=== PATIENT | male | born 1970 | race African-American/Black ===

== ENCOUNTER 2017-08-27 15:34 | Inpatient (IN) | payer OTHER ==
[2017-08-27 16:08] VITALS: BMI 29.8
--- NOTE | 2017-08-27 17:49 | HP ---
CIWA Score - CIWA Score Nausea/Vomitin Muscle Tremors: 3 Anxiety: 3 Agitation: 3 Paroxysmal Sweats: 2 Orientation: 0-Oriented Tacttile Disturbances: 2-Mild Itch/Numbness/Burn Auditory Disturbances: 2-Mild Harshness/Frighten Visual Disturbances: 1-Very Mild Sensitivity Headache: 2-Mild CIWA-Ar Total Score: 21 Admission ROS BHS - HPI Chief Complaint: I AM HERE FOR DETOX FROM ALCOHOL,COCAINE,XANAX,SEEKING DETOX,WITHDRAWAL SYMPTOM, LAST DETOX IVONE OMALLEYDEBBIE ,06/10 COMPLETED SYNCOPE NICOTINE DEPENDENCE ANXIETY,DEPRESSION,INSOMNIA LONGEST PERIOD OF SOBRIETY 7 YEARS Allergies/Adverse Reactions: Allergies Allergy/AdvReac Type Severity Reaction Status Date / Time No Known Allergies Allergy Verified 08/27/17 17:56 History of Present Illness: THIS 47 YEARS OLD MALE WITH ALCOHOL,,COCAINE,XANAX DEPENDENCE,SEEKING DETOX, MENTIONED Exam Limitations: No Limitations - Ebola screening Have you traveled outside of the country in the last 21 days: No (N) Have you had contact with anyone from an Ebola affected area: No Have you been sick,other than usual withdrawal symptoms: No Do you have a fever: No - Review of Systems Constitutional: Loss of Appetite, Malaise, Night Sweats, Changes in sleep, Weakness, Unintentional Wgt. Loss EENT: reports: Tearing, Nose Congestion Respiratory: reports: No Symptoms reported Cardiac: reports: No Symptoms Reported, Palpitations, Syncope GI: reports: Diarrhea, Nausea, Vomiting, Abdominal cramping : reports: No Symptoms Reported Musculoskeletal: reports: Back Pain, Muscle Pain Integumentary: reports: Dryness Neuro: reports: Headache, Tremors Endocrine: reports: No Symptoms Reported Hematology: reports: No Symptoms Reported Psychiatric: reports: Anxious, Depressed (INSOMNIA) Patient History - Patient Medical History Hx Anemia: No Hx Asthma: No Hx Chronic Obstructive Pulmonary Disease (COPD): No Hx Cancer: No Hx Cardiac Disorders: No Hx Congestive Heart Failure: No Hx Hypertension: No Hx Hypercholesterolemia: No Hx Pacemaker: No HX Cerebrovascular Accident: No Hx Seizures: No Hx Dementia: No Hx Diabetes: No Hx Gastrointestinal Disorders: No Hx Liver Disease: No Hx Genitourinary Disorders: No Hx Sexually Transmitted Disorders: No Hx Renal Disease (ESRD): No Hx Thyroid Disease: No Hx Human Immunodeficiency Virus (HIV): No (LAST 11/17 NEGATIVE) Hx Hepatitis C: No Hx Depression: Yes (ANXIETY,INSONIA) Hx Suicide Attempt: No Hx Bipolar Disorder: No Hx Schizophrenia: No Other Medical History: NO SUICIDAL,NO HOMICIDAL,LOW BACK PAIN - Patient Surgical History Past Surgical History: No - PPD History Previous Implant?: Yes Documented Results: Negative w/proof Implanted On Prior [facility] Admission?: No PPD to be Administered?: No - Smoking Cessation Smoking history: Current every day smoker Have you smoked in the past 12 months: Yes Aproximately how many cigarettes per day: 10 Cigars Per Day: 0 Hx Chewing Tobacco Use: No Initiated information on smoking cessation: Yes 'Breaking Loose' booklet given: 08/27/17 - Substance & Tx. History Hx Alcohol Use: Yes Hx Substance Use: Yes Substance Use Type: Alcohol, Cocaine Hx Substance Use Treatment: Yes (IVONE MCINTOSH 06/10) - Substances Abused Alcohol Route: Oral Frequency: Daily Amount used: 1/5TH OF VODKA/6 PACK OF 24 OZS OF BEER Age of first use: 19 Date of Last Use: 08/27/17 Cocaine Route: Smoking Frequency: 3-6 times per week Amount used: 50$ Age of first use: 19 Date of Last Use: 08/26/17 Alprazolam (Xanax) Route: Oral Frequency: Daily Amount used: 4 MGS Age of first use: 29 Date of Last Use: 08/26/17 Family Disease History - Family Disease History Family Disease History: Diabetes: Father (ALCOHOL,), Other: Father Admission Physical Exam S - Vital Signs Vital Signs: Vital Signs - 24 hr 08/27/17 16:06 Temperature 97.5 F L Pulse Rate 68 Respiratory 18 Rate Blood Pressure 139/86 - Physical General Appearance: Yes: Moderate Distress, Tremorous, Irritable, Sweating, Anxious HEENTM: Yes: Normal ENT Inspection, Normocephalic, EMMANUEL Respiratory: Yes: Lungs Clear, Normal Breath Sounds, No Respiratory Distress Neck: Yes: Within Normal Limits, Supple, Trachea in good position Breast: Yes: Within Normal Limits Cardiology: Yes: Within Normal Limits, Regular Rate, S1, S2, Murmur Abdominal: Yes: Within Normal Limits, Normal Bowel Sounds, Non Tender, Flat, Soft Genitourinary: Yes: Within Normal Limits Musculoskeletal: Yes: Back pain, Muscle Pain Extremities: Yes: Tremors Neurological: Yes: lighting specialist II-XII NML intact, Alert, Motor Strength 5/5 Integumentary: Yes: Dry Lymphatic: Yes: Within Normal Limits - Diagnostic (1) Alcohol dependence with uncomplicated withdrawal Current Visit: Yes Status: Acute (2) Cocaine dependence Current Visit: Yes Status: Acute (3) Cannabis dependence Current Visit: Yes Status: Acute (4) Low back pain Current Visit: Yes Status: Acute (5) Nicotine dependence Current Visit: Yes Status: Acute (6) Insomnia secondary to depression with anxiety Current Visit: Yes Status: Acute (7) Weight loss Current Visit: Yes Status: Acute Cleared for Admission [facility] - Detox or Rehab [facility] Level of Care: Medically Managed Detox Regimen/Protocol: Librium [facility] Breath Alcohol Content Breath Alcohol Content: 0.072 Urine Drug Screen - Results Drug Screen Negative: No Urine Drug Screen Results: ZOHRA-Cocaine, BZO-Benzodiazepines
[2017-08-27] MEDS ORDERED: MAGNESIUM CITRATE 300 ML BOTTLE PO PRN (18:13)
[2017-08-27] MEDS ORDERED: guaiFENesin/D-METHORPHAN HB 10 ML UNIT-DOSE CUPS PO PRN (18:13)
[2017-08-27] MEDS ORDERED: chlordiazePOXIDE HCL 25 MG CAPSULE PO ONE (18:13)
[2017-08-27] MEDS ORDERED: hydrOXYzine PAMOATE 50 MG CAPSULE (FP) PO PRN (18:13)
[2017-08-27] MEDS ORDERED: LOPERAMIDE HCL 2 MG CAPSULE PO PRN (18:13)
[2017-08-27] MEDS ORDERED: ACETAMINOPHEN 325 MG TABLET (FP) PO PRN (18:13)
[2017-08-27] MEDS ORDERED: IBUPROFEN 400 MG TABLET (FP) PO PRN (18:13)
[2017-08-27] MEDS ORDERED: MAGNESIUM HYDROX 2400MG/30ML ORAL SUSPENSION 30 ML CUP PO PRN (18:13)
[2017-08-27] MEDS ORDERED: NICOTINE POLACRILEX 2 MG GUM BC PRN (18:13)
[2017-08-27] MEDS ORDERED: MENTHOL/PHENOL 1 EACH UD MM PRN (18:13)
[2017-08-27] MEDS ORDERED: P-EPHED 60MG/TRIPROLIDI 2.5MG TABLET PO PRN (18:13)
[2017-08-27] MEDS ORDERED: MAG HYDROX/AL HYDROX/SIMETH 30 ML UNIT-DOSE CUP PO PRN (18:13)
[2017-08-27] MEDS ORDERED: chlordiazePOXIDE HCL 25 MG CAPSULE PO PRN (18:13)
[2017-08-27] MEDS: THIAMINE HCL 100 MG TABLET (FP) PO SCH (21:27)
[2017-08-27] MEDS: chlordiazePOXIDE HCL 25 MG CAPSULE PO SCH (22:57)
[2017-08-27 23:23] LABS: URINE APPEARANCE CLEAR; URINE BILIRUBIN NEGATIVE (NEGATIVE); URINE BLOOD NEGATIVE (NEGATIVE); URINE COLOR COLORLESS; URINE GLUCOSE (UA) NEGATIVE (NEGATIVE); URINE KETONE NEGATIVE (NEGATIVE); URINE LEUK ESTERASE NEGATIVE (NEGATIVE); URINE NITRITE NEGATIVE (NEGATIVE); URINE PROTEIN NEGATIVE (NEGATIVE); URINE UROBILINOGEN NEGATIVE mg/dL (0.2-1.0)
[2017-08-28] MEDS: chlordiazePOXIDE HCL 25 MG CAPSULE PO SCH ×4 (05:14→22:12)
--- NOTE | 2017-08-28 07:57 | CONSULT ---
[facility] Psychiatric Consult - Data Date of interview: 08/28/17 Admission source: [facility] Identifying data: Mr Paulino is a 47 years old Black male, father of 3 children, unemployed on food stamp, living in supported [facility] house seeking detox treatment for alcohol, cocaine and xanax Substance Abuse History: Reports history of alcohol, cocaine and xanax use. Refer to addiction conselor's note for further information Medical History: Unremarkable except LBP. Smokes 10 cigarettes daily Psychiatric History: Reports history of Bipolar/Schizophrenia with 3 previous psychiatric admissions all at [facility]. Reports that most recent one was 2 weeks ago and was discharged on Wellbutrin XL 150 mg po daily and Trazadone 50 mg po HS. Reports that he was receiving psychiatric outpatient services at a clinic located at [address] [place] [address] till 2 weeks ago when he was terminated. Denies history of suicidal atempt. At present, reports doing and sleeping well. Denies experiencing psychotic, manic or psychotic symptoms, S/H ideations. Patient is unwilling to be on psychotropic medication at this time Physical/Sexual Abuse/Trauma History: Denies history of emotional, physical or sexual abuse as well as DV relationship Additional Comment: Reports history of multiple arrests incluning one felony conviction. Reports beong on probation till 2019 Mental Status Exam - Mental Status Exam Alert and Oriented to: Time, Place, Person Cognitive Function: Fair Patient Appearance: Well Groomed Mood: Hopeful, Euthymic Patient Behavior: Cooperative Speech Pattern: Clear Voice Loudness: Moderately Soft/Quiet Thought Process: Intact, Goal Oriented Thought Disorder: Not Present Hallucinations: Denies Suicidal Ideation: Denies Homicidal Ideation: Denies Insight/Judgement: Poor Sleep: Fair Appetite: Good Muscle strength/Tone: Normal Gait/Station: Normal Psychiatric Findings - Problem List ([place] 1, 2,3) (1) Schizoaffective disorder Current Visit: Yes Status: Acute (2) Alcohol dependence with uncomplicated withdrawal Current Visit: Yes Status: Acute (3) Cocaine dependence Current Visit: Yes Status: Acute (4) Sedative hypnotic or anxiolytic dependence Current Visit: Yes Status: Acute (5) Nicotine dependence Current Visit: Yes Status: Chronic (6) Low back pain Current Visit: Yes Status: Chronic - Initial Treatment Plan Initial Treatment Plan: Monitor progress
[2017-08-28] MEDS: PRENATAL VITAMINS W/ FOLIC ACID TABLET (FP) PO SCH (10:11)
[2017-08-28 10:13] LABS: HEMATOCRIT 39.5 % (35.4-49); HEMOGLOBIN 12.7 GM/dL (11.7-16.9); MCH 31.4 pg (25.7-33.7); MCHC 32.2 g/dl (32.0-35.9); MEAN CELL VOLUME 97.3 fl (80-96); MEAN PLT VOLUME 8.3 fl (7.5-11.1); PLATELET COUNT 210 K/MM3 (134-434); RBC 4.06 M/mm3 (4.00-5.60); RDW 14.3 % (11.9-15.9); WHITE BLOOD COUNT 7.1 K/mm3 (4.0-10.0)
[2017-08-28 10:15] LABS: ALBUMIN 3.1 g/dl (3.4-5.0); ANION GAP 3 (8-16); BILIRUBIN,TOTAL 0.4 mg/dL (0.2-1.0); BLOOD UREA NITROGEN 17 mg/dL (7-18); CHLORIDE 111 mmol/L (98-107); CO2 29 mmol/L (21-32); CREATININE 1.1 mg/dL (0.7-1.3); GLUCOSE,RANDOM 92 mg/dL (74-106); POTASSIUM 3.9 mmol/L (3.5-5.1); SGOT/AST 18 U/L (15-37); SGPT/ALT 23 U/L (12-78); SODIUM 143 mmol/L (136-145); TOT PROT 5.6 g/dl (6.4-8.2)
[2017-08-28 10:16] LABS: ALK PHOS 84 U/L (45-117)
[2017-08-28 10:41] LABS: SICKLE CELL SCREEN NEGATIVE (NEGATIVE)
--- NOTE | 2017-08-28 13:13 | EKG ---
Test Reason : Blood Pressure : / mmHG Vent. Rate : 075 BPM Atrial Rate : 075 BPM P-R Int : 146 ms QRS Dur : 078 ms QT Int : 384 ms P-R-T Axes : 070 -20 049 degrees QTc Int : 428 ms NORMAL SINUS RHYTHM BIATRIAL ENLARGEMENT ABNORMAL ECG NO PREVIOUS ECGS AVAILABLE BASELINE ARTIFACT Confirmed by MAYI HANNAH, IGOR ([id number]) on 08/28/2017 1:12:47 PM Referred By: Jerald Bell Confirmed By:IGOR SEE MD
--- NOTE | 2017-08-28 13:51 | PN ---
[facility] CIWA - CIWA Score Nausea/Vomitin-No Nausea/No Vomiting Muscle Tremors: 3 Anxiety: 3 Agitation: 2 Paroxysmal Sweats: 3 Orientation: 0-Oriented Tacttile Disturbances: 3-Moderate Itch/Numb/Burn Auditory Disturbances: 0-None Visual Disturbances: 2-Mild Sensitivity Headache: 0-None Present CIWA-Ar Total Score: 16 BHS Progress Note (SOAP) Subjective: Sweating, Tremors, Interrupted Sleep, Anxious. Objective: PT A & O X 3, OBSERVED AMBULATING ON UNIT. NO ACUTE DISTRESS. 08/28/17 13:48 Vital Signs Temperature 96.2 F L 08/28/17 09:40 Pulse Rate 70 08/28/17 09:40 Respiratory Rate 20 08/28/17 09:40 Blood Pressure 129/86 08/28/17 09:40 O2 Sat by Pulse Oximetry (%) Laboratory Tests 08/27/17 08/28/17 08/28/17 23:10 07:40 07:40 WBC 7.1 RBC 4.06 Hgb 12.7 Hct 39.5 MCV 97.3 H MCH 31.4 MCHC 32.2 RDW 14.3 Plt Count 210 MPV 8.3 Sickle Cell Screen Negative Sodium 143 Potassium 3.9 Chloride 111 H Carbon Dioxide 29 Anion Gap 3 L BUN 17 Creatinine 1.1 Creat Clearance w eGFR > 60 Random Glucose 92 Calcium 8.0 L Total Bilirubin 0.4 AST 18 ALT 23 Alkaline Phosphatase 84 Total Protein 5.6 L Albumin 3.1 L Urine Color Colorless Urine Appearance Clear Urine pH 6.0 Ur Specific [place] 1.003 Urine Protein Negative Urine Glucose (UA) Negative Urine Ketones Negative Urine Blood Negative Urine Nitrite Negative Urine Bilirubin Negative Urine Urobilinogen Negative Ur Leukocyte Esterase Negative RPR Titer 08/28/17 07:40 WBC RBC Hgb Hct MCV MCH MCHC RDW Plt Count MPV Sickle Cell Screen Sodium Potassium Chloride Carbon Dioxide Anion Gap BUN Creatinine Creat Clearance w eGFR Random Glucose Calcium Total Bilirubin AST ALT Alkaline Phosphatase Total Protein Albumin Urine Color Urine Appearance Urine pH Ur Specific [place] Urine Protein Urine Glucose (UA) Urine Ketones Urine Blood Urine Nitrite Urine Bilirubin Urine Urobilinogen Ur Leukocyte Esterase RPR Titer Nonreactive LABS NOTED. Assessment: 08/28/17 13:49 WITHDRAWAL SYMPTOMS. Plan: CONTINUE DETOX.
[2017-08-28] MEDS: THIAMINE HCL 100 MG TABLET (FP) PO SCH (22:12)
[2017-08-28] MEDS ORDERED: diphenhydrAMINE HCL 25 MG CAPSULE (FP) PO ONE (23:30)
[2017-08-29] MEDS: chlordiazePOXIDE HCL 25 MG CAPSULE PO SCH ×2 (05:27→10:20)
[2017-08-29] MEDS: PRENATAL VITAMINS W/ FOLIC ACID TABLET (FP) PO SCH (10:20)
--- NOTE | 2017-08-29 11:06 | PN ---
S CIWA - CIWA Score Nausea/Vomitin Muscle Tremors: 2 Anxiety: 2 Agitation: 2 Paroxysmal Sweats: 1-Minimal Palms Moist Orientation: 0-Oriented Tacttile Disturbances: 0-None Auditory Disturbances: 0-None Visual Disturbances: 0-None Headache: 0-None Present CIWA-Ar Total Score: 9 S Progress Note (SOAP) Subjective: slight tremor some night sweats requesting d/c tomorrow to attend rehab @ [facility] because "they might have a bed for me" Objective: 08/29/17 11:04 Vital Signs Temperature 96.3 F L 08/29/17 06:53 Pulse Rate 82 08/29/17 09:11 Respiratory Rate 18 08/29/17 09:11 Blood Pressure 130/90 08/29/17 09:11 O2 Sat by Pulse Oximetry (%) Laboratory Last Values WBC 7.1 K/mm3 (4.0-10.0) 08/28/17 07:40 RBC 4.06 M/mm3 (4.00-5.60) 08/28/17 07:40 Hgb 12.7 GM/dL (11.7-16.9) 08/28/17 07:40 Hct 39.5 % (35.4-49) 08/28/17 07:40 MCV 97.3 fl (80-96) H 08/28/17 07:40 MCH 31.4 pg (25.7-33.7) 08/28/17 07:40 MCHC 32.2 g/dl (32.0-35.9) 08/28/17 07:40 RDW 14.3 % (11.9-15.9) 08/28/17 07:40 Plt Count 210 K/MM3 (134-434) 08/28/17 07:40 MPV 8.3 fl (7.5-11.1) 08/28/17 07:40 Sickle Cell Screen Negative (NEGATIVE) 08/28/17 07:40 Sodium 143 mmol/L (136-145) 08/28/17 07:40 Potassium 3.9 mmol/L (3.5-5.1) 08/28/17 07:40 Chloride 111 mmol/L (98-107) H 08/28/17 07:40 Carbon Dioxide 29 mmol/L (21-32) 08/28/17 07:40 Anion Gap 3 (8-16) L 08/28/17 07:40 BUN 17 mg/dL (7-18) 08/28/17 07:40 Creatinine 1.1 mg/dL (0.7-1.3) 08/28/17 07:40 Creat Clearance w eGFR > 60 (>60) 08/28/17 07:40 Random Glucose 92 mg/dL (74-106) 08/28/17 07:40 Calcium 8.0 mg/dL (8.5-10.1) L 08/28/17 07:40 Total Bilirubin 0.4 mg/dL (0.2-1.0) 08/28/17 07:40 AST 18 U/L (15-37) 08/28/17 07:40 ALT 23 U/L (12-78) 08/28/17 07:40 Alkaline Phosphatase 84 U/L (45-117) 08/28/17 07:40 Total Protein 5.6 g/dl (6.4-8.2) L 08/28/17 07:40 Albumin 3.1 g/dl (3.4-5.0) L 08/28/17 07:40 Urine Color Colorless 08/27/17 23:10 Urine Appearance Clear 08/27/17 23:10 Urine pH 6.0 (5.0-8.0) 08/27/17 23:10 Ur Specific [place] 1.003 (1.001-1.035) 08/27/17 23:10 Urine Protein Negative (NEGATIVE) 08/27/17 23:10 Urine Glucose (UA) Negative (NEGATIVE) 08/27/17 23:10 Urine Ketones Negative (NEGATIVE) 08/27/17 23:10 Urine Blood Negative (NEGATIVE) 08/27/17 23:10 Urine Nitrite Negative (NEGATIVE) 08/27/17 23:10 Urine Bilirubin Negative (NEGATIVE) 08/27/17 23:10 Urine Urobilinogen Negative mg/dL (0.2-1.0) 08/27/17 23:10 Ur Leukocyte Esterase Negative (NEGATIVE) 08/27/17 23:10 RPR Titer Nonreactive (NONREACTIVE) 08/28/17 07:40 labs noted Assessment: 08/29/17 11:04 withdrawal sx no acute distress Plan: continue detox For d/c tomorrow
[2017-08-29] MEDS ORDERED: chlordiazePOXIDE HCL 25 MG CAPSULE PO PRN (17:01)
[2017-08-29] MEDS: chlordiazePOXIDE 5 MG CAPSULE PO SCH ×3 (17:15→22:20)
[2017-08-29] MEDS: THIAMINE HCL 100 MG TABLET (FP) PO SCH (21:46)
[2017-08-29] MEDS ORDERED: chlordiazePOXIDE 5 MG CAPSULE PO SCH (23:00)
[2017-08-30] MEDS ORDERED: chlordiazePOXIDE HCL 10 MG CAPSULE PO SCH ×2 (05:00→23:00)
[2017-08-30 09:05] VITALS: BP 127/88; PULSE 85; TEMP 98.2
--- NOTE | 2017-08-30 13:33 | DS ---
[facility] Detox Discharge Summary Admission Date: 08/27/17 Discharge Date: 08/30/17 - History Present History: Alcohol Dependence, Cannabis Dependence, Cocaine Dependence Additional Comments: PATIENT GOING HOME AT THIS TIME, WILL APPLY FOR ADMISSION AT [facility] OR OTHER REHAB IN THE NEXT FEW DAYS. PATIENT WAS DISCHARGED FROM DETOX UNIT IN STABLE MEDICAL CONDITION. Pertinent Past History: Nicotine Dependence, Depression, Anxiety, Insomnia, Lower Back Pain, Schiozoaffective Disorder. - Physical Exam Results Vital Signs: Vital Signs Temperature 98.2 F 08/30/17 09:03 Pulse Rate 85 08/30/17 09:03 Respiratory Rate 18 08/30/17 09:03 Blood Pressure 127/88 08/30/17 09:03 O2 Sat by Pulse Oximetry (%) Pertinent Admission Physical Exam Findings: WITHDRAWAL SYMPTOMS. Laboratory Tests 08/27/17 08/28/17 08/28/17 23:10 07:40 07:40 WBC 7.1 RBC 4.06 Hgb 12.7 Hct 39.5 MCV 97.3 H MCH 31.4 MCHC 32.2 RDW 14.3 Plt Count 210 MPV 8.3 Sickle Cell Screen Negative Sodium 143 Potassium 3.9 Chloride 111 H Carbon Dioxide 29 Anion Gap 3 L BUN 17 Creatinine 1.1 Creat Clearance w eGFR > 60 Random Glucose 92 Calcium 8.0 L Total Bilirubin 0.4 AST 18 ALT 23 Alkaline Phosphatase 84 Total Protein 5.6 L Albumin 3.1 L Urine Color Colorless Urine Appearance Clear Urine pH 6.0 Ur Specific [place] 1.003 Urine Protein Negative Urine Glucose (UA) Negative Urine Ketones Negative Urine Blood Negative Urine Nitrite Negative Urine Bilirubin Negative Urine Urobilinogen Negative Ur Leukocyte Esterase Negative RPR Titer 08/28/17 07:40 WBC RBC Hgb Hct MCV MCH MCHC RDW Plt Count MPV Sickle Cell Screen Sodium Potassium Chloride Carbon Dioxide Anion Gap BUN Creatinine Creat Clearance w eGFR Random Glucose Calcium Total Bilirubin AST ALT Alkaline Phosphatase Total Protein Albumin Urine Color Urine Appearance Urine pH Ur Specific [place] Urine Protein Urine Glucose (UA) Urine Ketones Urine Blood Urine Nitrite Urine Bilirubin Urine Urobilinogen Ur Leukocyte Esterase RPR Titer Nonreactive LABS NOTED. - Treatment Hospital Course: Detox Protocol Followed, Detoxed Safely, Responded well, Discharged Condition Good, Rehab Referral Accepted Patient has Accepted a Rehab Referral to: [facility] ([place], [place] . - Medication Discharge Medications: Ambulatory Orders NK [No Known Home Medication] 08/27/17 - Diagnosis (1) Alcohol dependence with uncomplicated withdrawal Status: Acute (2) Cannabis dependence Status: Acute (3) Cocaine dependence Status: Acute Qualifiers: Substance use status: uncomplicated Qualified Code(s): F14.20 - Cocaine dependence, uncomplicated (4) Low back pain Status: Chronic Qualifiers: Chronicity: unspecified Back pain laterality: unspecified Sciatica presence: unspecified whether sciatica present Qualified Code(s): M54.5 - Low back pain (5) Nicotine dependence Status: Chronic Qualifiers: Nicotine product type: cigarettes Substance use status: uncomplicated Qualified Code(s): F17.210 - Nicotine dependence, cigarettes, uncomplicated (6) Insomnia secondary to depression with anxiety Status: Acute (7) Weight loss Status: Acute (8) Schizoaffective disorder Status: Acute Qualifiers: Schizoaffective disorder type: unspecified Qualified Code(s): F25.9 - Schizoaffective disorder, unspecified (9) Sedative hypnotic or anxiolytic dependence Status: Acute - AMA Did Patient Leave Against Medical Advice: No
== END 2017-08-30 09:11 | disposition home or self-care (01) | DRG 774 ==
LOC: YASAS 15:34 → Y3N 18:18
PROVIDERS: ADMIT Internal Medicine; ATTEND Internal Medicine
PROC: HZ2ZZZZ Detoxification Services for Substance Abuse Treatment (ICD-10-PCS; principal; 2017-08-27)
DX: F10.230 Alcohol dependence with withdrawal, uncomplicated (principal); F13.20 Sedative, hypnotic or anxiolytic dependence, uncomplicated; F14.20 Cocaine dependence, uncomplicated; F12.20 Cannabis dependence, uncomplicated; F17.210 Nicotine dependence, cigarettes, uncomplicated; F51.05 Insomnia due to other mental disorder; F25.9 Schizoaffective disorder, unspecified; M54.5 Low back pain; R01.1 Cardiac murmur, unspecified; Z87.898 Personal history of other specified conditions; Z59.0 Homelessness
CPT/HCPCS: 36415; 80053; 81003; 85027; 85660; 86593; 93005; 93010

== ENCOUNTER 2017-12-16 08:31 | Inpatient (IN) | payer OTHER ==
[2017-12-16 10:37] VITALS: BMI 26.8
[2017-12-16] MEDS ORDERED: MENTHOL/PHENOL 1 EACH UD MM PRN (14:44)
[2017-12-16] MEDS ORDERED: MAGNESIUM CITRATE 300 ML BOTTLE PO PRN (14:44)
[2017-12-16] MEDS ORDERED: P-EPHED 60MG/TRIPROLIDI 2.5MG TABLET PO PRN (14:44)
[2017-12-16] MEDS ORDERED: NICOTINE POLACRILEX 2 MG GUM BUC PRN (14:44)
[2017-12-16] MEDS ORDERED: chlordiazePOXIDE HCL 25 MG CAPSULE PO PRN ×2 (14:44→16:36)
[2017-12-16] MEDS ORDERED: MAG HYDROX/AL HYDROX/SIMETH 30 ML UNIT-DOSE CUP PO PRN (14:44)
[2017-12-16] MEDS ORDERED: ACETAMINOPHEN 325 MG TABLET (FP) PO PRN (14:44)
[2017-12-16] MEDS ORDERED: guaiFENesin/D-METHORPHAN HB 10 ML UNIT-DOSE CUPS PO PRN (14:44)
[2017-12-16] MEDS ORDERED: MAGNESIUM HYDROX 2400MG/30ML ORAL SUSPENSION 30 ML CUP PO PRN (14:44)
[2017-12-16] MEDS ORDERED: LOPERAMIDE HCL 2 MG CAPSULE PO PRN (14:44)
--- NOTE | 2017-12-16 14:44 | HP ---
CIWA Score - CIWA Score Nausea/Vomitin-Mild Nausea/No Vomiting Muscle Tremors: 4-Moderate,w/Arms Extend Anxiety: 4-Mod. Anxious/Guarded Agitation: 4-Moderately Restless Paroxysmal Sweats: 1-Minimal Palms Moist Orientation: 0-Oriented Tacttile Disturbances: 2-Mild Itch/Numbness/Burn Auditory Disturbances: 0-None Visual Disturbances: 0-None Headache: 0-None Present CIWA-Ar Total Score: 16 Admission ROS S - HPI Chief Complaint: alcohol withdrawal sx Allergies/Adverse Reactions: Allergies Allergy/AdvReac Type Severity Reaction Status Date / Time No Known Allergies Allergy Verified 08/27/17 17:56 History of Present Illness: 47 years old male with long history of alcohol nicotine dependence longest sobriety 7 years has weight loss and depression is admitted to detox Exam Limitations: No Limitations - Ebola screening Have you traveled outside of the country in the last 21 days: No (N) Have you had contact with anyone from an Ebola affected area: No Have you been sick,other than usual withdrawal symptoms: No Do you have a fever: No - Review of Systems Constitutional: Loss of Appetite, Changes in sleep, Unintentional Wgt. Loss, Unexplained wgt Loss EENT: reports: No Symptoms Reported Respiratory: reports: SOB with Exertion Cardiac: reports: No Symptoms Reported GI: reports: Nausea, Poor Appetite, Poor Fluid Intake, Vomiting, Abdominal cramping : reports: No Symptoms Reported Musculoskeletal: reports: No Symptoms Reported Integumentary: reports: No Symptoms Reported Neuro: reports: Tremors Endocrine: reports: No Symptoms Reported Hematology: reports: No Symptoms Reported Psychiatric: reports: Judgement Intact, Orientated x3, Anxious, Depressed Other Systems: Reviewed and Negative Patient History - Patient Medical History Hx Anemia: No Hx Asthma: No Hx Chronic Obstructive Pulmonary Disease (COPD): No Hx Cancer: No Hx Cardiac Disorders: No Hx Congestive Heart Failure: No Hx Hypertension: No Hx Hypercholesterolemia: No Hx Pacemaker: No HX Cerebrovascular Accident: No Hx Seizures: No Hx Dementia: No Hx Diabetes: No Hx Gastrointestinal Disorders: No Hx Liver Disease: No Hx Genitourinary Disorders: No Hx Sexually Transmitted Disorders: No Hx Renal Disease (ESRD): No Hx Thyroid Disease: No Hx Human Immunodeficiency Virus (HIV): No (LAST 06/10 NEGATIVE) Hx Hepatitis C: No Hx Depression: Yes Hx Suicide Attempt: No Hx Bipolar Disorder: No Hx Schizophrenia: No - Patient Surgical History Past Surgical History: No - PPD History Previous Implant?: Yes Documented Results: Negative w/proof Implanted On Prior R Admission?: Yes Date: 06/10/17 PPD to be Administered?: No - Smoking Cessation Smoking history: Current every day smoker Have you smoked in the past 12 months: Yes Aproximately how many cigarettes per day: 10 Cigars Per Day: 0 Hx Chewing Tobacco Use: No Initiated information on smoking cessation: Yes 'Breaking Loose' booklet given: 12/16/17 - Substance & Tx. History Hx Alcohol Use: Yes Hx Substance Use: Yes Substance Use Type: Alcohol, Cocaine Hx Substance Use Treatment: Yes (05/2017) - Substances Abused Alcohol Route: Oral Frequency: Daily Amount used: 1 PINT VODKA Age of first use: 17 Date of Last Use: 12/16/17 Cocaine Route: Smoking Frequency: Daily Amount used: $50 Age of first use: 20 Date of Last Use: 12/15/17 Alprazolam (Xanax) Route: Oral Frequency: 3-6 times per week Amount used: 1-2 PILLS Age of first use: 47 Date of Last Use: 12/14/17 Family Disease History - Family Disease History Family Disease History: Diabetes: Father (ALCOHOL,), Other: Father Admission Physical Exam S - Vital Signs Vital Signs: Vital Signs - 24 hr 12/16/17 10:35 Temperature 97.6 F Pulse Rate 71 Respiratory 20 Rate Blood Pressure 150/78 - Physical General Appearance: Yes: Appropriately Dressed, Mild Distress, Alcohol on Breath , Thin, Tremorous, Irritable, Sweating, Anxious HEENTM: Yes: Hearing grossly Normal, Normocephalic, Normal Voice Respiratory: Yes: Chest Non-Tender, Lungs Clear, Normal Breath Sounds, No Respiratory Distress, No Accessory Muscle Use Neck: Yes: Supple, Trachea in good position Breast: Yes: Breasts Symetrical, No Discharge Cardiology: Yes: Regular Rhythm, Regular Rate, S1, S2 Abdominal: Yes: Non Tender, Flat, Increased Bowel Sounds Genitourinary: Yes: Within Normal Limits Back: Yes: Normal Inspection Musculoskeletal: Yes: full range of Motion, Gait Steady Extremities: Yes: Normal Inspection, Normal Range of Motion, Non-Tender, Tremors Neurological: Yes: Fully Oriented, Alert, Motor Strength 5/5, Normal Response, Depressed Affect Integumentary: Yes: Warm Lymphatic: Yes: Within Normal Limits - Diagnostic (1) Alcohol dependence with uncomplicated withdrawal Current Visit: Yes Status: Acute (2) Schizoaffective disorder Current Visit: Yes Status: Suspected Qualifiers: Schizoaffective disorder type: unspecified Qualified Code(s): F25.9 - Schizoaffective disorder, unspecified (3) Weight loss Current Visit: Yes Status: Acute Cleared for Admission [facility] - Detox or Rehab [facility] Level of Care: Medically Managed Detox Regimen/Protocol: Librium [facility] Breath Alcohol Content Breath Alcohol Content: 0.012 Urine Drug Screen - Results Drug Screen Negative: No Urine Drug Screen Results: ZOHRA-Cocaine
[2017-12-16] MEDS ORDERED: NICOTINE 14 MG/24 HOURS TOPICAL PATCH TD PRN (15:15)
[2017-12-16] MEDS: chlordiazePOXIDE HCL 25 MG CAPSULE PO SCH ×2 (17:05→22:23)
[2017-12-16] MEDS: THIAMINE HCL 100 MG TABLET (FP) PO SCH (22:23)
[2017-12-16] MEDS: MELATONIN 5 MG TABLETS PO PRN (22:23)
[2017-12-16] MEDS ORDERED: chlordiazePOXIDE HCL 25 MG CAPSULE PO SCH (23:00)
[2017-12-16 23:23] LABS: URINE APPEARANCE TURBID; URINE BILIRUBIN NEGATIVE (<2.0 mg/dL); URINE COLOR YELLOW; URINE GLUCOSE (UA) NEGATIVE (NEGATIVE); URINE KETONE NEGATIVE (NEGATIVE); URINE LEUK ESTERASE NEGATIVE (NEGATIVE); URINE NITRITE NEGATIVE (NEGATIVE); URINE PROTEIN NEGATIVE (NEGATIVE)
[2017-12-16 23:32] LABS: URINE MUCUS FEW
[2017-12-17] MEDS: chlordiazePOXIDE HCL 25 MG CAPSULE PO SCH ×4 (06:37→22:08)
--- NOTE | 2017-12-17 08:49 | EKG ---
Test Reason : Blood Pressure : / mmHG Vent. Rate : 060 BPM Atrial Rate : 060 BPM P-R Int : 148 ms QRS Dur : 096 ms QT Int : 430 ms P-R-T Axes : 071 -44 044 degrees QTc Int : 430 ms NORMAL SINUS RHYTHM RIGHT ATRIAL ENLARGEMENT LEFT AXIS DEVIATION PULMONARY DISEASE PATTERN ABNORMAL ECG WHEN COMPARED WITH ECG OF 27-AUG-2017 21:16, NO SIGNIFICANT CHANGE WAS FOUND Confirmed by HARRIS HANNAH, MARLIN ([id number]) on 12/17/2017 8:48:40 AM Referred By: Confirmed By:MARLIN IGLESIAS MD
[2017-12-17] MEDS ORDERED: HYDROCORTISONE 2.5% TOPICAL CREAM 30 GM TUBE PR SCH (10:00)
[2017-12-17 10:13] LABS: HEMATOCRIT 41.2 % (35.4-49); HEMOGLOBIN 13.7 GM/dL (11.7-16.9); MCH 32.9 pg (25.7-33.7); MCHC 33.3 g/dl (32.0-35.9); MEAN CELL VOLUME 98.7 fl (80-96); MEAN PLT VOLUME 9.1 fl (7.5-11.1); PLATELET COUNT 217 K/MM3 (134-434); RBC 4.17 M/mm3 (4.00-5.60); RDW 14.4 % (11.9-15.9); WHITE BLOOD COUNT 5.9 K/mm3 (4.0-10.0)
[2017-12-17] MEDS: PRENATAL VITAMINS W/ FOLIC ACID TABLET (FP) PO SCH (10:28)
[2017-12-17 10:37] LABS: CHLORIDE 109 mmol/L (98-107); POTASSIUM 4.7 mmol/L (3.5-5.1); SODIUM 144 mmol/L (136-145)
[2017-12-17 11:01] LABS: ALBUMIN 3.5 g/dl (3.4-5.0); ALK PHOS 78 U/L (45-117); ANION GAP 7 (8-16); BILIRUBIN,TOTAL 1.1 mg/dL (0.2-1.0); BLOOD UREA NITROGEN 14 mg/dL (7-18); CALCIUM 9.1 mg/dL (8.5-10.1); CO2 28 mmol/L (21-32); CREATININE 1.4 mg/dL (0.7-1.3); GLUCOSE,RANDOM 69 mg/dL (74-106); SGOT/AST 26 U/L (15-37); SGPT/ALT 20 U/L (12-78); TOT PROT 6.5 g/dl (6.4-8.2)
[2017-12-17] MEDS ORDERED: BENZOCAINE 28 GM HEMORRHOIDAL OINTMENT PR ONE (11:45)
--- NOTE | 2017-12-17 12:23 | PN ---
[facility] CIWA - CIWA Score Nausea/Vomitin Muscle Tremors: 3 Anxiety: 3 Agitation: 3 Paroxysmal Sweats: 1-Minimal Palms Moist Orientation: 0-Oriented Tacttile Disturbances: 1-Very Mild Itch/Numbness Auditory Disturbances: 1-Very Mild Visual Disturbances: 1-Very Mild Sensitivity Headache: 2-Mild CIWA-Ar Total Score: 18 S Progress Note (SOAP) Subjective: ALERT,IRRITABLE,ANXIOUS,INTERRUPTED SLEEP,TREMOR,COMPLAINED OF HEMORRHOID Objective: 12/17/17 12:20 Vital Signs Temperature 97.5 F L 12/17/17 09:24 Pulse Rate 63 12/17/17 09:24 Respiratory Rate 20 12/17/17 09:24 Blood Pressure 112/63 12/17/17 09:24 O2 Sat by Pulse Oximetry (%) EKG NSR,QT 430/430 NO CHEST PAIN,NO SOB,NO DIZZINESS Laboratory Last Values WBC 5.9 K/mm3 (4.0-10.0) 12/17/17 05:30 RBC 4.17 M/mm3 (4.00-5.60) 12/17/17 05:30 Hgb 13.7 GM/dL (11.7-16.9) 12/17/17 05:30 Hct 41.2 % (35.4-49) 12/17/17 05:30 MCV 98.7 fl (80-96) H 12/17/17 05:30 MCH 32.9 pg (25.7-33.7) 12/17/17 05:30 MCHC 33.3 g/dl (32.0-35.9) 12/17/17 05:30 RDW 14.4 % (11.9-15.9) 12/17/17 05:30 Plt Count 217 K/MM3 (134-434) 12/17/17 05:30 MPV 9.1 fl (7.5-11.1) 12/17/17 05:30 Sodium 144 mmol/L (136-145) 12/17/17 05:30 Potassium 4.7 mmol/L (3.5-5.1) D 12/17/17 05:30 Chloride 109 mmol/L (98-107) H 12/17/17 05:30 Carbon Dioxide 28 mmol/L (21-32) 12/17/17 05:30 Anion Gap 7 (8-16) L 12/17/17 05:30 BUN 14 mg/dL (7-18) 12/17/17 05:30 Creatinine 1.4 mg/dL (0.7-1.3) H D 12/17/17 05:30 Creat Clearance w eGFR 54.09 (>60) 12/17/17 05:30 Random Glucose 69 mg/dL (74-106) L D 12/17/17 05:30 Calcium 9.1 mg/dL (8.5-10.1) 12/17/17 05:30 Total Bilirubin 1.1 mg/dL (0.2-1.0) H D 12/17/17 05:30 AST 26 U/L (15-37) D 12/17/17 05:30 ALT 20 U/L (12-78) 12/17/17 05:30 Alkaline Phosphatase 78 U/L (45-117) 12/17/17 05:30 Total Protein 6.5 g/dl (6.4-8.2) 12/17/17 05:30 Albumin 3.5 g/dl (3.4-5.0) 12/17/17 05:30 Urine Color Yellow 12/16/17 18:49 Urine Appearance Turbid 12/16/17 18:49 Urine pH 5.0 (5.0-8.0) 12/16/17 18:49 Ur Specific [place] 1.028 (1.001-1.035) 12/16/17 18:49 Urine Protein Negative (NEGATIVE) 12/16/17 18:49 Urine Glucose (UA) Negative (NEGATIVE) 12/16/17 18:49 Urine Ketones Negative (NEGATIVE) 12/16/17 18:49 Urine Blood 1+ (NEGATIVE) H 12/16/17 18:49 Urine Nitrite Negative (NEGATIVE) 12/16/17 18:49 Urine Bilirubin Negative (<2.0 mg/dL) 12/16/17 18:49 Urine Urobilinogen 2.0 mg/dL (0.2-1.0) 12/16/17 18:49 Ur Leukocyte Esterase Negative (NEGATIVE) 12/16/17 18:49 Urine WBC (Auto) None /hpf (3-5) 12/16/17 18:49 Urine RBC (Auto) 2 /hpf (0-3) 12/16/17 18:49 Urine Mucus Few 12/16/17 18:49 HIV 1&2 Antibody Screen Negative 12/16/17 12:00 HIV P24 Antigen Negative 12/16/17 12:00 12/17/17 12:23 LAB PENDING Assessment: 12/17/17 12:23 WITHDRAWAL SYMPTOM Plan: CONTINUE DETOX,HEMORRHOID OINTMENT
[2017-12-17] MEDS ORDERED: CLOTRIMAZOLE 1% CREAM 15 GM TUBE TP ONE (14:03)
--- NOTE | 2017-12-17 15:14 | CONSULT ---
[facility] Psychiatric Consult - Data Date of interview: 12/17/17 Admission source: [facility] Identifying data: Readmission to [facility] for this 47 y/o AA male seeking detox treatment on for alcohol,xanax and cocaine dependence.Patient is ,a father of three,domiciled,unemployed and supported on Public Assistance. Substance Abuse History: Discussed with patient.Mr Paulino confirmed chronic use of alcohol,cocaine and xanax.Smoking history: Current every day smoker. Have you smoked in the past 12 months: Yes. Aproximately how many cigarettes per day : 10. Cigars Per Day: 0. Hx Chewing Tobacco Use: No. Initiated information on smoking cessation: Yes. 'Breaking Loose' booklet given: 12/16/17. - Substance & Tx. History. Hx Alcohol Use: Yes. Hx Substance Use: Yes. Substance Use Type: Alcohol, Cocaine. Hx Substance Use Treatment: Yes (05/2017) . - Substances Abused. Alcohol. Route: Oral. Frequency: Daily. Amount used: 1 PINT VODKA. Age of first use: 17. Date of Last Use: 12/16/17. Cocaine. Route: Smoking. Frequency: Daily. Amount used: $50. Age of first use: 20. Date of Last Use: 12/15/17. Alprazolam (Xanax). Route: Oral. Frequency: 3-6 times per week. Amount used: 1-2 PILLS. Age of first use: 47. Date of Last Use: 12/14/17 Medical History: Patient endorses good general health. Psychiatric History: Patient admits to a history of multiple psychiatric hospitalizations (total of four / all at the same facility : [facility]).Diagnosed with " Bipolar Disorder and Schizophrenia ".Mr Paulino reports past exposure to trazodone,bupropion,clonazepam.NOT taken for months as per self-report.Totally lost to psychiatric OPD care.Patient denies history of suicide attempts. Physical/Sexual Abuse/Trauma History: Patient denies. Additional Comment: Urine Drug Screen Results: ZOHRA-Cocaine.Noted. Mental Status Exam - Mental Status Exam Alert and Oriented to: Time, Place, Person Cognitive Function: Good Patient Appearance: Well Groomed Mood: Hopeful, Euthymic Affect: Appropriate, Normal Range Patient Behavior: Appropriate, Cooperative Speech Pattern: Clear Voice Loudness: Normal Thought Process: Intact, Goal Oriented Thought Disorder: Not Present Hallucinations: Denies Suicidal Ideation: Denies Homicidal Ideation: Denies Insight/Judgement: Poor Sleep: Well Appetite: Good Muscle strength/Tone: Normal Gait/Station: Normal Psychiatric Findings - Problem List ([place] 1, 2,3) (1) Alcohol dependence with uncomplicated withdrawal Current Visit: Yes Status: Acute (2) Cocaine dependence Current Visit: Yes Status: Acute Qualifiers: Substance use status: uncomplicated Qualified Code(s): F14.20 - Cocaine dependence, uncomplicated (3) Nicotine dependence Current Visit: Yes Status: Chronic Qualifiers: Nicotine product type: cigarettes Substance use status: uncomplicated Qualified Code(s): F17.210 - Nicotine dependence, cigarettes, uncomplicated (4) Schizoaffective disorder Current Visit: Yes Status: Suspected Qualifiers: Schizoaffective disorder type: unspecified Qualified Code(s): F25.9 - Schizoaffective disorder, unspecified Comment: As per existing records and self-report.Chronic non-adherence to OPD care and mood stabilizers. (5) Non compliance w medication regimen Current Visit: Yes Status: Chronic - Initial Treatment Plan Initial Treatment Plan: Psychoeducation.Detoxification in progress.Observation.
[2017-12-17] MEDS: CLOTRIMAZOLE 1% CREAM 15 GM TUBE TP SCH (22:07)
[2017-12-17] MEDS: THIAMINE HCL 100 MG TABLET (FP) PO SCH (22:07)
[2017-12-17] MEDS ORDERED: chlordiazePOXIDE HCL 25 MG CAPSULE PO SCH (23:00)
[2017-12-18] MEDS: chlordiazePOXIDE HCL 25 MG CAPSULE PO SCH ×2 (05:38→10:04)
[2017-12-18] MEDS: IBUPROFEN 400 MG TABLET (FP) PO PRN (05:39)
[2017-12-18] MEDS: BENZOCAINE 28 GM HEMORRHOIDAL OINTMENT PR SCH (10:04)
[2017-12-18] MEDS: PRENATAL VITAMINS W/ FOLIC ACID TABLET (FP) PO SCH (10:04)
[2017-12-18] MEDS: CLOTRIMAZOLE 1% CREAM 15 GM TUBE TP SCH ×2 (10:04→22:07)
--- NOTE | 2017-12-18 15:08 | PN ---
S CIWA - CIWA Score Nausea/Vomitin Muscle Tremors: 3 Anxiety: 3 Agitation: 2 Paroxysmal Sweats: 1-Minimal Palms Moist Orientation: 0-Oriented Tacttile Disturbances: 1-Very Mild Itch/Numbness Auditory Disturbances: 1-Very Mild Visual Disturbances: 0-None Headache: 2-Mild CIWA-Ar Total Score: 16 BHS Progress Note (SOAP) Subjective: alert,irritable,anxious,interrupted sleep,tremor Objective: 12/18/17 15:07 Vital Signs Temperature 97.7 F 12/18/17 14:10 Pulse Rate 68 12/18/17 14:10 Respiratory Rate 16 12/18/17 14:10 Blood Pressure 126/84 12/18/17 14:10 O2 Sat by Pulse Oximetry (%) 12/18/17 15:07 Laboratory Last Values WBC 5.9 K/mm3 (4.0-10.0) 12/17/17 05:30 RBC 4.17 M/mm3 (4.00-5.60) 12/17/17 05:30 Hgb 13.7 GM/dL (11.7-16.9) 12/17/17 05:30 Hct 41.2 % (35.4-49) 12/17/17 05:30 MCV 98.7 fl (80-96) H 12/17/17 05:30 MCH 32.9 pg (25.7-33.7) 12/17/17 05:30 MCHC 33.3 g/dl (32.0-35.9) 12/17/17 05:30 RDW 14.4 % (11.9-15.9) 12/17/17 05:30 Plt Count 217 K/MM3 (134-434) 12/17/17 05:30 MPV 9.1 fl (7.5-11.1) 12/17/17 05:30 Sodium 144 mmol/L (136-145) 12/17/17 05:30 Potassium 4.7 mmol/L (3.5-5.1) D 12/17/17 05:30 Chloride 109 mmol/L (98-107) H 12/17/17 05:30 Carbon Dioxide 28 mmol/L (21-32) 12/17/17 05:30 Anion Gap 7 (8-16) L 12/17/17 05:30 BUN 14 mg/dL (7-18) 12/17/17 05:30 Creatinine 1.4 mg/dL (0.7-1.3) H D 12/17/17 05:30 Creat Clearance w eGFR 54.09 (>60) 12/17/17 05:30 Random Glucose 69 mg/dL (74-106) L D 12/17/17 05:30 Calcium 9.1 mg/dL (8.5-10.1) 12/17/17 05:30 Total Bilirubin 1.1 mg/dL (0.2-1.0) H D 12/17/17 05:30 AST 26 U/L (15-37) D 12/17/17 05:30 ALT 20 U/L (12-78) 12/17/17 05:30 Alkaline Phosphatase 78 U/L (45-117) 12/17/17 05:30 Total Protein 6.5 g/dl (6.4-8.2) 12/17/17 05:30 Albumin 3.5 g/dl (3.4-5.0) 12/17/17 05:30 Urine Color Yellow 12/16/17 18:49 Urine Appearance Turbid 12/16/17 18:49 Urine pH 5.0 (5.0-8.0) 12/16/17 18:49 Ur Specific [place] 1.028 (1.001-1.035) 12/16/17 18:49 Urine Protein Negative (NEGATIVE) 12/16/17 18:49 Urine Glucose (UA) Negative (NEGATIVE) 12/16/17 18:49 Urine Ketones Negative (NEGATIVE) 12/16/17 18:49 Urine Blood 1+ (NEGATIVE) H 12/16/17 18:49 Urine Nitrite Negative (NEGATIVE) 12/16/17 18:49 Urine Bilirubin Negative (<2.0 mg/dL) 12/16/17 18:49 Urine Urobilinogen 2.0 mg/dL (0.2-1.0) 12/16/17 18:49 Ur Leukocyte Esterase Negative (NEGATIVE) 12/16/17 18:49 Urine WBC (Auto) None /hpf (3-5) 12/16/17 18:49 Urine RBC (Auto) 2 /hpf (0-3) 12/16/17 18:49 Urine Mucus Few 12/16/17 18:49 RPR Titer Nonreactive (NONREACTIVE) 12/17/17 05:30 Hep C Ab Diagnostic 0.1 s/co ratio (0.0-0.9) 12/17/17 05:30 Liver Fibrosis Interp (.) 12/17/17 05:30 HIV 1&2 Antibody Screen Negative 12/16/17 12:00 HIV P24 Antigen Negative 12/16/17 12:00 Assessment: 12/18/17 15:08 withdrawal symptom Plan: continue detox
[2017-12-18] MEDS: chlordiazePOXIDE 5 MG CAPSULE PO SCH ×2 (17:28→22:07)
[2017-12-18] MEDS: THIAMINE HCL 100 MG TABLET (FP) PO SCH (22:07)
[2017-12-18] MEDS: MELATONIN 5 MG TABLETS PO PRN (22:07)
[2017-12-18] MEDS ORDERED: chlordiazePOXIDE 5 MG CAPSULE PO SCH (23:00)
[2017-12-19] MEDS: chlordiazePOXIDE 5 MG CAPSULE PO SCH ×2 (06:40→10:14)
[2017-12-19] MEDS: IBUPROFEN 400 MG TABLET (FP) PO PRN (09:29)
[2017-12-19] MEDS: PRENATAL VITAMINS W/ FOLIC ACID TABLET (FP) PO SCH (10:13)
[2017-12-19] MEDS: BENZOCAINE 28 GM HEMORRHOIDAL OINTMENT PR SCH (10:14)
[2017-12-19] MEDS: CLOTRIMAZOLE 1% CREAM 15 GM TUBE TP SCH ×2 (10:14→22:03)
--- NOTE | 2017-12-19 13:13 | PN ---
S Progress Note (SOAP) Subjective: ALERT,IRRITABLE,ANXIOUS,INTERRUPTED SLEEP Objective: 12/19/17 13:12 Vital Signs Temperature 96.6 F L 12/19/17 09:30 Pulse Rate 73 12/19/17 09:30 Respiratory Rate 20 12/19/17 09:30 Blood Pressure 131/96 12/19/17 09:30 O2 Sat by Pulse Oximetry (%) Assessment: 12/19/17 13:13 WITHDRAWAL SYMPTOM Plan: CONTINUE DETOX,DISCHARGE IN AM
[2017-12-19] MEDS: chlordiazePOXIDE HCL 10 MG CAPSULE PO SCH ×2 (17:38→22:01)
[2017-12-19] MEDS: THIAMINE HCL 100 MG TABLET (FP) PO SCH (22:01)
[2017-12-19] MEDS ORDERED: chlordiazePOXIDE HCL 10 MG CAPSULE PO SCH (23:00)
[2017-12-20] MEDS: chlordiazePOXIDE HCL 10 MG CAPSULE PO SCH (05:10)
[2017-12-20 06:04] VITALS: BP 107/73; PULSE 59; TEMP 97.2
--- NOTE | 2017-12-20 08:39 | DS ---
[facility] Detox Discharge Summary Admission Date: 12/16/17 Discharge Date: 12/20/17 - History Present History: Alcohol Dependence Additional Comments: 47 years old male admitted 12/16/17 for alcohol withdrawal sx completed alcohol detox regimen tolerated well denies alcohol withdrawal sx alert oriented x 3 no acute distress aftercare [facility] recovery - Physical Exam Results Vital Signs: Vital Signs Temperature 97.2 F L 12/20/17 06:00 Pulse Rate 59 L 12/20/17 06:00 Respiratory Rate 18 12/20/17 06:00 Blood Pressure 107/73 12/20/17 06:00 O2 Sat by Pulse Oximetry (%) Pertinent Admission Physical Exam Findings: withdrawal sx Vital Signs Temperature 97.2 F L 12/20/17 06:00 Pulse Rate 59 L 12/20/17 06:00 Respiratory Rate 18 12/20/17 06:00 Blood Pressure 107/73 12/20/17 06:00 O2 Sat by Pulse Oximetry (%) Laboratory Last Values WBC 5.9 K/mm3 (4.0-10.0) 12/17/17 05:30 RBC 4.17 M/mm3 (4.00-5.60) 12/17/17 05:30 Hgb 13.7 GM/dL (11.7-16.9) 12/17/17 05:30 Hct 41.2 % (35.4-49) 12/17/17 05:30 MCV 98.7 fl (80-96) H 12/17/17 05:30 MCH 32.9 pg (25.7-33.7) 12/17/17 05:30 MCHC 33.3 g/dl (32.0-35.9) 12/17/17 05:30 RDW 14.4 % (11.9-15.9) 12/17/17 05:30 Plt Count 217 K/MM3 (134-434) 12/17/17 05:30 MPV 9.1 fl (7.5-11.1) 12/17/17 05:30 Sodium 144 mmol/L (136-145) 12/17/17 05:30 Potassium 4.7 mmol/L (3.5-5.1) D 12/17/17 05:30 Chloride 109 mmol/L (98-107) H 12/17/17 05:30 Carbon Dioxide 28 mmol/L (21-32) 12/17/17 05:30 Anion Gap 7 (8-16) L 12/17/17 05:30 BUN 14 mg/dL (7-18) 12/17/17 05:30 Creatinine 1.4 mg/dL (0.7-1.3) H D 12/17/17 05:30 Creat Clearance w eGFR 54.09 (>60) 12/17/17 05:30 Random Glucose 69 mg/dL (74-106) L D 12/17/17 05:30 Calcium 9.1 mg/dL (8.5-10.1) 12/17/17 05:30 Total Bilirubin 1.1 mg/dL (0.2-1.0) H D 12/17/17 05:30 AST 26 U/L (15-37) D 12/17/17 05:30 ALT 20 U/L (12-78) 12/17/17 05:30 Alkaline Phosphatase 78 U/L (45-117) 12/17/17 05:30 Total Protein 6.5 g/dl (6.4-8.2) 12/17/17 05:30 Albumin 3.5 g/dl (3.4-5.0) 12/17/17 05:30 Urine Color Yellow 12/16/17 18:49 Urine Appearance Turbid 12/16/17 18:49 Urine pH 5.0 (5.0-8.0) 12/16/17 18:49 Ur Specific [place] 1.028 (1.001-1.035) 12/16/17 18:49 Urine Protein Negative (NEGATIVE) 12/16/17 18:49 Urine Glucose (UA) Negative (NEGATIVE) 12/16/17 18:49 Urine Ketones Negative (NEGATIVE) 12/16/17 18:49 Urine Blood 1+ (NEGATIVE) H 12/16/17 18:49 Urine Nitrite Negative (NEGATIVE) 12/16/17 18:49 Urine Bilirubin Negative (<2.0 mg/dL) 12/16/17 18:49 Urine Urobilinogen 2.0 mg/dL (0.2-1.0) 12/16/17 18:49 Ur Leukocyte Esterase Negative (NEGATIVE) 12/16/17 18:49 Urine WBC (Auto) None /hpf (3-5) 12/16/17 18:49 Urine RBC (Auto) 2 /hpf (0-3) 12/16/17 18:49 Urine Mucus Few 12/16/17 18:49 RPR Titer Nonreactive (NONREACTIVE) 12/17/17 05:30 Hep C Ab Diagnostic 0.1 s/co ratio (0.0-0.9) 12/17/17 05:30 Liver Fibrosis Interp (.) 12/17/17 05:30 HIV 1&2 Antibody Screen Negative 12/16/17 12:00 HIV P24 Antigen Negative 12/16/17 12:00 lab noted - Treatment Hospital Course: Detox Protocol Followed, Detoxed Safely, Responded well, Discharged Condition Good, Rehab Referral Accepted Patient has Accepted a Rehab Referral to: [facility] - Medication Discharge Medications: Ambulatory Orders NK [No Known Home Medication] 08/27/17 - Diagnosis (1) Alcohol dependence with uncomplicated withdrawal Status: Acute (2) Schizoaffective disorder Status: Suspected Qualifiers: Schizoaffective disorder type: unspecified Qualified Code(s): F25.9 - Schizoaffective disorder, unspecified (3) Weight loss Status: Acute - AMA Did Patient Leave Against Medical Advice: No
[2017-12-20] MEDS: CLOTRIMAZOLE 1% CREAM 15 GM TUBE TP SCH (09:47)
[2017-12-20] MEDS: BENZOCAINE 28 GM HEMORRHOIDAL OINTMENT PR SCH (09:47)
[2017-12-20] MEDS: PRENATAL VITAMINS W/ FOLIC ACID TABLET (FP) PO SCH (09:47)
== END 2017-12-20 09:50 | disposition home or self-care (01) | DRG 774 ==
LOC: YASAS 08:31 → Y6N 14:38
PROVIDERS: ADMIT Surgery; ATTEND Surgery
PROC: HZ2ZZZZ Detoxification Services for Substance Abuse Treatment (ICD-10-PCS; principal; 2017-12-16)
DX: F10.230 Alcohol dependence with withdrawal, uncomplicated (principal); F14.20 Cocaine dependence, uncomplicated; F17.210 Nicotine dependence, cigarettes, uncomplicated; F25.9 Schizoaffective disorder, unspecified; R63.4 Abnormal weight loss; Z68.26 Body mass index [BMI] 26.0-26.9, adult; K64.8 Other hemorrhoids; Z91.14 Patient's other noncompliance with medication regimen
CPT/HCPCS: 36415; 80053; 81003; 81015; 85027; 86593; 87389; 93005; 93010

== ENCOUNTER 2018-09-08 15:27 | Inpatient (IN) | payer OTHER ==
[2018-09-08 15:55] VITALS: BMI 27.6
--- NOTE | 2018-09-08 21:59 | HP ---
CIWA Score Nausea/Vomitin (x 2) Muscle Tremors: 3 Anxiety: 2 Agitation: 2 Paroxysmal Sweats: 2 Orientation: 2-Disoriented Date<2 days Tacttile Disturbances: 0-None Auditory Disturbances: 0-None Visual Disturbances: 0-None Headache: 3-Moderate CIWA-Ar Total Score: 17 - Admission Criteria [facility] Guidelines: Admission for Medically Managed Detox: Requires at least one of the followin. CIWA greater than 12 2. Seizures within the past 24 hours 3. Delirium tremens within the past 24 hours 4. Hallucinations within the past 24 hours 5. Acute intervention needed for co occurring medical disorder 6. Acute intervention needed for co occurring psychiatric disorder 7. Severe withdrawal that cannot be handled at a lower level of care (continued vomiting, continued diarrhea, abnormal vital signs) requiring intravenous medication and/or fluids 8. 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 Patient's drug screen was positive for only cocaine and he reports use of heroin about 2 days ago. He has been in previous detox, last in November 2017. He reports history of depression, low back pain and anxiety. He denies suicide attempt and suicidal ideation at this time. Exam Limitations: No Limitations - Ebola screening Have you traveled outside of the country in the last 21 days: No Have you had contact with anyone from an Ebola affected area: No Have you been sick,other than usual withdrawal symptoms: No Do you have a fever: No - Review of Systems Constitutional: Chills, Loss of Appetite, Night Sweats, Changes in sleep EENT: reports: Nose Congestion Respiratory: reports: No Symptoms reported Cardiac: reports: No Symptoms Reported GI: reports: Diarrhea (x 4), Nausea, Poor Appetite, Poor Fluid Intake, Abdominal cramping : reports: No Symptoms Reported Musculoskeletal: reports: Back Pain, Muscle Pain Integumentary: reports: Dryness, Flushing Neuro: reports: Tremors Endocrine: reports: No Symptoms Reported Hematology: reports: No Symptoms Reported Psychiatric: reports: Anxious, Depressed Other Systems: Reviewed and Negative Patient History - Patient Medical History Hx Anemia: No Hx Asthma: No Hx Chronic Obstructive Pulmonary Disease (COPD): No Hx Cancer: No Hx Cardiac Disorders: No Hx Congestive Heart Failure: No Hx Hypertension: No Hx Hypercholesterolemia: No Hx Pacemaker: No HX Cerebrovascular Accident: No Hx Seizures: No Hx Dementia: No Hx Diabetes: No Hx Gastrointestinal Disorders: No Hx Liver Disease: No Hx Genitourinary Disorders: No Hx Sexually Transmitted Disorders: No Hx Renal Disease (ESRD): No Hx Thyroid Disease: No Hx Human Immunodeficiency Virus (HIV): No (LAST 06/10 NEGATIVE) Hx Hepatitis C: No Hx Depression: Yes (Not on medication) Hx Suicide Attempt: No Hx Bipolar Disorder: No Hx Schizophrenia: No Other Medical History: Anxiety - Not on medication - Patient Surgical History Past Surgical History: No - PPD History Previous Implant?: Yes Documented Results: Negative w/proof Implanted On Prior [facility] Admission?: Yes Date: 06/10/17 PPD to be Administered?: Yes - Reproductive History Patient is a Female of Child Bearing Age (11 -55 yrs old): No (male) - Smoking Cessation Smoking history: Current every day smoker Have you smoked in the past 12 months: Yes Aproximately how many cigarettes per day: 10 Cigars Per Day: 0 Hx Chewing Tobacco Use: No Initiated information on smoking cessation: Yes 'Breaking Loose' booklet given: 09/08/18 - Substance & Tx. History Hx Alcohol Use: Yes Hx Substance Use: Yes Substance Use Type: Alcohol, Cocaine Hx Substance Use Treatment: Yes ([facility]) - Substances Abused Alcohol Route: Oral Frequency: Daily Amount used: VODKA - 5 PINTS Age of first use: 17 Date of Last Use: 09/08/18 Family Disease History - Family Disease History Family Disease History: Diabetes: Father (ALCOHOL,), Other: Father Admission Physical Exam S - Vital Signs Vital Signs: Vital Signs - 24 hr 09/08/18 15:53 Temperature 97.8 F Pulse Rate 75 Respiratory 20 Rate Blood Pressure 121/87 - Physical General Appearance: Yes: Moderate Distress, Tremorous, Irritable, Sweating, Anxious HEENTM: Yes: EOMI, Normal ENT Inspection, Normocephalic, Normal Voice, EMMANUEL Respiratory: Yes: Lungs Clear, Normal Breath Sounds Neck: Yes: Supple Breast: Yes: Breast Exam Deferred Cardiology: Yes: Regular Rhythm, Regular Rate Abdominal: Yes: Normal Bowel Sounds, Soft Genitourinary: Yes: Within Normal Limits Back: Yes: Normal Inspection Musculoskeletal: Yes: Back pain, Muscle Pain Extremities: Yes: Tremors Neurological: Yes: health care assistant II-XII NML intact, Alert, Normal Mood/Affect Integumentary: Yes: Warm Lymphatic: Yes: Within Normal Limits - Diagnostic (1) Anxiety Current Visit: Yes Status: Chronic (2) Depression Current Visit: Yes Status: Chronic Qualifiers: Depression Type: unspecified Qualified Code(s): F32.9 - Major depressive disorder, single episode, unspecified (3) Alcohol dependence with uncomplicated withdrawal Current Visit: Yes Status: Chronic (4) Cocaine dependence Current Visit: Yes Status: Chronic Qualifiers: Substance use status: uncomplicated Qualified Code(s): F14.20 - Cocaine dependence, uncomplicated (5) Low back pain Current Visit: Yes Status: Chronic Qualifiers: Chronicity: unspecified Back pain laterality: unspecified Sciatica presence: unspecified whether sciatica present Qualified Code(s): M54.5 - Low back pain (6) Nicotine dependence Current Visit: Yes Status: Chronic Qualifiers: Nicotine product type: cigarettes Substance use status: uncomplicated Qualified Code(s): F17.210 - Nicotine dependence, cigarettes, uncomplicated Cleared for Admission [facility] - Detox or Rehab [facility] Level of Care: Medically Managed Detox Regimen/Protocol: Librium [facility] Breath Alcohol Content Breath Alcohol Content: 0.020 Urine Drug Screen - Results Drug Screen Negative: No Urine Drug Screen Results: ZOHRA-Cocaine Inpatient Rehab Admission - Rehab Decision to Admit Inpatient rehab admission?: No
[2018-09-08] MEDS ORDERED: LOPERAMIDE HCL 2 MG CAPSULE PO PRN (22:10)
[2018-09-08] MEDS ORDERED: guaiFENesin/D-METHORPHAN HB 10 ML UNIT-DOSE CUPS PO PRN (22:10)
[2018-09-08] MEDS ORDERED: P-EPHED 60MG/TRIPROLIDI 2.5MG TABLET PO PRN (22:10)
[2018-09-08] MEDS ORDERED: IBUPROFEN 400 MG TABLET (FP) PO PRN (22:10)
[2018-09-08] MEDS ORDERED: ACETAMINOPHEN 325 MG TABLET (FP) PO PRN (22:10)
[2018-09-08] MEDS ORDERED: MENTHOL/PHENOL 1 EACH UD MM PRN (22:10)
[2018-09-08] MEDS ORDERED: MAG HYDROX/AL HYDROX/SIMETH 30 ML UNIT-DOSE CUP PO PRN (22:10)
[2018-09-08] MEDS ORDERED: chlordiazePOXIDE HCL 25 MG CAPSULE PO PRN (22:10)
[2018-09-08] MEDS ORDERED: MAGNESIUM HYDROX 2400MG/30ML ORAL SUSPENSION 30 ML CUP PO PRN (22:10)
[2018-09-08] MEDS ORDERED: MAGNESIUM CITRATE 300 ML BOTTLE PO PRN (22:10)
[2018-09-08] MEDS ORDERED: NICOTINE POLACRILEX 2 MG GUM BC PRN (22:10)
[2018-09-09] MEDS: chlordiazePOXIDE HCL 25 MG CAPSULE PO SCH ×5 (01:03→22:11)
[2018-09-09] MEDS: PRENATAL VITAMINS W/ FOLIC ACID TABLET (FP) PO SCH (10:36)
[2018-09-09] MEDS: NICOTINE 14 MG/24 HOURS TOPICAL PATCH TD SCH (10:36)
[2018-09-09 11:19] LABS: ALBUMIN 2.9 g/dl (3.4-5.0); ALK PHOS 111 U/L (45-117); ANION GAP 4 MMOL/L (8-16); BILIRUBIN,TOTAL 0.4 mg/dL (0.2-1); BLOOD UREA NITROGEN 14 mg/dL (7-18); CHLORIDE 111 mmol/L (98-107); CO2 30 mmol/L (21-32); CREATININE 1.4 mg/dL (0.55-1.3); GLUCOSE,RANDOM 98 mg/dL (74-106); POTASSIUM 3.7 mmol/L (3.5-5.1); SGOT/AST 26 U/L (15-37); SGPT/ALT 25 U/L (13-61); SODIUM 144 mmol/L (136-145); TOT PROT 5.5 g/dl (6.4-8.2)
[2018-09-09 11:34] LABS: HEMATOCRIT 38.8 % (35.4-49); HEMOGLOBIN 13.5 GM/dL (11.7-16.9); MCH 33.9 pg (25.7-33.7); MCHC 34.7 g/dl (32.0-35.9); MEAN CELL VOLUME 97.6 fl (80-96); MEAN PLT VOLUME 8.3 fl (7.5-11.1); PLATELET COUNT 197 K/MM3 (134-434); RBC 3.97 M/mm3 (4.00-5.60); RDW 13.9 % (11.9-15.9); WHITE BLOOD COUNT 5.1 K/mm3 (4.0-10.0)
--- NOTE | 2018-09-09 13:54 | PN ---
S CIWA - CIWA Score Nausea/Vomitin-Mild Nausea/No Vomiting Muscle Tremors: 2 Anxiety: 1-Mildly Anxious Agitation: 1-Slight > Activity Paroxysmal Sweats: 1-Minimal Palms Moist Orientation: 0-Oriented Tacttile Disturbances: 0-None Auditory Disturbances: 0-None Visual Disturbances: 0-None Headache: 1-Very Mild CIWA-Ar Total Score: 7 BHS Progress Note (SOAP) Subjective: pt admitted yesterday, says doing fine overall, here for alcohol detox, klonopin use O: Vital Signs - 24 hr 09/08/18 09/09/18 09/09/18 15:53 00:32 03:30 Temperature 97.8 F 98.8 F Pulse Rate 75 84 Respiratory 20 18 18 Rate Blood Pressure 121/87 120/58 L 09/09/18 09/09/18 09/09/18 08:49 09:48 13:47 Temperature 98.1 F 98 F 97.2 F L Pulse Rate 77 66 62 Respiratory 18 18 18 Rate Blood Pressure 130/94 142/75 125/80 Laboratory Tests 09/09/18 09/09/18 09/09/18 07:45 07:45 07:45 WBC 5.1 RBC 3.97 L Hgb 13.5 Hct 38.8 MCV 97.6 H MCH 33.9 H MCHC 34.7 RDW 13.9 Plt Count 197 MPV 8.3 Sodium 144 Potassium 3.7 Chloride 111 H Carbon Dioxide 30 Anion Gap 4 L BUN 14 Creatinine 1.4 H Creat Clearance w eGFR 53.86 Random Glucose 98 Calcium 8.0 L Total Bilirubin 0.4 AST 26 ALT 25 Alkaline Phosphatase 111 Total Protein 5.5 L Albumin 2.9 L RPR Titer Nonreactive a/p: continue detox protocol mild renal insufficiency f/u with [facility]
--- NOTE | 2018-09-09 15:46 | CONSULT ---
[facility] Psychiatric Consult - Data Date of interview: 09/09/18 Admission source: [facility] Identifying data: This is one of multiple admissions to [facility] for this 48 y/ o AA male self-referred for detoxification (alcohol, cocaine, benzodiazepine). Patient is , a father of three, undomiciled, unemployed and currently deprived of any source of income. Substance Abuse History: Confirmed by the patient in this interview. Details in current [facility] report : Smoking history: Current every day smoker. Have you smoked in the past 12 months: Yes. Aproximately how many cigarettes per day: 10. Cigars Per Day: 0. Hx Chewing Tobacco Use: No. Initiated information on smoking cessation: Yes. 'Breaking Loose' booklet given: 09/08/18. - Substance & Tx. History. Hx Alcohol Use: Yes. Hx Substance Use: Yes. Substance Use Type : Alcohol, Cocaine. Hx Substance Use Treatment: Yes ([facility]). - Substances Abused. Alcohol. Route: Oral. Frequency: Daily. Amount used: VODKA - 5 PINTS. Age of first use: 17. Date of Last Use: 09/08/18 Medical History: Chronic lumbar pain. Patient is, otherwise, claiming good general health. Psychiatric History: History of multiple psychiatric hospitalizations ([facility]). Patient is reportedly diagnosed with Schizophrenia. Mr Paulino states that he has stopped attending psychiatric OPD care for many months. Off medications. Patient denies history of suicide attempts. Physical/Sexual Abuse/Trauma History: Not discussed. Patient declines. Additional Comment: Urine Drug Screen Results: ZOHRA-Cocaine. Noted. Mental Status Exam - Mental Status Exam Alert and Oriented to: Time, Place, Person Cognitive Function: Grossly Intact Patient Appearance: Unkempt, Disheveled Mood: Nervous, Withdrawn, Irritable Affect: Mood Congruent, Constricted Patient Behavior: Fatigued, Cooperative (marginally cooperative) Speech Pattern: Clear Voice Loudness: Normal Thought Process: Goal Oriented Thought Disorder: Not Present Hallucinations: Denies Suicidal Ideation: Denies Homicidal Ideation: Denies Insight/Judgement: Poor Sleep: Well Appetite: Good Muscle strength/Tone: Normal Gait/Station: Normal (not observed. Supine for entire interview) Psychiatric Findings - Problem List ([place] 1, 2,3) (1) Alcohol dependence with uncomplicated withdrawal Current Visit: Yes Status: Acute (2) Cocaine dependence Current Visit: Yes Status: Chronic Qualifiers: Substance use status: uncomplicated Qualified Code(s): F14.20 - Cocaine dependence, uncomplicated (3) Nicotine dependence Current Visit: Yes Status: Chronic Qualifiers: Nicotine product type: cigarettes Substance use status: uncomplicated Qualified Code(s): F17.210 - Nicotine dependence, cigarettes, uncomplicated (4) Substance induced mood disorder Current Visit: Yes Status: Chronic - Initial Treatment Plan Initial Treatment Plan: Psychoeducation. Sleep hygiene. Detoxification. Observation.
[2018-09-09] MEDS: THIAMINE HCL 100 MG TABLET (FP) PO SCH (22:09)
[2018-09-10] MEDS: MELATONIN 5 MG TABLETS PO PRN (02:09)
[2018-09-10] MEDS: chlordiazePOXIDE HCL 25 MG CAPSULE PO SCH ×3 (05:45→17:40)
[2018-09-10] MEDS: PRENATAL VITAMINS W/ FOLIC ACID TABLET (FP) PO SCH (10:11)
[2018-09-10] MEDS: NICOTINE 14 MG/24 HOURS TOPICAL PATCH TD SCH (10:12)
--- NOTE | 2018-09-10 13:39 | PN ---
S CIWA - CIWA Score Nausea/Vomitin-No Nausea/No Vomiting Muscle Tremors: None Anxiety: 4-Mod. Anxious/Guarded Agitation: 4-Moderately Restless Paroxysmal Sweats: No Perspiration Orientation: 0-Oriented Tacttile Disturbances: 0-None Auditory Disturbances: 0-None Visual Disturbances: 0-None Headache: 0-None Present CIWA-Ar Total Score: 8 BHS Progress Note (SOAP) Subjective: PATIENT ANXIOUS AND RESTLESS, PACING ON UNIT HALLWAY. Objective: 09/10/18 13:37 Vital Signs Temperature 98.2 F 09/10/18 09:39 Pulse Rate 67 09/10/18 09:39 Respiratory Rate 18 09/10/18 09:39 Blood Pressure 128/93 09/10/18 09:39 O2 Sat by Pulse Oximetry (%) Vital Signs Temperature 98.2 F 09/10/18 09:39 Pulse Rate 67 09/10/18 09:39 Respiratory Rate 18 09/10/18 09:39 Blood Pressure 128/93 09/10/18 09:39 O2 Sat by Pulse Oximetry (%) Laboratory Tests 09/09/18 09/09/18 09/09/18 07:45 07:45 07:45 WBC 5.1 RBC 3.97 L Hgb 13.5 Hct 38.8 MCV 97.6 H MCH 33.9 H MCHC 34.7 RDW 13.9 Plt Count 197 MPV 8.3 Sodium 144 Potassium 3.7 Chloride 111 H Carbon Dioxide 30 Anion Gap 4 L BUN 14 Creatinine 1.4 H Creat Clearance w eGFR 53.86 Random Glucose 98 Calcium 8.0 L Total Bilirubin 0.4 AST 26 ALT 25 Alkaline Phosphatase 111 Total Protein 5.5 L Albumin 2.9 L RPR Titer Nonreactive PE: ALERT AND ORIENTED X 3 SKIN WARM AND DRY EXT FULL ROM, NO TREMORS AMB AD YOVANI ANXIOUS/PACING IN HALLWAY Assessment: 09/10/18 13:38 WITHDRAWAL SX Plan: CONTINUE DETOX ENCOURAGE FLUIDS CONTINUE TO MONITOR
[2018-09-10] MEDS: THIAMINE HCL 100 MG TABLET (FP) PO SCH (22:10)
[2018-09-10] MEDS: chlordiazePOXIDE 5 MG CAPSULE PO SCH (22:10)
[2018-09-11] MEDS: chlordiazePOXIDE 5 MG CAPSULE PO SCH ×3 (05:40→17:20)
[2018-09-11] MEDS: NICOTINE 14 MG/24 HOURS TOPICAL PATCH TD SCH (10:11)
[2018-09-11] MEDS: PRENATAL VITAMINS W/ FOLIC ACID TABLET (FP) PO SCH (10:11)
--- NOTE | 2018-09-11 10:44 | PN ---
BHS Progress Note (SOAP) Subjective: sweats mild shakes Objective: 09/11/18 10:42 Vital Signs Temperature 97.5 F L 09/11/18 09:56 Pulse Rate 70 09/11/18 09:56 Respiratory Rate 17 09/11/18 09:56 Blood Pressure 147/95 09/11/18 09:56 O2 Sat by Pulse Oximetry (%) Laboratory Tests 09/09/18 09/09/18 09/09/18 07:45 07:45 07:45 WBC 5.1 RBC 3.97 L Hgb 13.5 Hct 38.8 MCV 97.6 H MCH 33.9 H MCHC 34.7 RDW 13.9 Plt Count 197 MPV 8.3 Sodium 144 Potassium 3.7 Chloride 111 H Carbon Dioxide 30 Anion Gap 4 L BUN 14 Creatinine 1.4 H Creat Clearance w eGFR 53.86 Random Glucose 98 Calcium 8.0 L Total Bilirubin 0.4 AST 26 ALT 25 Alkaline Phosphatase 111 Total Protein 5.5 L Albumin 2.9 L RPR Titer Nonreactive aaox3 ambulating no acute distress Assessment: 09/11/18 10:43 mild withdrawal sx Plan: continue detox increase fluids d/c in am
[2018-09-11] MEDS: THIAMINE HCL 100 MG TABLET (FP) PO SCH (22:25)
[2018-09-11] MEDS: chlordiazePOXIDE HCL 10 MG CAPSULE PO SCH (22:25)
[2018-09-12] MEDS: chlordiazePOXIDE HCL 10 MG CAPSULE PO SCH ×3 (05:47→17:31)
--- NOTE | 2018-09-12 08:56 | DS ---
[facility] Detox Discharge Summary Admission Date: 09/08/18 Discharge Date: 09/12/18 - History Present History: Alcohol Dependence, Cannabis Dependence, Cocaine Dependence, Sedative Dependence - Physical Exam Results Vital Signs: Vital Signs Temperature 97.9 F 09/12/18 06:00 Pulse Rate 73 09/12/18 06:00 Respiratory Rate 18 09/12/18 06:00 Blood Pressure 132/83 09/12/18 06:00 O2 Sat by Pulse Oximetry (%) - Treatment Hospital Course: Detox Protocol Followed, Detoxed Safely, Responded well, Discharged Condition Good, Rehab Referral Accepted - Medication Discharge Medications: Ambulatory Orders NK [No Known Home Medication] 08/27/17 - Diagnosis (1) Alcohol dependence with uncomplicated withdrawal Current Visit: Yes Status: Chronic (2) Anxiety Current Visit: Yes Status: Chronic (3) Cocaine dependence Current Visit: Yes Status: Chronic Qualifiers: Substance use status: uncomplicated Qualified Code(s): F14.20 - Cocaine dependence, uncomplicated (4) Depression Current Visit: Yes Status: Chronic Qualifiers: Depression Type: unspecified Qualified Code(s): F32.9 - Major depressive disorder, single episode, unspecified (5) Low back pain Current Visit: Yes Status: Chronic Qualifiers: Chronicity: unspecified Back pain laterality: unspecified Sciatica presence: unspecified whether sciatica present Qualified Code(s): M54.5 - Low back pain (6) Nicotine dependence Current Visit: Yes Status: Chronic Qualifiers: Nicotine product type: cigarettes Substance use status: uncomplicated Qualified Code(s): F17.210 - Nicotine dependence, cigarettes, uncomplicated (7) Substance induced mood disorder Current Visit: Yes Status: Chronic (8) Cannabis dependence Current Visit: No Status: Acute (9) Hemorrhoid Current Visit: No Status: Acute (10) Insomnia secondary to depression with anxiety Current Visit: No Status: Acute (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
[2018-09-12] MEDS: NICOTINE 14 MG/24 HOURS TOPICAL PATCH TD SCH (11:20)
[2018-09-12] MEDS: PRENATAL VITAMINS W/ FOLIC ACID TABLET (FP) PO SCH (11:20)
[2018-09-12] MEDS: THIAMINE HCL 100 MG TABLET (FP) PO SCH (22:12)
--- NOTE | 2018-09-13 09:08 | DS ---
[facility] Detox Discharge Summary Admission Date: 09/08/18 Discharge Date: 09/13/18 - History Present History: Alcohol Dependence, Cannabis Dependence, Sedative Dependence - Physical Exam Results Vital Signs: Vital Signs Temperature 97.5 F L 09/13/18 06:29 Pulse Rate 76 09/13/18 06:29 Respiratory Rate 18 09/13/18 06:29 Blood Pressure 143/93 09/13/18 06:29 O2 Sat by Pulse Oximetry (%) - Treatment Hospital Course: Detox Protocol Followed, Detoxed Safely, Responded well, Discharged Condition Good, Rehab Referral Accepted - Medication Discharge Medications: Ambulatory Orders NK [No Known Home Medication] 08/27/17 - Diagnosis (1) Alcohol dependence with uncomplicated withdrawal Current Visit: Yes Status: Chronic (2) Anxiety Current Visit: Yes Status: Chronic (3) Cocaine dependence Current Visit: Yes Status: Chronic Qualifiers: Substance use status: uncomplicated Qualified Code(s): F14.20 - Cocaine dependence, uncomplicated (4) Depression Current Visit: Yes Status: Chronic Qualifiers: Depression Type: unspecified Qualified Code(s): F32.9 - Major depressive disorder, single episode, unspecified (5) Low back pain Current Visit: Yes Status: Chronic Qualifiers: Chronicity: unspecified Back pain laterality: unspecified Sciatica presence: unspecified whether sciatica present Qualified Code(s): M54.5 - Low back pain (6) Nicotine dependence Current Visit: Yes Status: Chronic Qualifiers: Nicotine product type: cigarettes Substance use status: uncomplicated Qualified Code(s): F17.210 - Nicotine dependence, cigarettes, uncomplicated (7) Substance induced mood disorder Current Visit: Yes Status: Chronic (8) Cannabis dependence Current Visit: Yes Status: Chronic (9) Hemorrhoid Current Visit: Yes Status: Chronic Qualifiers: Hemorrhoid type: unspecified Qualified Code(s): K64.9 - Unspecified hemorrhoids (10) Insomnia secondary to depression with anxiety Current Visit: No Status: Acute (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
[2018-09-13] MEDS: PRENATAL VITAMINS W/ FOLIC ACID TABLET (FP) PO SCH (10:29)
[2018-09-13] MEDS: NICOTINE 14 MG/24 HOURS TOPICAL PATCH TD SCH (10:30)
[2018-09-13] MEDS: THIAMINE HCL 100 MG TABLET (FP) PO SCH (22:18)
[2018-09-13] MEDS: MELATONIN 5 MG TABLETS PO PRN (22:18)
--- NOTE | 2018-09-14 08:53 | DS ---
[facility] Detox Discharge Summary Admission Date: 09/08/18 Discharge Date: 09/14/18 - History Present History: Alcohol Dependence, Cannabis Dependence, Cocaine Dependence, Sedative Dependence - Physical Exam Results Vital Signs: Vital Signs Temperature 98.4 F 09/14/18 06:09 Pulse Rate 76 09/14/18 06:09 Respiratory Rate 18 09/14/18 06:09 Blood Pressure 119/86 09/14/18 06:09 O2 Sat by Pulse Oximetry (%) - Treatment Hospital Course: Detox Protocol Followed, Detoxed Safely, Responded well, Discharged Condition Good, Rehab Referral Accepted - Medication Discharge Medications: Ambulatory Orders NK [No Known Home Medication] 08/27/17 - Diagnosis (1) Alcohol dependence with uncomplicated withdrawal Current Visit: Yes Status: Chronic (2) Anxiety Current Visit: Yes Status: Chronic (3) Cocaine dependence Current Visit: Yes Status: Chronic Qualifiers: Substance use status: uncomplicated Qualified Code(s): F14.20 - Cocaine dependence, uncomplicated (4) Depression Current Visit: Yes Status: Chronic Qualifiers: Depression Type: unspecified Qualified Code(s): F32.9 - Major depressive disorder, single episode, unspecified (5) Low back pain Current Visit: Yes Status: Chronic Qualifiers: Chronicity: unspecified Back pain laterality: unspecified Sciatica presence: unspecified whether sciatica present Qualified Code(s): M54.5 - Low back pain (6) Nicotine dependence Current Visit: Yes Status: Chronic Qualifiers: Nicotine product type: cigarettes Substance use status: uncomplicated Qualified Code(s): F17.210 - Nicotine dependence, cigarettes, uncomplicated (7) Substance induced mood disorder Current Visit: Yes Status: Chronic (8) Cannabis dependence Current Visit: Yes Status: Chronic (9) Hemorrhoid Current Visit: Yes Status: Chronic Qualifiers: Hemorrhoid type: unspecified Qualified Code(s): K64.9 - Unspecified hemorrhoids (10) Insomnia secondary to depression with anxiety Current Visit: No Status: Acute (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
[2018-09-14 09:30] VITALS: BP 136/89; PULSE 78; TEMP 98.2
[2018-09-14] MEDS: PRENATAL VITAMINS W/ FOLIC ACID TABLET (FP) PO SCH (10:05)
[2018-09-14] MEDS: NICOTINE 14 MG/24 HOURS TOPICAL PATCH TD SCH (10:05)
== END 2018-09-14 11:40 | disposition other institution (70) | DRG 774 ==
LOC: YASAS 15:27 → Y6N 23:00
PROVIDERS: ADMIT Surgery; ATTEND Surgery
PROC: HZ2ZZZZ Detoxification Services for Substance Abuse Treatment (ICD-10-PCS; principal; 2018-09-09)
DX: F10.230 Alcohol dependence with withdrawal, uncomplicated (principal); F14.20 Cocaine dependence, uncomplicated; F17.210 Nicotine dependence, cigarettes, uncomplicated; F51.05 Insomnia due to other mental disorder; F25.9 Schizoaffective disorder, unspecified; F41.9 Anxiety disorder, unspecified; F32.9 Major depressive disorder, single episode, unspecified; F19.24 Other psychoactive substance dependence with psychoactive substance-induced mood disorder; M54.5 Low back pain; K64.9 Unspecified hemorrhoids; N28.9 Disorder of kidney and ureter, unspecified
CPT/HCPCS: 36415; 80053; 85027; 86593; 87389

== ENCOUNTER 2018-09-14 12:00 | Inpatient (IN) | payer OTHER ==
--- NOTE | 2018-09-12 14:21 | HP ---
[facility] Rehab Assess/Revision - Admission History Admitted to Rehab from[facility] - Findings Detox History & Physical reviewed: Yes Concur with findings: Yes Inpatient Rehab Admission - Rehab Decision to Admit Inpatient rehab admission?: Yes - Initial Determination Are CD services needed?: Yes Free of communicable disease: Yes Not in need of hospitalization: Yes - Rehab Admission Criteria Previous failed treatment: Yes Poor recovery environment: Yes Comorbidities: Yes Lacks judgement: Yes Patient is meeting Inpatient Rehab admission criteria:: Yes
[~2018-09-14 12:00] MED LIST: ACETAMINOPHEN 325 MG TABLET (FP) PO PRN; IBUPROFEN 400 MG TABLET (FP) PO PRN; LOPERAMIDE HCL 2 MG CAPSULE PO PRN; MAG HYDROX/AL HYDROX/SIMETH 30 ML UNIT-DOSE CUP PO PRN; MAGNESIUM CITRATE 300 ML BOTTLE PO PRN; MAGNESIUM HYDROX 2400MG/30ML ORAL SUSPENSION 30 ML CUP PO PRN; MELATONIN 5 MG TABLETS PO PRN; MENTHOL/PHENOL 1 EACH UD MM PRN; NICOTINE 21 MG/24 HOURS TOPICAL PATCH TD SCH; NICOTINE POLACRILEX 4 MG GUM BUC PRN; P-EPHED 60MG/TRIPROLIDI 2.5MG TABLET PO PRN; PRENATAL VITAMINS W/ FOLIC ACID TABLET (FP) PO SCH; THIAMINE HCL 100 MG TABLET (FP) PO SCH; guaiFENesin/D-METHORPHAN HB 10 ML UNIT-DOSE CUPS PO PRN; hydrOXYzine PAMOATE 50 MG CAPSULE (FP) PO PRN
[2018-09-14] MEDS: PRENATAL VITAMINS W/ FOLIC ACID TABLET (FP) PO SCH (13:05)
[2018-09-14] MEDS: NICOTINE 21 MG/24 HOURS TOPICAL PATCH TD SCH (13:05)
[2018-09-14] MEDS: THIAMINE HCL 100 MG TABLET (FP) PO SCH ×2 (14:24→21:27)
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
[2018-09-15 07:02] VITALS: PULSE 65
[2018-09-15] MEDS: PRENATAL VITAMINS W/ FOLIC ACID TABLET (FP) PO SCH (09:57)
[2018-09-15] MEDS: NICOTINE 21 MG/24 HOURS TOPICAL PATCH TD SCH (09:57)
[2018-09-15] MEDS: THIAMINE HCL 100 MG TABLET (FP) PO SCH (21:24)
[2018-09-15] MEDS ORDERED: SUVOREXANT 10 MG TABLET PO PRN (22:00)
[2018-09-16 07:17] VITALS: BP 128/73; TEMP 97.7
[2018-09-16] MEDS: PRENATAL VITAMINS W/ FOLIC ACID TABLET (FP) PO SCH (10:30)
[2018-09-16] MEDS: NICOTINE 21 MG/24 HOURS TOPICAL PATCH TD SCH (10:30)
--- NOTE | 2018-09-16 11:48 | PN ---
[facility] Progress Note Note: Patient discharged AMA despite attempts to meet his needs. He reports he has an appointment with his pain doctor on Tuesday and also needs to spanish moss picker his oxycodone that is up for renewal
== END 2018-09-16 12:40 | disposition left against medical advice (07) | DRG 770 ==
LOC: YASAS 12:00 → Y5N 12:03
PROVIDERS: ADMIT Neuromusculoskeletal Medicine & OMM; ATTEND Neuromusculoskeletal Medicine & OMM
PROC: HZ42ZZZ Group Counseling for Substance Abuse Treatment, Cognitive-Behavioral (ICD-10-PCS; principal; 2018-09-14)
DX: F10.20 Alcohol dependence, uncomplicated (principal); F14.20 Cocaine dependence, uncomplicated; F17.210 Nicotine dependence, cigarettes, uncomplicated; F25.9 Schizoaffective disorder, unspecified; F19.24 Other psychoactive substance dependence with psychoactive substance-induced mood disorder; F19.282 Other psychoactive substance dependence with psychoactive substance-induced sleep disorder; M54.5 Low back pain; G89.29 Other chronic pain

== ENCOUNTER 2019-01-22 09:55 | Inpatient (IN) | payer OTHER ==
[2019-01-22 11:07] VITALS: BMI 30.1
--- NOTE | 2019-01-22 12:28 | HP ---
CIWA Score Nausea/Vomitin-Mild Nausea/No Vomiting Muscle Tremors: 2 Anxiety: 4-Mod. Anxious/Guarded Agitation: 2 Paroxysmal Sweats: 1-Minimal Palms Moist Orientation: 0-Oriented Tacttile Disturbances: 0-None Auditory Disturbances: 1-Very Mild Visual Disturbances: 0-None Headache: 2-Mild CIWA-Ar Total Score: 13 - Admission Criteria OASAS Guidelines: Admission for Medically Managed Detox: Requires at least one of the followin. CIWA greater than 12 2. Seizures within the past 24 hours 3. Delirium tremens within the past 24 hours 4. Hallucinations within the past 24 hours 5. Acute intervention needed for co occurring medical disorder 6. Acute intervention needed for co occurring psychiatric disorder 7. Severe withdrawal that cannot be handled at a lower level of care (continued vomiting, continued diarrhea, abnormal vital signs) requiring intravenous medication and/or fluids 8. Admission [facility] Chief Complaint: Seeking detox from alcohol, xanax, cocaine, heroin Allergies/Adverse Reactions: Allergies Allergy/AdvReac Type Severity Reaction Status Date / Time No Known Allergies Allergy Verified 01/22/19 10:48 History of Present Illness: 48 y/o/m here seeking detox from alcohol, xanax, cocaine, and heroin. He states he is drinking everyday. He drinks a fifth of vodka and a 6 pack of beer a day. He states he requires a drink the morning. He reports having tremors everyday. He last had a black around December last year but denies any seizures. He is taking Xanax that he is getting off the street. He is taking 10 mg BID. He uses cocaine every other day and he uses Heroin every other day. He stays at [facility]. He was sober from 1999 to 2006 and he relapsed after his father . He states he came in today because he is "tired" and would like to get off the drugs. He denies any legal issues currently. He smokes half a pack of cigarettes a day. He states he has been on a suboxone program for 3 years. He goes to [facility] where he gets the suboxone strips every month. He denies taking the suboxone when he is using heroin. He states he last used the suboxone a week ago. He last picked up his suboxne prescription on 01/09/19 and received a 28 day supply of 84 pills. He is currently unemployed. Exam Limitations: No Limitations - Ebola screening Have you traveled outside of the country in the last 21 days: No Have you had contact with anyone from an Ebola affected area: No Do you have a fever: No - Review of Systems Constitutional: Chills, Weakness EENT: reports: Blurred Vision, Nose Congestion Respiratory: denies: Cough, Shortness of Breath, Wheezing Cardiac: reports: No Symptoms Reported. denies: Chest Pain GI: reports: No Symptoms Reported. denies: Abdominal Distended, Nausea, Vomiting : reports: No Symptoms Reported Musculoskeletal: reports: No Symptoms Reported Integumentary: reports: No Symptoms Reported Neuro: reports: No Symptoms reported Endocrine: reports: Excessive Sweating (intermittent) Hematology: reports: No Symptoms Reported Psychiatric: reports: Anxious Patient History - Patient Medical History Hx Anemia: No Hx Asthma: No Hx Chronic Obstructive Pulmonary Disease (COPD): No Hx Cancer: No Hx Cardiac Disorders: No Hx Congestive Heart Failure: No Hx Hypertension: No Hx Hypercholesterolemia: No Hx Pacemaker: No HX Cerebrovascular Accident: No Hx Seizures: No Hx Dementia: No Hx Diabetes: No Hx Gastrointestinal Disorders: No Hx Liver Disease: No Hx Genitourinary Disorders: No Hx Sexually Transmitted Disorders: No Hx Renal Disease (ESRD): No Hx Thyroid Disease: No Hx Human Immunodeficiency Virus (HIV): No (LAST 06/10 NEGATIVE) Hx Hepatitis C: No Hx Depression: Yes Hx Suicide Attempt: No Hx Bipolar Disorder: No Hx Schizophrenia: Yes Other Medical History: no suicidal or homicidal ideations - Patient Surgical History Past Surgical History: No Hx Neurologic Surgery: No Hx Cataract Extraction: No Hx Cardiac Surgery: No Hx Lung Surgery: No Hx Breast Surgery: No Hx Breast Biopsy: No Hx Abdominal Surgery: No Hx Appendectomy: No Hx Cholecystectomy: No Hx Genitourinary Surgery: No Hx Section: No Hx Orthopedic Surgery: No Anesthesia Reaction: No - PPD History Previous Implant?: Yes Documented Results: Negative w/o proof Date: 06/10/17 Results: 0mm - Smoking Cessation Smoking history: Current every day smoker Have you smoked in the past 12 months: Yes Aproximately how many cigarettes per day: 10 Cigars Per Day: 0 Hx Chewing Tobacco Use: No Initiated information on smoking cessation: Yes 'Breaking Loose' booklet given: 01/22/19 - Substance & Tx. History Hx Alcohol Use: Yes Hx Substance Use: Yes Substance Use Type: Alcohol, Cocaine, Heroin Hx Substance Use Treatment: Yes - Substances abused Alcohol Substance route: Oral Frequency: Daily Amount used: a fifth a day and a 6 pack of beer Age of first use: 17 Date of last use: 01/22/19 Alprazolam (Xanax) Substance route: Oral Frequency: Daily Amount used: 10mg/day Age of first use: 34 Date of last use: 01/19/19 Cocaine Substance route: Inhalation Frequency: Daily Amount used: 8 ball Age of first use: 19 Date of last use: 01/21/19 Heroin Substance route: Inhalation Frequency: Daily Amount used: 50-100usd Age of first use: 19 Date of last use: 01/19/19 Family Disease History - Family Disease History Family Disease History: Diabetes: Father (ALCOHOL,), Other: Father Admission Physical Exam S - Vital Signs Vital Signs: Vital Signs - 24 hr 01/22/19 01/22/19 10:52 11:37 Temperature 97.7 F 97.7 F Pulse Rate 78 78 Respiratory 20 20 Rate Blood Pressure 146/68 146/68 - Physical General Appearance: Yes: Within Normal Limits HEENTM: Yes: EOMI, Hearing grossly Normal Respiratory: Yes: Within Normal Limits, Lungs Clear, Normal Breath Sounds Neck: Yes: Within Normal Limits Cardiology: Yes: Regular Rhythm, Regular Rate, S1, S2 Abdominal: Yes: Within Normal Limits, Normal Bowel Sounds, Non Tender, Soft Back: Yes: Within Normal Limits Musculoskeletal: Yes: Within Normal Limits Extremities: Yes: Within Normal Limits, Normal Capillary Refill Neurological: Yes: Within Normal Limits, trackman II-XII NML intact, Fully Oriented, Alert, Motor Strength 5/5, Normal Mood/Affect, Finger to Nose. No: Numbness Integumentary: Yes: Normal Color, Dry Lymphatic: Yes: Within Normal Limits - Diagnostic (1) Cocaine abuse Current Visit: Yes Status: Acute (2) Heroin abuse Current Visit: Yes Status: Acute (3) Alcohol dependence with uncomplicated withdrawal Current Visit: No Status: Chronic (4) Anxiety Current Visit: No Status: Chronic (5) Nicotine dependence Current Visit: No Status: Chronic Qualifiers: Nicotine product type: cigarettes Substance use status: uncomplicated Qualified Code(s): F17.210 - Nicotine dependence, cigarettes, uncomplicated (6) Depression Current Visit: No Status: Chronic Qualifiers: Depression Type: unspecified Qualified Code(s): F32.9 - Major depressive disorder, single episode, unspecified (7) Schizoaffective disorder Current Visit: No Status: Chronic Qualifiers: Schizoaffective disorder type: unspecified Qualified Code(s): F25.9 - Schizoaffective disorder, unspecified Comment: As per existing records and self-report.Chronic non-adherence to OPD care and mood stabilizers. (8) Dehydration Current Visit: Yes Status: Acute (9) Encounter for monitoring Suboxone maintenance therapy Current Visit: Yes Status: Acute Cleared for Admission S - Detox or Rehab S Level of Care: Medically Managed Detox Regimen/Protocol: Librium Breathalyzer - Breathalyzer Breathalyzer: 0.028 Urine Drug Screen - Test Device Lot number: [id number] Expiration date: 09/21/20 - Control Is test valid?: Yes - Results Drug screen NEGATIVE: No Urine drug screen results: ZOHRA-Cocaine, MET-Methamphetamine Inpatient Rehab Admission - Rehab Decision to Admit Inpatient rehab admission?: No
[2019-01-22] MEDS ORDERED: ACETAMINOPHEN 325 MG TABLET (FP) PO PRN ×2 (13:24)
[2019-01-22] MEDS ORDERED: MAGNESIUM CITRATE 300 ML BOTTLE PO PRN (13:24)
[2019-01-22] MEDS ORDERED: MELATONIN 5 MG TABLETS PO PRN (13:24)
[2019-01-22] MEDS ORDERED: BISMUTH SUBSALICYLATE 262 MG/15 ML BTL PO PRN (13:24)
[2019-01-22] MEDS ORDERED: METHOCARBAMOL 500 MG TABLET PO PRN (13:24)
[2019-01-22] MEDS ORDERED: MAGNESIUM HYDROX 2400MG/30ML ORAL SUSPENSION 30 ML CUP PO PRN (13:24)
[2019-01-22] MEDS ORDERED: MAG HYDROX/AL HYDROX/SIMETH 30 ML UNIT-DOSE CUP PO PRN (13:24)
[2019-01-22] MEDS ORDERED: MENTHOL/PHENOL 1 EACH UD MM PRN (13:24)
[2019-01-22] MEDS ORDERED: IBUPROFEN 400 MG TABLET (FP) PO PRN (13:24)
[2019-01-22] MEDS ORDERED: hydrOXYzine PAMOATE 25 MG CAPSULE (FP) PO PRN (13:24)
[2019-01-22] MEDS ORDERED: chlordiazePOXIDE HCL 25 MG CAPSULE PO PRN (13:24)
--- NOTE | 2019-01-22 14:05 | PN ---
[facility] Progress Note Note: this 48 years old male with alcohol,cocaine,xanax dependence with heroin abused, suboxone maintenance, seeking detox patient will need inpatient detox,medically manage,librium regimen i personally present and review the history,physical examination and plan of treatment with Dr Mk Ramos i agreed and concurred with his plan of treatment and findings
[2019-01-22] MEDS: chlordiazePOXIDE HCL 25 MG CAPSULE PO SCH ×2 (18:00→22:30)
[2019-01-22 18:12] LABS: HEMATOCRIT 43.6 % (35.4-49); HEMOGLOBIN 14.7 GM/dL (11.7-16.9); MCH 32.4 pg (25.7-33.7); MCHC 33.7 g/dl (32.0-35.9); MEAN CELL VOLUME 96.1 fl (80-96); MEAN PLT VOLUME 8.8 fl (7.5-11.1); PLATELET COUNT 220 K/MM3 (134-434); RBC 4.54 M/mm3 (4.00-5.60); RDW 14.8 % (11.9-15.9); WHITE BLOOD COUNT 5.8 K/mm3 (4.0-10.0)
[2019-01-22 18:18] LABS: URINE APPEARANCE CLEAR; URINE BILIRUBIN NEGATIVE (NEGATIVE); URINE COLOR YELLOW; URINE GLUCOSE (UA) NEGATIVE (NEGATIVE); URINE KETONE NEGATIVE (NEGATIVE); URINE LEUK ESTERASE NEGATIVE (NEGATIVE); URINE NITRITE NEGATIVE (NEGATIVE); URINE PROTEIN NEGATIVE (NEGATIVE); URINE UROBILINOGEN 0.2 mg/dL (0.2-1.0)
[2019-01-22 18:20] LABS: ALBUMIN 3.8 g/dl (3.4-5.0); BILIRUBIN,TOTAL 0.6 mg/dL (0.2-1); BLOOD UREA NITROGEN 27.5 mg/dL (7-18); CALCIUM 9.3 mg/dL (8.5-10.1); CREATININE 1.8 mg/dL (0.55-1.3); POTASSIUM 3.6 mmol/L (3.5-5.1); TOT PROT 7.1 g/dl (6.4-8.2)
[2019-01-22] MEDS: BUPRENORPHINE/NALOXONE 8 MG/2 MG FILM PACKET SL SCH (22:30)
[2019-01-22] MEDS: THIAMINE HCL 100 MG TABLET (FP) PO SCH (22:30)
[2019-01-23] MEDS: chlordiazePOXIDE HCL 25 MG CAPSULE PO SCH ×4 (06:27→22:08)
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
[2019-01-23] MEDS: PRENATAL VITAMINS W/ FOLIC ACID TABLET (FP) PO SCH (10:29)
[2019-01-23] MEDS: BUPRENORPHINE/NALOXONE 8 MG/2 MG FILM PACKET SL SCH ×2 (10:29→22:08)
--- NOTE | 2019-01-23 10:41 | PN ---
S CIWA - CIWA Score Nausea/Vomitin Muscle Tremors: 2 Anxiety: 2 Agitation: 2 Paroxysmal Sweats: 1-Minimal Palms Moist Orientation: 0-Oriented Tacttile Disturbances: 0-None Auditory Disturbances: 0-None Visual Disturbances: 0-None Headache: 2-Mild CIWA-Ar Total Score: 11 S Progress Note (SOAP) Subjective: alert,irritable,anxious,interrupted sleep,tremor,pain in the body Objective: 01/23/19 10:38 Vital Signs Temperature 97.0 F L 01/23/19 09:18 Pulse Rate 67 01/23/19 09:18 Respiratory Rate 17 01/23/19 09:18 Blood Pressure 105/62 01/23/19 09:18 O2 Sat by Pulse Oximetry (%) 01/23/19 10:38 Laboratory Last Values WBC 5.8 K/mm3 (4.0-10.0) 01/22/19 13:30 RBC 4.54 M/mm3 (4.00-5.60) 01/22/19 13:30 Hgb 14.7 GM/dL (11.7-16.9) 01/22/19 13:30 Hct 43.6 % (35.4-49) 01/22/19 13:30 MCV 96.1 fl (80-96) H 01/22/19 13:30 MCH 32.4 pg (25.7-33.7) 01/22/19 13:30 MCHC 33.7 g/dl (32.0-35.9) 01/22/19 13:30 RDW 14.8 % (11.9-15.9) 01/22/19 13:30 Plt Count 220 K/MM3 (134-434) 01/22/19 13:30 MPV 8.8 fl (7.5-11.1) 01/22/19 13:30 Sodium 145 mmol/L (136-145) 01/22/19 13:30 Potassium 3.6 mmol/L (3.5-5.1) 01/22/19 13:30 Chloride 106 mmol/L (98-107) 01/22/19 13:30 Carbon Dioxide 30 mmol/L (21-32) 01/22/19 13:30 Anion Gap 9 MMOL/L (8-16) 01/22/19 13:30 BUN 27.5 mg/dL (7-18) H 01/22/19 13:30 Creatinine 1.8 mg/dL (0.55-1.3) H 01/22/19 13:30 Est GFR (CKD-EPI)AfAm 50.10 01/22/19 13:30 Est GFR (CKD-EPI)NonAf 43.23 01/22/19 13:30 Random Glucose 78 mg/dL (74-106) 01/22/19 13:30 Calcium 9.3 mg/dL (8.5-10.1) 01/22/19 13:30 Total Bilirubin 0.6 mg/dL (0.2-1) 01/22/19 13:30 AST 34 U/L (15-37) 01/22/19 13:30 ALT 29 U/L (13-61) 01/22/19 13:30 Alkaline Phosphatase 113 U/L (45-117) 01/22/19 13:30 Total Protein 7.1 g/dl (6.4-8.2) 01/22/19 13:30 Albumin 3.8 g/dl (3.4-5.0) 01/22/19 13:30 Urine Color Yellow 01/22/19 14:30 Urine Appearance Clear 01/22/19 14:30 Urine pH 5.0 (5.0-8.0) 01/22/19 14:30 Ur Specific [place] 1.019 (1.010-1.035) 01/22/19 14:30 Urine Protein Negative (NEGATIVE) 01/22/19 14:30 Urine Glucose (UA) Negative (NEGATIVE) 01/22/19 14:30 Urine Ketones Negative (NEGATIVE) 01/22/19 14:30 Urine Blood Negative (NEGATIVE) 01/22/19 14:30 Urine Nitrite Negative (NEGATIVE) 01/22/19 14:30 Urine Bilirubin Negative (NEGATIVE) 01/22/19 14:30 Urine Urobilinogen 0.2 mg/dL (0.2-1.0) 01/22/19 14:30 Ur Leukocyte Esterase Negative (NEGATIVE) 01/22/19 14:30 Assessment: 01/23/19 10:39 withdrawal symptom Plan: continue detox,hydration,bun 27,creatinine is 1.8,will repeat cmp in am
[2019-01-23] MEDS: buPROPion HCL 100 MG TABLET PO SCH (13:16)
[2019-01-23] MEDS: ARIPiprazole 5 MG TABLET (FP) PO SCH (13:16)
[2019-01-23] MEDS: THIAMINE HCL 100 MG TABLET (FP) PO SCH (22:08)
[2019-01-24] MEDS: chlordiazePOXIDE HCL 25 MG CAPSULE PO SCH ×4 (06:35→22:26)
[2019-01-24] MEDS: buPROPion HCL 100 MG TABLET PO SCH (09:56)
[2019-01-24] MEDS: PRENATAL VITAMINS W/ FOLIC ACID TABLET (FP) PO SCH (09:56)
[2019-01-24] MEDS: ARIPiprazole 5 MG TABLET (FP) PO SCH (09:56)
[2019-01-24] MEDS: BUPRENORPHINE/NALOXONE 8 MG/2 MG FILM PACKET SL SCH ×2 (09:57→22:25)
--- NOTE | 2019-01-24 10:03 | PN ---
S CIWA - CIWA Score Nausea/Vomitin-No Nausea/No Vomiting Muscle Tremors: 4-Moderate,w/Arms Extend Anxiety: 4-Mod. Anxious/Guarded Agitation: 3 Paroxysmal Sweats: 1-Minimal Palms Moist Orientation: 0-Oriented Tacttile Disturbances: 0-None Auditory Disturbances: 0-None Visual Disturbances: 0-None Headache: 0-None Present CIWA-Ar Total Score: 12 BHS Progress Note (SOAP) Subjective: ANXIETY,TREMORS IRRITABILITY. Objective: 01/24/19 10:03 Vital Signs - 24 hr 01/23/19 01/23/19 01/23/19 12:54 17:00 22:02 Temperature 97.3 F L 97.7 F 97.9 F Pulse Rate 65 75 73 Respiratory 18 18 18 Rate Blood Pressure 115/76 108/69 100/69 01/24/19 01/24/19 01/24/19 00:30 07:38 09:22 Temperature 97.7 F 98.4 F Pulse Rate 68 75 Respiratory 18 18 18 Rate Blood Pressure 100/60 116/66 Laboratory Tests 01/22/19 01/22/19 01/22/19 13:30 13:30 13:30 WBC 5.8 RBC 4.54 Hgb 14.7 Hct 43.6 MCV 96.1 H MCH 32.4 MCHC 33.7 RDW 14.8 Plt Count 220 MPV 8.8 Sodium 145 Potassium 3.6 Chloride 106 Carbon Dioxide 30 Anion Gap 9 BUN 27.5 H Creatinine 1.8 H Est GFR (CKD-EPI)AfAm 50.10 Est GFR (CKD-EPI)NonAf 43.23 Random Glucose 78 Calcium 9.3 Total Bilirubin 0.6 AST 34 ALT 29 Alkaline Phosphatase 113 Total Protein 7.1 Albumin 3.8 Urine Color Urine Appearance Urine pH Ur Specific [place] Urine Protein Urine Glucose (UA) Urine Ketones Urine Blood Urine Nitrite Urine Bilirubin Urine Urobilinogen Ur Leukocyte Esterase RPR Titer Nonreactive HIV 1&2 Antibody Screen HIV P24 Antigen 01/22/19 01/22/19 13:30 14:30 WBC RBC Hgb Hct MCV MCH MCHC RDW Plt Count MPV Sodium Potassium Chloride Carbon Dioxide Anion Gap BUN Creatinine Est GFR (CKD-EPI)AfAm Est GFR (CKD-EPI)NonAf Random Glucose Calcium Total Bilirubin AST ALT Alkaline Phosphatase Total Protein Albumin Urine Color Yellow Urine Appearance Clear Urine pH 5.0 Ur Specific [place] 1.019 Urine Protein Negative Urine Glucose (UA) Negative Urine Ketones Negative Urine Blood Negative Urine Nitrite Negative Urine Bilirubin Negative Urine Urobilinogen 0.2 Ur Leukocyte Esterase Negative RPR Titer HIV 1&2 Antibody Screen Negative HIV P24 Antigen Negative Assessment: 01/24/19 10:03 WITHDRAWAL SX Plan: CONTINUE DETOX
[2019-01-24 10:19] LABS: ALBUMIN 3.3 g/dl (3.4-5.0); BILIRUBIN,TOTAL 0.7 mg/dL (0.2-1); CREATININE 1.2 mg/dL (0.55-1.3); POTASSIUM 4.2 mmol/L (3.5-5.1); TOT PROT 6.1 g/dl (6.4-8.2)
[2019-01-24] MEDS: THIAMINE HCL 100 MG TABLET (FP) PO SCH (22:25)
[2019-01-25] MEDS ORDERED: chlordiazePOXIDE HCL 10 MG CAPSULE PO PRN
[2019-01-25] MEDS: chlordiazePOXIDE HCL 10 MG CAPSULE PO SCH ×4 (06:05→23:12)
--- NOTE | 2019-01-25 08:33 | PN ---
S CIWA - CIWA Score Nausea/Vomitin-Mild Nausea/No Vomiting Muscle Tremors: 1-None Visible, but [place] Anxiety: 1-Mildly Anxious Agitation: 1-Slight > Activity Paroxysmal Sweats: No Perspiration Orientation: 0-Oriented Tacttile Disturbances: 0-None Auditory Disturbances: 0-None Visual Disturbances: 0-None Headache: 2-Mild CIWA-Ar Total Score: 6 BHS Progress Note (SOAP) Subjective: alert,irritable,anxious,interrupted sleep Objective: 01/25/19 08:31 Vital Signs Temperature 97.9 F 01/25/19 06:00 Pulse Rate 65 01/25/19 06:00 Respiratory Rate 18 01/25/19 06:00 Blood Pressure 110/74 01/25/19 06:00 O2 Sat by Pulse Oximetry (%) Assessment: 01/25/19 08:31 Laboratory Last Values WBC 5.8 K/mm3 (4.0-10.0) 01/22/19 13:30 RBC 4.54 M/mm3 (4.00-5.60) 01/22/19 13:30 Hgb 14.7 GM/dL (11.7-16.9) 01/22/19 13:30 Hct 43.6 % (35.4-49) 01/22/19 13:30 MCV 96.1 fl (80-96) H 01/22/19 13:30 MCH 32.4 pg (25.7-33.7) 01/22/19 13:30 MCHC 33.7 g/dl (32.0-35.9) 01/22/19 13:30 RDW 14.8 % (11.9-15.9) 01/22/19 13:30 Plt Count 220 K/MM3 (134-434) 01/22/19 13:30 MPV 8.8 fl (7.5-11.1) 01/22/19 13:30 Sodium 144 mmol/L (136-145) 01/24/19 07:50 Potassium 4.2 mmol/L (3.5-5.1) 01/24/19 07:50 Chloride 110 mmol/L (98-107) H 01/24/19 07:50 Carbon Dioxide 28 mmol/L (21-32) 01/24/19 07:50 Anion Gap 5 MMOL/L (8-16) L 01/24/19 07:50 BUN 21.0 mg/dL (7-18) H 01/24/19 07:50 Creatinine 1.2 mg/dL (0.55-1.3) 01/24/19 07:50 Est GFR (CKD-EPI)AfAm 81.80 01/24/19 07:50 Est GFR (CKD-EPI)NonAf 70.58 01/24/19 07:50 Random Glucose 76 mg/dL (74-106) 01/24/19 07:50 Calcium 9.0 mg/dL (8.5-10.1) 01/24/19 07:50 Total Bilirubin 0.7 mg/dL (0.2-1) 01/24/19 07:50 AST 28 U/L (15-37) 01/24/19 07:50 ALT 31 U/L (13-61) 01/24/19 07:50 Alkaline Phosphatase 117 U/L (45-117) 01/24/19 07:50 Total Protein 6.1 g/dl (6.4-8.2) L 01/24/19 07:50 Albumin 3.3 g/dl (3.4-5.0) L 01/24/19 07:50 Urine Color Yellow 01/22/19 14:30 Urine Appearance Clear 01/22/19 14:30 Urine pH 5.0 (5.0-8.0) 01/22/19 14:30 Ur Specific [place] 1.019 (1.010-1.035) 01/22/19 14:30 Urine Protein Negative (NEGATIVE) 01/22/19 14:30 Urine Glucose (UA) Negative (NEGATIVE) 01/22/19 14:30 Urine Ketones Negative (NEGATIVE) 01/22/19 14:30 Urine Blood Negative (NEGATIVE) 01/22/19 14:30 Urine Nitrite Negative (NEGATIVE) 01/22/19 14:30 Urine Bilirubin Negative (NEGATIVE) 01/22/19 14:30 Urine Urobilinogen 0.2 mg/dL (0.2-1.0) 01/22/19 14:30 Ur Leukocyte Esterase Negative (NEGATIVE) 01/22/19 14:30 RPR Titer Nonreactive (NONREACTIVE) 01/22/19 13:30 HIV 1&2 Antibody Screen Negative 01/22/19 13:30 HIV P24 Antigen Negative 01/22/19 13:30 01/25/19 08:32 withdrawal symptom Plan: continue detox,discharge in am
[2019-01-25] MEDS: buPROPion HCL 100 MG TABLET PO SCH (10:03)
[2019-01-25] MEDS: ARIPiprazole 5 MG TABLET (FP) PO SCH (10:03)
[2019-01-25] MEDS: PRENATAL VITAMINS W/ FOLIC ACID TABLET (FP) PO SCH (10:03)
[2019-01-25] MEDS: BUPRENORPHINE/NALOXONE 8 MG/2 MG FILM PACKET SL SCH ×2 (10:04→22:37)
[2019-01-25] MEDS: THIAMINE HCL 100 MG TABLET (FP) PO SCH (22:37)
[2019-01-26] MEDS ORDERED: chlordiazePOXIDE HCL 10 MG CAPSULE PO SCH (05:00)
--- NOTE | 2019-01-26 09:16 | PN ---
S CIWA - CIWA Score Nausea/Vomitin-No Nausea/No Vomiting Muscle Tremors: 1-None Visible, but [place] Anxiety: 1-Mildly Anxious Agitation: 1-Slight > Activity Paroxysmal Sweats: No Perspiration Orientation: 0-Oriented Tacttile Disturbances: 0-None Auditory Disturbances: 0-None Visual Disturbances: 0-None Headache: 1-Very Mild CIWA-Ar Total Score: 4 BHS Progress Note (SOAP) Subjective: alert,no complaint Objective: 01/26/19 09:15 Vital Signs Temperature 96.3 F L 01/26/19 06:19 Pulse Rate 69 01/26/19 06:19 Respiratory Rate 16 01/26/19 06:19 Blood Pressure 122/80 01/26/19 06:19 O2 Sat by Pulse Oximetry (%) Assessment: 01/26/19 09:15 detox completed,no withdrawal symptom Plan: discharge today,follow up with after care program as arrangement,[facility]
--- NOTE | 2019-01-26 09:21 | DS ---
[facility] Detox Discharge Summary Admission Date: 01/22/19 Discharge Date: 01/26/19 - History Present History: Alcohol Dependence, Cannabis Dependence, Opioid Dependence Additional Comments: follow up with rehab [facility] as arrangement Pertinent Past History: nicotine dependence schizoaffective disorder encounter suboxone maintenance - Physical Exam Results Vital Signs: Vital Signs Temperature 96.3 F L 01/26/19 06:19 Pulse Rate 69 01/26/19 06:19 Respiratory Rate 16 01/26/19 06:19 Blood Pressure 122/80 01/26/19 06:19 O2 Sat by Pulse Oximetry (%) Pertinent Admission Physical Exam Findings: withdrawal signs and symptom Vital Signs Temperature 96.3 F L 01/26/19 06:19 Pulse Rate 69 01/26/19 06:19 Respiratory Rate 16 01/26/19 06:19 Blood Pressure 122/80 01/26/19 06:19 O2 Sat by Pulse Oximetry (%) Laboratory Last Values WBC 5.8 K/mm3 (4.0-10.0) 01/22/19 13:30 RBC 4.54 M/mm3 (4.00-5.60) 01/22/19 13:30 Hgb 14.7 GM/dL (11.7-16.9) 01/22/19 13:30 Hct 43.6 % (35.4-49) 01/22/19 13:30 MCV 96.1 fl (80-96) H 01/22/19 13:30 MCH 32.4 pg (25.7-33.7) 01/22/19 13:30 MCHC 33.7 g/dl (32.0-35.9) 01/22/19 13:30 RDW 14.8 % (11.9-15.9) 01/22/19 13:30 Plt Count 220 K/MM3 (134-434) 01/22/19 13:30 MPV 8.8 fl (7.5-11.1) 01/22/19 13:30 Sodium 144 mmol/L (136-145) 01/24/19 07:50 Potassium 4.2 mmol/L (3.5-5.1) 01/24/19 07:50 Chloride 110 mmol/L (98-107) H 01/24/19 07:50 Carbon Dioxide 28 mmol/L (21-32) 01/24/19 07:50 Anion Gap 5 MMOL/L (8-16) L 01/24/19 07:50 BUN 21.0 mg/dL (7-18) H 01/24/19 07:50 Creatinine 1.2 mg/dL (0.55-1.3) 01/24/19 07:50 Est GFR (CKD-EPI)AfAm 81.80 01/24/19 07:50 Est GFR (CKD-EPI)NonAf 70.58 01/24/19 07:50 Random Glucose 76 mg/dL (74-106) 01/24/19 07:50 Calcium 9.0 mg/dL (8.5-10.1) 01/24/19 07:50 Total Bilirubin 0.7 mg/dL (0.2-1) 01/24/19 07:50 AST 28 U/L (15-37) 01/24/19 07:50 ALT 31 U/L (13-61) 01/24/19 07:50 Alkaline Phosphatase 117 U/L (45-117) 01/24/19 07:50 Total Protein 6.1 g/dl (6.4-8.2) L 01/24/19 07:50 Albumin 3.3 g/dl (3.4-5.0) L 01/24/19 07:50 Urine Color Yellow 01/22/19 14:30 Urine Appearance Clear 01/22/19 14:30 Urine pH 5.0 (5.0-8.0) 01/22/19 14:30 Ur Specific [place] 1.019 (1.010-1.035) 01/22/19 14:30 Urine Protein Negative (NEGATIVE) 01/22/19 14:30 Urine Glucose (UA) Negative (NEGATIVE) 01/22/19 14:30 Urine Ketones Negative (NEGATIVE) 01/22/19 14:30 Urine Blood Negative (NEGATIVE) 01/22/19 14:30 Urine Nitrite Negative (NEGATIVE) 01/22/19 14:30 Urine Bilirubin Negative (NEGATIVE) 01/22/19 14:30 Urine Urobilinogen 0.2 mg/dL (0.2-1.0) 01/22/19 14:30 Ur Leukocyte Esterase Negative (NEGATIVE) 01/22/19 14:30 RPR Titer Nonreactive (NONREACTIVE) 01/22/19 13:30 HIV 1&2 Antibody Screen Negative 01/22/19 13:30 HIV P24 Antigen Negative 01/22/19 13:30 - Treatment Hospital Course: Detox Protocol Followed, Detoxed Safely, Responded well, Discharged Condition Good, Rehab Referral Accepted Patient has Accepted a Rehab Referral to: [facility] - Medication Discharge Medications: Ambulatory Orders Deanisa 01/22/19 Suboxone 8 mg-2 mg Sl Tablets 01/22/19 - Diagnosis (1) Encounter for monitoring Suboxone maintenance therapy Current Visit: Yes Status: Acute (2) Heroin abuse Current Visit: Yes Status: Acute (3) Alcohol dependence with uncomplicated withdrawal Current Visit: No Status: Acute (4) Weight loss Current Visit: No Status: Acute (5) Low back pain Current Visit: No Status: Chronic Qualifiers: Chronicity: unspecified Back pain laterality: unspecified Sciatica presence: unspecified whether sciatica present Qualified Code(s): M54.5 - Low back pain (6) Nicotine dependence Current Visit: No Status: Chronic Qualifiers: Nicotine product type: cigarettes Substance use status: uncomplicated Qualified Code(s): F17.210 - Nicotine dependence, cigarettes, uncomplicated (7) Schizoaffective disorder Current Visit: No Status: Chronic Qualifiers: Schizoaffective disorder type: unspecified Qualified Code(s): F25.9 - Schizoaffective disorder, unspecified - AMA Did Patient Leave Against Medical Advice: No
[2019-01-26] MEDS: BUPRENORPHINE/NALOXONE 8 MG/2 MG FILM PACKET SL SCH (10:44)
[2019-01-26] MEDS: PRENATAL VITAMINS W/ FOLIC ACID TABLET (FP) PO SCH (10:44)
[2019-01-26] MEDS: buPROPion HCL 100 MG TABLET PO SCH (10:44)
[2019-01-26] MEDS: ARIPiprazole 5 MG TABLET (FP) PO SCH (10:44)
[2019-01-26 11:17] VITALS: BP 142/89; PULSE 65; TEMP 97.2
[2019-01-27] MEDS ORDERED: chlordiazePOXIDE HCL 10 MG CAPSULE PO ONE (05:00)
== END 2019-01-26 13:10 | disposition other institution (70) | DRG 773 ==
LOC: YASAS 09:55 → Y6N 13:47
PROVIDERS: ADMIT Surgery; ATTEND Surgery
PROC: HZ2ZZZZ Detoxification Services for Substance Abuse Treatment (ICD-10-PCS; principal; 2019-01-22)
DX: F10.230 Alcohol dependence with withdrawal, uncomplicated (principal); F11.20 Opioid dependence, uncomplicated; F13.20 Sedative, hypnotic or anxiolytic dependence, uncomplicated; F14.20 Cocaine dependence, uncomplicated; F12.20 Cannabis dependence, uncomplicated; F17.210 Nicotine dependence, cigarettes, uncomplicated; F19.282 Other psychoactive substance dependence with psychoactive substance-induced sleep disorder; F25.9 Schizoaffective disorder, unspecified; F32.9 Major depressive disorder, single episode, unspecified; E86.0 Dehydration; M54.5 Low back pain; R63.4 Abnormal weight loss; Z68.30 Body mass index [BMI] 30.0-30.9, adult; Z51.81 Encounter for therapeutic drug level monitoring
CPT/HCPCS: 36415; 80053; 81003; 85027; 86593; 87389

== ENCOUNTER 2019-01-26 13:31 | Inpatient (IN) | payer OTHER ==
--- NOTE | 2019-01-26 14:43 | HP ---
[facility] Rehab Assess/Revision - Admission History Admitted to Rehab from: [facility] Date of Admission to Rehab: 01/26/19 - Findings Detox History & Physical reviewed: Yes Concur with findings: Yes Comments/Additional Findings: for rehab as protocol Inpatient Rehab Admission - Rehab Decision to Admit Inpatient rehab admission?: Yes - Initial Determination Are CD services needed?: Yes Free of communicable disease: Yes Not in need of hospitalization: Yes - Rehab Admission Criteria Previous failed treatment: Yes Poor recovery environment: Yes Comorbidities: Yes Lacks judgement: No Patient is meeting Inpatient Rehab admission criteria:: Yes
[2019-01-26] MEDS ORDERED: P-EPHED 60MG/TRIPROLIDI 2.5MG TABLET PO PRN (14:44)
[2019-01-26] MEDS ORDERED: guaiFENesin 200 MG/10 ML 10 ML UNIT-DOSE CUPS PO PRN (14:44)
[2019-01-26] MEDS ORDERED: hydrOXYzine PAMOATE 50 MG CAPSULE (FP) PO PRN (14:44)
[2019-01-26] MEDS ORDERED: IBUPROFEN 400 MG TABLET (FP) PO PRN (14:44)
[2019-01-26] MEDS ORDERED: MAGNESIUM HYDROX 2400MG/30ML ORAL SUSPENSION 30 ML CUP PO PRN (14:44)
[2019-01-26] MEDS ORDERED: MAG HYDROX/AL HYDROX/SIMETH 30 ML UNIT-DOSE CUP PO PRN (14:44)
[2019-01-26] MEDS ORDERED: MENTHOL/PHENOL 1 EACH UD MM PRN (14:44)
[2019-01-26] MEDS ORDERED: MAGNESIUM CITRATE 300 ML BOTTLE PO PRN (14:44)
[2019-01-26] MEDS ORDERED: LOPERAMIDE HCL 2 MG CAPSULE PO PRN (14:44)
[2019-01-26] MEDS ORDERED: ACETAMINOPHEN 325 MG TABLET (FP) PO PRN (14:44)
[2019-01-26] MEDS ORDERED: MELATONIN 5 MG TABLETS PO PRN (22:00)
[2019-01-26] MEDS ORDERED: THIAMINE HCL 100 MG TABLET (FP) PO SCH (22:00)
[2019-01-26] MEDS ORDERED: BUPRENORPHINE/NALOXONE 8 MG/2 MG FILM PACKET SL SCH (22:00)
[2019-01-27] MEDS ORDERED: ARIPiprazole 5 MG TABLET (FP) PO SCH (10:00)
[2019-01-27] MEDS ORDERED: PRENATAL VITAMINS W/ FOLIC ACID TABLET (FP) PO SCH (10:00)
[2019-01-27] MEDS ORDERED: buPROPion HCL 100 MG TABLET PO SCH (10:00)
== END 2019-01-26 18:32 | disposition left against medical advice (07) | DRG 770 ==
LOC: YASAS 13:31 → Y3W 13:36
PROVIDERS: ADMIT Neuromusculoskeletal Medicine & OMM; ATTEND Neuromusculoskeletal Medicine & OMM
PROC: HZ42ZZZ Group Counseling for Substance Abuse Treatment, Cognitive-Behavioral (ICD-10-PCS; principal; 2019-01-26)
DX: F11.20 Opioid dependence, uncomplicated (principal); F10.20 Alcohol dependence, uncomplicated; F14.20 Cocaine dependence, uncomplicated; F17.210 Nicotine dependence, cigarettes, uncomplicated; F25.9 Schizoaffective disorder, unspecified; F32.9 Major depressive disorder, single episode, unspecified; F41.9 Anxiety disorder, unspecified; E87.6 Hypokalemia; Z51.81 Encounter for therapeutic drug level monitoring

== ENCOUNTER 2019-03-03 11:14 | Inpatient (IN) | payer OTHER ==
[2019-03-03 12:26] VITALS: BMI 30.1
--- NOTE | 2019-03-03 13:20 | HP ---
"CIWA Score Nausea/Vomitin Muscle Tremors: 3 Anxiety: 3 Agitation: 1-Slight > Activity Paroxysmal Sweats: 1-Minimal Palms Moist Orientation: 0-Oriented Tacttile Disturbances: 0-None Auditory Disturbances: 0-None Visual Disturbances: 1-Very Mild Sensitivity Headache: 2-Mild CIWA-Ar Total Score: 13 - Admission Criteria OASAS Guidelines: Admission for Medically Managed Detox: Requires at least one of the followin. CIWA greater than 12 2. Seizures within the past 24 hours 3. Delirium tremens within the past 24 hours 4. Hallucinations within the past 24 hours 5. Acute intervention needed for co occurring medical disorder 6. Acute intervention needed for co occurring psychiatric disorder 7. Severe withdrawal that cannot be handled at a lower level of care (continued vomiting, continued diarrhea, abnormal vital signs) requiring intravenous medication and/or fluids 8. Patient presents the following: CIWA greater than 12 Admission Criteria Met: Admission criteria met Admission ROS BHS - HPI Chief Complaint: I love it but I have to stop, I don't want to , or ruin my kidneys. Allergies/Adverse Reactions: Allergies Allergy/AdvReac Type Severity Reaction Status Date / Time No Known Allergies Allergy Verified 03/03/19 12:00 History of Present Illness: 48 yo gentleman here for detox from alcohol - states using benzo but urine tox negative. Patient states he takes suboxone but urine tox negative for bup - states he did not take it for 'a few days'. This one of several admissions for detox. History of being on methadone program but went from methadone to suboxone - states he holds off on the suboxone when he feels like using heroin. History of black outs, one seizure, denies opiate overdose. States he cannot stop drinking on his own, longest time sober 7 years when he was working which was over 20 years ago. [facility] Search Terms: dhaval paulino, 1970 Search Date: 03/03/2019 01:17:48 PM The Drug Utilization Report below displays all of the controlled substance prescriptions, if any, that your patient has filled in the last twelve months. The information displayed on this report is compiled from pharmacy submissions to the Department, and accurately reflects the information as submitted by the pharmacies. This report was requested by: Stacy Blanco | Reference #: [id number] Others' Prescriptions Patient Name: Dhaval Paulino Date: 1970 Address: [address] [place] [address] Sex: Male Rx Written Rx Dispensed Drug Quantity Days Supply Prescriber Name 02/06/2019 02/06/2019 buprenorphine-naloxone 8-2 mg sl film 90 30 Jose Roberto Lal) Patient Name: Dhaval Paulino Date: 1970 Address: [address] [place] [address] Sex: Male Rx Written Rx Dispensed Drug Quantity Days Supply Prescriber Name 01/09/2019 01/09/2019 buprenorphine-naloxone 8-2 mg sl film 84 28 Renaldo Guzman 12/07/2018 12/07/2018 buprenorphine-naloxone 8-2 mg sl film 56 28 Renaldo Guzman 11/21/2018 11/21/2018 buprenorphine-naloxone 8-2 mg sl film 28 14 Renaldo Guzman 10/24/2018 10/24/2018 oxycodone-acetaminophen 10-325 mg tab 60 30 Renaldo Guzman 09/18/2018 09/21/2018 oxycodone-acetaminophen 10-325 mg tab 60 30 Renaldo Guzman 08/17/2018 08/25/2018 oxycodone-acetaminophen 10-325 mg tab 60 30 Renaldo Guzman 07/14/2018 07/17/2018 oxycodone-acetaminophen 10-325 mg tab 60 30 Thomas Exam Limitations: No Limitations - Ebola screening Have you traveled outside of the country in the last 21 days: No (N) Have you had contact with anyone from an Ebola affected area: No Do you have a fever: No - Review of Systems Constitutional: Loss of Appetite, Changes in sleep, Weakness EENT: reports: No Symptoms Reported Respiratory: reports: No Symptoms reported Cardiac: reports: No Symptoms Reported GI: reports: Nausea, Poor Appetite, Poor Fluid Intake, Abdominal cramping : reports: Frequency Musculoskeletal: reports: Back Pain Integumentary: reports: No Symptoms Reported Neuro: reports: Headache, Tremors Endocrine: reports: No Symptoms Reported Hematology: reports: No Symptoms Reported Psychiatric: reports: Judgement Intact, Mood/Affect Appropiate, Anxious Other Systems: Reviewed and Negative Patient History - Patient Medical History Hx Anemia: No Hx Asthma: No Hx Chronic Obstructive Pulmonary Disease (COPD): No Hx Cancer: No Hx Cardiac Disorders: No Hx Congestive Heart Failure: No Hx Hypertension: No Hx Hypercholesterolemia: No Hx Pacemaker: No HX Cerebrovascular Accident: No Hx Seizures: Yes (years ago) Hx Dementia: No Hx Diabetes: No Hx Gastrointestinal Disorders: No Hx Liver Disease: No Hx Genitourinary Disorders: No Hx Sexually Transmitted Disorders: No Hx Renal Disease (ESRD): Yes (renal insufficiency) Hx Thyroid Disease: No Hx Human Immunodeficiency Virus (HIV): No (LAST 06/10 NEGATIVE) Hx Hepatitis C: No Hx Depression: Yes Hx Suicide Attempt: No Hx Bipolar Disorder: Yes Hx Schizophrenia: Yes (hospitalized Bx 2017) - Patient Surgical History Past Surgical History: No Hx Neurologic Surgery: No Hx Cataract Extraction: No Hx Cardiac Surgery: No Hx Lung Surgery: No Hx Breast Surgery: No Hx Breast Biopsy: No Hx Abdominal Surgery: No Hx Appendectomy: No Hx Cholecystectomy: No Hx Genitourinary Surgery: No Hx Section: No Hx Orthopedic Surgery: No Anesthesia Reaction: No - PPD History Previous Implant?: No Documented Results: Negative w/proof Implanted On Prior R Admission?: Yes Date: 09/11/18 Results: 0mm PPD to be Administered?: No - Reproductive History Patient is a Female of Child Bearing Age (11 -55 yrs old): No - Smoking Cessation Smoking history: Current every day smoker Have you smoked in the past 12 months: Yes Aproximately how many cigarettes per day: 10 Cigars Per Day: 0 Hx Chewing Tobacco Use: No Initiated information on smoking cessation: Yes 'Breaking Loose' booklet given: 03/03/19 (give on floor) - Substance & Tx. History Hx Alcohol Use: Yes Hx Substance Use: Yes Substance Use Type: Alcohol, Cocaine, Opiates Hx Substance Use Treatment: Yes (detox, rehab, suboxone, hx methadone) - Substances abused Alcohol Substance route: Oral Frequency: Daily Amount used: 1/5 vodka and 1 six pack daily Age of first use: 17 Date of last use: 03/03/19 Alprazolam (Xanax) Substance route: Oral Frequency: 1-2 times per week Amount used: 2 mg Age of first use: 34 Date of last use: 03/02/19 Cocaine Substance route: Inhalation Frequency: 3-6 times per week Amount used: $100 Age of first use: 19 Date of last use: 03/02/19 Heroin Substance route: Inhalation Frequency: 1-3 times last 30 days Amount used: two snorts Age of first use: 19 Date of last use: 03/01/19 Family Disease History - Family Disease History Family Disease History: Diabetes: Father (ALCOHOL,), Other: Father, Mother (living - healthy), Brother (two - healthy), Sister (two - healthy), Son (one age 23 - healthy), Daughter (one age 24 - healthy) Admission Physical Exam [facility] - Vital Signs Vital Signs: Vital Signs - 24 hr 03/03/19 11:59 Temperature 97.1 F L Pulse Rate 67 Respiratory 18 Rate Blood Pressure 123/79 - Physical General Appearance: Yes: Nourished, Appropriately Dressed, Moderate Distress, Tremorous, Anxious HEENTM: Yes: Hearing grossly Normal, Normal ENT Inspection, Normocephalic, Normal Voice Respiratory: Yes: Normal Breath Sounds, No Respiratory Distress Neck: Yes: No masses,lesions,Nodules, Supple Breast: Yes: Breast Exam Deferred Cardiology: Yes: Regular Rhythm, Regular Rate Abdominal: Yes: Soft Genitourinary: Yes: Frequency Back: Yes: Normal Inspection Musculoskeletal: Yes: full range of Motion, Gait Steady Extremities: Yes: Normal Inspection, Normal Range of Motion, Non-Tender Neurological: Yes: Fully Oriented, Alert, Motor Strength 5/5, Normal Mood/Affect , Normal Response Integumentary: Yes: Normal Color, Dry, Warm Lymphatic: Yes: Within Normal Limits - Diagnostic (1) Alcohol dependence with uncomplicated withdrawal Current Visit: Yes Status: Chronic (2) Cocaine abuse Current Visit: Yes Status: Chronic (3) Encounter for monitoring Suboxone maintenance therapy Current Visit: Yes Status: Chronic (4) Renal insufficiency Current Visit: Yes Status: Chronic (5) Heroin abuse Current Visit: Yes Status: Acute (6) Sedative hypnotic or anxiolytic dependence Current Visit: Yes Status: Chronic (7) Dehydration Current Visit: Yes Status: Chronic (8) Nicotine dependence Current Visit: Yes Status: Chronic Qualifiers: Nicotine product type: cigarettes Substance use status: uncomplicated Qualified Code(s): F17.210 - Nicotine dependence, cigarettes, uncomplicated Comment: declines gum or patch Cleared for Admission [facility] - Detox or Rehab [facility] Level of Care: Medically Managed Detox Regimen/Protocol: Librium Breathalyzer - Breathalyzer Breathalyzer: 0 Urine Drug Screen - Test Device Lot number: [id number] Expiration date: 11/21/20 - Control Is test valid?: Yes - Results Drug screen NEGATIVE: No Urine drug screen results: ZOHRA-Cocaine Inpatient Rehab Admission - Rehab Decision to Admit Inpatient rehab admission?: No"
[2019-03-03] MEDS ORDERED: chlordiazePOXIDE HCL 25 MG CAPSULE PO ONE (13:38)
[2019-03-03] MEDS ORDERED: hydrOXYzine PAMOATE 25 MG CAPSULE (FP) PO PRN (13:38)
[2019-03-03] MEDS ORDERED: chlordiazePOXIDE HCL 25 MG CAPSULE PO PRN (13:38)
[2019-03-03] MEDS ORDERED: METHOCARBAMOL 500 MG TABLET PO PRN (13:38)
[2019-03-03] MEDS ORDERED: MENTHOL/PHENOL 1 EACH UD MM PRN (13:38)
[2019-03-03] MEDS ORDERED: MAGNESIUM CITRATE 300 ML BOTTLE PO PRN (13:38)
[2019-03-03] MEDS ORDERED: MAG HYDROX/AL HYDROX/SIMETH 30 ML UNIT-DOSE CUP PO PRN (13:38)
[2019-03-03] MEDS ORDERED: BISMUTH SUBSALICYLATE 524 MG/30 ML UD PO PRN (13:38)
[2019-03-03] MEDS ORDERED: IBUPROFEN 400 MG TABLET (FP) PO PRN (13:38)
[2019-03-03] MEDS ORDERED: ACETAMINOPHEN 325 MG TABLET (FP) PO PRN (13:38)
[2019-03-03] MEDS ORDERED: MELATONIN 5 MG TABLETS PO PRN (13:38)
[2019-03-03] MEDS ORDERED: MAGNESIUM HYDROX 2400MG/30ML ORAL SUSPENSION 30 ML CUP PO PRN (13:38)
--- NOTE | 2019-03-03 15:21 | EKG ---
Test Reason : Blood Pressure : / mmHG Vent. Rate : 057 BPM Atrial Rate : 057 BPM P-R Int : 158 ms QRS Dur : 102 ms QT Int : 426 ms P-R-T Axes : 068 -29 043 degrees QTc Int : 414 ms SINUS BRADYCARDIA WITH PREMATURE ATRIAL COMPLEXES OTHERWISE NORMAL ECG WHEN COMPARED WITH ECG OF 16-DEC-2017 16:14, PREMATURE ATRIAL COMPLEXES ARE NOW PRESENT Confirmed by MD Kristopher, Dany ([id number]) on 03/03/2019 3:21:04 PM Referred By: GHADA SCOTT Confirmed By:Dany Summers MD
[2019-03-03] MEDS: chlordiazePOXIDE HCL 25 MG CAPSULE PO SCH ×2 (18:09→22:54)
[2019-03-03] MEDS: THIAMINE HCL 100 MG TABLET (FP) PO SCH (22:54)
[2019-03-03] MEDS: BUPRENORPHINE/NALOXONE 8 MG/2 MG FILM PACKET SL SCH (22:54)
[2019-03-04] MEDS: chlordiazePOXIDE HCL 25 MG CAPSULE PO SCH ×4 (05:08→22:05)
[2019-03-04 09:58] LABS: HEMATOCRIT 37.5 % (35.4-49); HEMOGLOBIN 12.5 GM/dL (11.7-16.9); MCH 32.3 pg (25.7-33.7); MCHC 33.3 g/dl (32.0-35.9); MEAN CELL VOLUME 96.9 fl (80-96); MEAN PLT VOLUME 8.3 fl (7.5-11.1); PLATELET COUNT 192 K/MM3 (134-434); RBC 3.87 M/mm3 (4.00-5.60); RDW 14.4 % (11.9-15.9); WHITE BLOOD COUNT 5.6 K/mm3 (4.0-10.0)
[2019-03-04 10:05] LABS: ALBUMIN 2.8 g/dl (3.4-5.0); BILIRUBIN,TOTAL 0.6 mg/dL (0.2-1); BLOOD UREA NITROGEN 20.4 mg/dL (7-18); CALCIUM 8.4 mg/dL (8.5-10.1); CREATININE 1.3 mg/dL (0.55-1.3); POTASSIUM 4.1 mmol/L (3.5-5.1); TOT PROT 5.4 g/dl (6.4-8.2)
[2019-03-04] MEDS: PRENATAL VITAMINS W/ FOLIC ACID TABLET (FP) PO SCH (10:29)
[2019-03-04] MEDS: BUPRENORPHINE/NALOXONE 8 MG/2 MG FILM PACKET SL SCH ×2 (10:30→22:05)
--- NOTE | 2019-03-04 10:59 | CONSULT ---
[facility] Psychiatric Consult - Data Date of interview: 03/04/19 Admission source: [facility] Identifying data: Readmission to [facility] for this 48 y/o AA male self- referred for detoxification (alcohol, cocaine, heroin, xanax). Interviewed at [address] [place] [address]. Patient is , a father of three, domiciled, unemployed and currently supported on welfare. Substance Abuse History: Confirmed by patient in this interview. Details in current [facility] report as follows : Smoking history: Current every day smoker. Have you smoked in the past 12 months: Yes. Aproximately how many cigarettes per day: 10. Cigars Per Day: 0. Hx Chewing Tobacco Use: No. Initiated information on smoking cessation: Yes. 'Breaking Loose' booklet given: (give on floor). - Substance & Tx. History. Hx Alcohol Use: Yes. Hx Substance Use: Yes. Substance Use Type: Alcohol, Cocaine, Opiates. Hx Substance Use Treatment: Yes (detox, rehab, suboxone, hx methadone). - Substances abused. Alcohol. Substance route: Oral. Frequency: Daily. Amount used: 1/5 vodka and 1 six pack daily. Age of first use: 17. Date of last use: 03/03/19. Alprazolam (Xanax). Substance route: Oral. Frequency: 1-2 times per week. Amount used: 2 mg. Age of first use: 34. Date of last use : 03/02/19. Cocaine. Substance route: Inhalation. Frequency: 3-6 times per week. Amount used: $100. Age of first use: 19. Date of last use: . Heroin. Substance route: Inhalation. Frequency: 1-3 times last 30 days. Amount used: two snorts. Age of first use: 19. Date of last use: Medical History: Medical profile is remarkable for chronic lumbar pain, antecedent of a withdrwal-related seizure (years ago) and a history of renal insufficiency. Psychiatric History: Patient endorses a history of multiple psychiatric hospitalizations (all at [facility]). Onset of psychiatric disturbances (behavioral + attentional) : childhood. Mr Paulino had initially been diagnosed with ADHD and prescribed psychostimulants (mother challenged treatment). Diagnosis was later upgraded to schizophrenia/bipolar disorder. Various medications (lithium, abilify, wellbutrin, trazodone) were utilized over the years. Patient is known to [facility] outpatient program in [facility]. Admits to chronic non-adherence to psychiatric aftercare. Currently on suboxone maintenance. Patient denies history of suicide attempts. Physical/Sexual Abuse/Trauma History: Patient denies history of abuse in this interview. Additional Comment: Urine drug screen results: ZOHRA-Cocaine. Noted. Mental Status Exam - Mental Status Exam Alert and Oriented to: Time, Place, Person Cognitive Function: Good Patient Appearance: Unkempt, Disheveled Mood: Nervous, Withdrawn Affect: Mood Congruent Patient Behavior: Inappropriate, Fatigued, Cooperative Speech Pattern: Clear, Appropriate Voice Loudness: Normal Thought Process: Goal Oriented Thought Disorder: Not Present Hallucinations: Denies Suicidal Ideation: Denies Homicidal Ideation: Denies Insight/Judgement: Poor Sleep: Poorly, Difficulty falling asleep Appetite: Good Muscle strength/Tone: Normal Gait/Station: Other (not observed; still in bed) Psychiatric Findings - Problem List ([place] 1, 2,3) (1) Alcohol dependence with uncomplicated withdrawal Current Visit: Yes Status: Acute (2) Opioid dependence on agonist therapy Current Visit: Yes Status: Chronic (3) Sedative hypnotic or anxiolytic dependence Current Visit: Yes Status: Chronic (4) Cocaine dependence Current Visit: Yes Status: Chronic Qualifiers: Substance use status: uncomplicated Qualified Code(s): F14.20 - Cocaine dependence, uncomplicated (5) Nicotine dependence Current Visit: Yes Status: Chronic Qualifiers: Nicotine product type: cigarettes Substance use status: uncomplicated Qualified Code(s): F17.210 - Nicotine dependence, cigarettes, uncomplicated Comment: declines gum or patch (6) Substance induced mood disorder Current Visit: Yes Status: Chronic Comment: By history. Not always compliant with OPD care. (7) Schizoaffective disorder Current Visit: No Status: Chronic Qualifiers: Schizoaffective disorder type: unspecified Qualified Code(s): F25.9 - Schizoaffective disorder, unspecified Comment: As per existing records and self-report.Chronic non-adherence to OPD care and mood stabilizers. (8) Insomnia Current Visit: Yes Status: Acute (9) Insomnia Current Visit: Yes Status: Chronic (10) Non-compliance Current Visit: Yes Status: Chronic - Initial Treatment Plan Initial Treatment Plan: Psychoeducation. Sleep hygiene. Detoxification. AA/NA meetings. Support. Patient wants to resume wellbutrin and aripriprazole. Ordered : wellbutrin 100 mg po daily + abilify 5 mg po daily (verified via review of external pharmacy activity of 02/06/19 at [facility]). [place] held in view of abnormal renal function. Side effects/benefits discussed with the patient. Gave his consent (verbal) to . Observation.
[2019-03-04] MEDS: ARIPiprazole 5 MG TABLET (FP) PO SCH (12:44)
--- NOTE | 2019-03-04 14:57 | PN ---
[facility] CIWA - CIWA Score Nausea/Vomitin-No Nausea/No Vomiting Muscle Tremors: 2 Anxiety: 2 Agitation: 3 Paroxysmal Sweats: 2 Orientation: 0-Oriented Tacttile Disturbances: 0-None Auditory Disturbances: 0-None Visual Disturbances: 0-None Headache: 1-Very Mild CIWA-Ar Total Score: 10 S Progress Note (SOAP) Subjective: 48 years old male admitted on 03/03/19 for acute alcohol withdrawal sx management doing well with librium detox protocol received suboxone 8-2mg po bid last filled 02/06/19 long history of bipolar treated with lithium psychiatric referral with lithium serum level pending Objective: 03/04/19 15:01 Vital Signs Temperature 96.9 F L 03/04/19 13:02 Pulse Rate 55 L 03/04/19 13:02 Respiratory Rate 18 03/04/19 13:02 Blood Pressure 130/90 03/04/19 13:02 O2 Sat by Pulse Oximetry (%) Laboratory Last Values WBC 5.6 K/mm3 (4.0-10.0) 03/04/19 08:00 RBC 3.87 M/mm3 (4.00-5.60) L 03/04/19 08:00 Hgb 12.5 GM/dL (11.7-16.9) 03/04/19 08:00 Hct 37.5 % (35.4-49) 03/04/19 08:00 MCV 96.9 fl (80-96) H 03/04/19 08:00 MCH 32.3 pg (25.7-33.7) 03/04/19 08:00 MCHC 33.3 g/dl (32.0-35.9) 03/04/19 08:00 RDW 14.4 % (11.9-15.9) 03/04/19 08:00 Plt Count 192 K/MM3 (134-434) 03/04/19 08:00 MPV 8.3 fl (7.5-11.1) 03/04/19 08:00 Sodium 146 mmol/L (136-145) H 03/04/19 08:00 Potassium 4.1 mmol/L (3.5-5.1) 03/04/19 08:00 Chloride 114 mmol/L (98-107) H 03/04/19 08:00 Carbon Dioxide 28 mmol/L (21-32) 03/04/19 08:00 Anion Gap 4 MMOL/L (8-16) L 03/04/19 08:00 BUN 20.4 mg/dL (7-18) H 03/04/19 08:00 Creatinine 1.3 mg/dL (0.55-1.3) 03/04/19 08:00 Est GFR (CKD-EPI)AfAm 74.26 03/04/19 08:00 Est GFR (CKD-EPI)NonAf 64.07 03/04/19 08:00 Random Glucose 106 mg/dL (74-106) 03/04/19 08:00 Calcium 8.4 mg/dL (8.5-10.1) L 03/04/19 08:00 Total Bilirubin 0.6 mg/dL (0.2-1) 03/04/19 08:00 AST 24 U/L (15-37) 03/04/19 08:00 ALT 25 U/L (13-61) 03/04/19 08:00 Alkaline Phosphatase 144 U/L (45-117) H 03/04/19 08:00 Total Protein 5.4 g/dl (6.4-8.2) L 03/04/19 08:00 Albumin 2.8 g/dl (3.4-5.0) L 03/04/19 08:00 RPR Titer Nonreactive (NONREACTIVE) 03/04/19 08:00 lab noted Assessment: 03/04/19 15:01 alcohol withdrawal sx bipolar II disorder suboxone maintenance 03/04/19 15:02 alert oriented x 3 stable mood at this time speech clearly coherently Plan: continue librium detox regimen
[2019-03-04] MEDS: THIAMINE HCL 100 MG TABLET (FP) PO SCH (22:05)
[2019-03-05] MEDS: chlordiazePOXIDE HCL 25 MG CAPSULE PO SCH ×4 (05:30→22:47)
[2019-03-05] MEDS: ARIPiprazole 5 MG TABLET (FP) PO SCH (10:47)
[2019-03-05] MEDS: PRENATAL VITAMINS W/ FOLIC ACID TABLET (FP) PO SCH (10:47)
[2019-03-05] MEDS: BUPRENORPHINE/NALOXONE 8 MG/2 MG FILM PACKET SL SCH ×2 (10:47→23:45)
--- NOTE | 2019-03-05 11:24 | PN ---
[facility] CIWA - CIWA Score Nausea/Vomitin-No Nausea/No Vomiting Muscle Tremors: 2 Anxiety: 2 Agitation: 2 Paroxysmal Sweats: 1-Minimal Palms Moist Orientation: 0-Oriented Tacttile Disturbances: 0-None Auditory Disturbances: 0-None Visual Disturbances: 0-None Headache: 0-None Present CIWA-Ar Total Score: 7 S Progress Note (SOAP) Subjective: doing well with librium detox protocol anxious about bipolar treated with lithium seen by psychiatrist resume abilify and wellbutrin reporting feeling better Objective: 03/05/19 11:25 Vital Signs Temperature 96.9 F L 03/05/19 09:35 Pulse Rate 53 L 03/05/19 09:35 Respiratory Rate 18 03/05/19 09:35 Blood Pressure 123/84 03/05/19 09:35 O2 Sat by Pulse Oximetry (%) Laboratory Last Values WBC 5.6 K/mm3 (4.0-10.0) 03/04/19 08:00 RBC 3.87 M/mm3 (4.00-5.60) L 03/04/19 08:00 Hgb 12.5 GM/dL (11.7-16.9) 03/04/19 08:00 Hct 37.5 % (35.4-49) 03/04/19 08:00 MCV 96.9 fl (80-96) H 03/04/19 08:00 MCH 32.3 pg (25.7-33.7) 03/04/19 08:00 MCHC 33.3 g/dl (32.0-35.9) 03/04/19 08:00 RDW 14.4 % (11.9-15.9) 03/04/19 08:00 Plt Count 192 K/MM3 (134-434) 03/04/19 08:00 MPV 8.3 fl (7.5-11.1) 03/04/19 08:00 Sodium 146 mmol/L (136-145) H 03/04/19 08:00 Potassium 4.1 mmol/L (3.5-5.1) 03/04/19 08:00 Chloride 114 mmol/L (98-107) H 03/04/19 08:00 Carbon Dioxide 28 mmol/L (21-32) 03/04/19 08:00 Anion Gap 4 MMOL/L (8-16) L 03/04/19 08:00 BUN 20.4 mg/dL (7-18) H 03/04/19 08:00 Creatinine 1.3 mg/dL (0.55-1.3) 03/04/19 08:00 Est GFR (CKD-EPI)AfAm 74.26 03/04/19 08:00 Est GFR (CKD-EPI)NonAf 64.07 03/04/19 08:00 Random Glucose 106 mg/dL (74-106) 03/04/19 08:00 Calcium 8.4 mg/dL (8.5-10.1) L 03/04/19 08:00 Total Bilirubin 0.6 mg/dL (0.2-1) 03/04/19 08:00 AST 24 U/L (15-37) 03/04/19 08:00 ALT 25 U/L (13-61) 03/04/19 08:00 Alkaline Phosphatase 144 U/L (45-117) H 03/04/19 08:00 Total Protein 5.4 g/dl (6.4-8.2) L 03/04/19 08:00 Albumin 2.8 g/dl (3.4-5.0) L 03/04/19 08:00 RPR Titer Nonreactive (NONREACTIVE) 03/04/19 08:00 lab noted Assessment: 03/05/19 11:26 alcohol withdrawal sx alert oriented x 3 stable mood speech coherent logical and goal directed that agrees to compliance with bipolar medications Plan: continue librium detox regimen
[2019-03-05] MEDS: buPROPion HCL 100 MG TABLET PO SCH (12:13)
[2019-03-05] MEDS: THIAMINE HCL 100 MG TABLET (FP) PO SCH (21:20)
[2019-03-06] MEDS ORDERED: chlordiazePOXIDE HCL 10 MG CAPSULE PO PRN
[2019-03-06] MEDS: chlordiazePOXIDE HCL 10 MG CAPSULE PO SCH ×4 (06:04→22:15)
[2019-03-06] MEDS: buPROPion HCL 100 MG TABLET PO SCH (10:12)
[2019-03-06] MEDS: BUPRENORPHINE/NALOXONE 8 MG/2 MG FILM PACKET SL SCH ×2 (10:13→22:15)
[2019-03-06] MEDS: PRENATAL VITAMINS W/ FOLIC ACID TABLET (FP) PO SCH (10:13)
[2019-03-06] MEDS: ARIPiprazole 5 MG TABLET (FP) PO SCH (10:13)
--- NOTE | 2019-03-06 12:48 | PN ---
S CIWA - CIWA Score Nausea/Vomitin Muscle Tremors: 2 Anxiety: 2 Agitation: 2 Paroxysmal Sweats: No Perspiration Orientation: 0-Oriented Tacttile Disturbances: 1-Very Mild Itch/Numbness Auditory Disturbances: 0-None Visual Disturbances: 0-None Headache: 2-Mild CIWA-Ar Total Score: 11 S Progress Note (SOAP) Subjective: alert,irritable,anxious,interrupted sleep,pain in the body Objective: 03/06/19 12:47 Vital Signs Temperature 97.3 F L 03/06/19 09:20 Pulse Rate 67 03/06/19 09:20 Respiratory Rate 03/06/19 09:20 Blood Pressure 140/95 03/06/19 09:20 O2 Sat by Pulse Oximetry (%) Assessment: 03/06/19 12:47 withdrawal symptom Plan: continue detox librium regimen
[2019-03-06] MEDS: THIAMINE HCL 100 MG TABLET (FP) PO SCH (22:14)
[2019-03-07] MEDS ORDERED: chlordiazePOXIDE HCL 10 MG CAPSULE PO SCH (05:00)
[2019-03-07] MEDS: PRENATAL VITAMINS W/ FOLIC ACID TABLET (FP) PO SCH (10:26)
[2019-03-07] MEDS: ARIPiprazole 5 MG TABLET (FP) PO SCH (10:26)
[2019-03-07] MEDS: BUPRENORPHINE/NALOXONE 8 MG/2 MG FILM PACKET SL SCH (10:26)
[2019-03-07] MEDS: buPROPion HCL 100 MG TABLET PO SCH (10:26)
[2019-03-07 13:43] VITALS: BP 116/78; PULSE 84; TEMP 95.6
--- NOTE | 2019-03-07 14:24 | PN ---
S CIWA - CIWA Score Nausea/Vomitin-No Nausea/No Vomiting Muscle Tremors: None Anxiety: 2 Agitation: 1-Slight > Activity Paroxysmal Sweats: No Perspiration Orientation: 0-Oriented Tacttile Disturbances: 0-None Auditory Disturbances: 0-None Visual Disturbances: 0-None Headache: 0-None Present CIWA-Ar Total Score: 3 BHS Progress Note (SOAP) Subjective: Anxious (Mild). Objective: PATIENT A & O X 3, OBSERVED AMBULATING ON UNIT UNASSISTED. IN NO ACUTE DISTRESS. 03/07/19 14:21 Vital Signs Temperature 95.6 F L 03/07/19 13:42 Pulse Rate 84 03/07/19 13:42 Respiratory Rate 18 03/07/19 13:42 Blood Pressure 116/78 03/07/19 13:42 O2 Sat by Pulse Oximetry (%) Laboratory Tests 03/04/19 03/04/19 03/04/19 08:00 08:00 08:00 WBC 5.6 RBC 3.87 L Hgb 12.5 Hct 37.5 MCV 96.9 H MCH 32.3 MCHC 33.3 RDW 14.4 Plt Count 192 MPV 8.3 Sodium 146 H Potassium 4.1 Chloride 114 H Carbon Dioxide 28 Anion Gap 4 L BUN 20.4 H Creatinine 1.3 Est GFR (CKD-EPI)AfAm 74.26 Est GFR (CKD-EPI)NonAf 64.07 Random Glucose 106 Calcium 8.4 L Total Bilirubin 0.6 AST 24 ALT 25 Alkaline Phosphatase 144 H Total Protein 5.4 L Albumin 2.8 L Milam RPR Titer Nonreactive 03/04/19 08:00 WBC RBC Hgb Hct MCV MCH MCHC RDW Plt Count MPV Sodium Potassium Chloride Carbon Dioxide Anion Gap BUN Creatinine Est GFR (CKD-EPI)AfAm Est GFR (CKD-EPI)NonAf Random Glucose Calcium Total Bilirubin AST ALT Alkaline Phosphatase Total Protein Albumin Milam 0 L RPR Titer LABS NOTED. Assessment: 03/07/19 14:23 COMPLETION OF DETOX REGIMEN. Plan: SINCE PATIENT REPORTS THAT CURRENT WITHDRAWAL / DETOX SYMPTOMS ARE MINIMAL IN DEGREE AND THAT HE FEELS WELL OVERALL, AT PATIENTS REQUEST, HE WAS GRANTED AN EARLY DISCHARGE FROM DETOX UNIT TODAY SO THAT HE MAY PROCEED ON TO AFTERCARE PLAN - [facility] ([place], [place]).
--- NOTE | 2019-03-07 14:31 | DS ---
[facility] Detox Discharge Summary Admission Date: 03/03/19 Discharge Date: 03/07/19 - History Present History: Alcohol Dependence, Cocaine Dependence, Opioid Dependence Additional Comments: PATIENT REPORTS THAT CURRENT WITHDRAWAL / DETOX SYMPTOMS ARE MINIMAL IN DEGREE AND THAT HE FEELS WELL OVERALL AT TIME OF DISCHARGE FROM DETOX UNIT. PATIENT GOING TO [facility] ([place], [place]) FOR AFTERCARE. PATIENT WAS DISCHARGED FROM DETOX UNIT TO BE TAKEN OVER TO REHAB UNIT IN STABLE MEDICAL CONDITION. Pertinent Past History: Depression, Schizoaffective Disorder, History Of Seizure, History Of Renal Insufficiency, Bipolar Disorder, Dehydration, Nicotine Dependence, Insomnia, History Of Suboxone Maintenance Therapy. - Physical Exam Results Vital Signs: Vital Signs Temperature 95.6 F L 03/07/19 13:42 Pulse Rate 84 03/07/19 13:42 Respiratory Rate 18 03/07/19 13:42 Blood Pressure 116/78 03/07/19 13:42 O2 Sat by Pulse Oximetry (%) Pertinent Admission Physical Exam Findings: WITHDRAWAL SYMPTOMS. Laboratory Tests 03/04/19 03/04/19 03/04/19 08:00 08:00 08:00 WBC 5.6 RBC 3.87 L Hgb 12.5 Hct 37.5 MCV 96.9 H MCH 32.3 MCHC 33.3 RDW 14.4 Plt Count 192 MPV 8.3 Sodium 146 H Potassium 4.1 Chloride 114 H Carbon Dioxide 28 Anion Gap 4 L BUN 20.4 H Creatinine 1.3 Est GFR (CKD-EPI)AfAm 74.26 Est GFR (CKD-EPI)NonAf 64.07 Random Glucose 106 Calcium 8.4 L Total Bilirubin 0.6 AST 24 ALT 25 Alkaline Phosphatase 144 H Total Protein 5.4 L Albumin 2.8 L [place] RPR Titer Nonreactive 03/04/19 08:00 WBC RBC Hgb Hct MCV MCH MCHC RDW Plt Count MPV Sodium Potassium Chloride Carbon Dioxide Anion Gap BUN Creatinine Est GFR (CKD-EPI)AfAm Est GFR (CKD-EPI)NonAf Random Glucose Calcium Total Bilirubin AST ALT Alkaline Phosphatase Total Protein Albumin [place] 0 L RPR Titer LABS NOTED. - Treatment Hospital Course: Detox Protocol Followed, Detoxed Safely, Responded well, Discharged Condition Good, Rehab Referral Accepted Patient has Accepted a Rehab Referral to: [facility] ([place], [place]). - Medication Discharge Medications: Ambulatory Orders Aripiprazole [Abilify -] 5 mg PO DAILY 03/03/19 Bupropion HCl [Wellbutrin -] 100 mg PO DAILY 03/03/19 Hydroxyzine HCl 50 mg PO TID PRN 03/03/19 [place] Carbonate [Eskalith -] 150 mg PO DAILY 03/03/19 - Diagnosis (1) Alcohol dependence with uncomplicated withdrawal Current Visit: Yes Status: Acute (2) Heroin abuse Current Visit: Yes Status: Acute (3) Cocaine dependence Current Visit: Yes Status: Chronic Qualifiers: Substance use status: uncomplicated Qualified Code(s): F14.20 - Cocaine dependence, uncomplicated (4) Dehydration Current Visit: Yes Status: Acute (5) Encounter for monitoring Suboxone maintenance therapy Current Visit: Yes Status: Chronic (6) Nicotine dependence Current Visit: Yes Status: Chronic Qualifiers: Nicotine product type: cigarettes Substance use status: uncomplicated Qualified Code(s): F17.210 - Nicotine dependence, cigarettes, uncomplicated (7) Non-compliance Current Visit: Yes Status: Chronic (8) Renal insufficiency Current Visit: Yes Status: Chronic (9) Sedative hypnotic or anxiolytic dependence Current Visit: Yes Status: Chronic (10) Substance induced mood disorder Current Visit: Yes Status: Chronic (11) Schizoaffective disorder Current Visit: Yes Status: Chronic Qualifiers: Schizoaffective disorder type: unspecified Qualified Code(s): F25.9 - Schizoaffective disorder, unspecified - AMA Did Patient Leave Against Medical Advice: No
[2019-03-08] MEDS ORDERED: chlordiazePOXIDE HCL 10 MG CAPSULE PO ONE (05:00)
== END 2019-03-07 15:38 | disposition other institution (70) | DRG 773 ==
LOC: YASAS 11:14 → Y3N 13:55
PROVIDERS: ADMIT Surgery; ATTEND Surgery
PROC: HZ2ZZZZ Detoxification Services for Substance Abuse Treatment (ICD-10-PCS; principal; 2019-03-03)
DX: F10.230 Alcohol dependence with withdrawal, uncomplicated (principal); F11.20 Opioid dependence, uncomplicated; F13.20 Sedative, hypnotic or anxiolytic dependence, uncomplicated; F14.20 Cocaine dependence, uncomplicated; F17.210 Nicotine dependence, cigarettes, uncomplicated; F19.24 Other psychoactive substance dependence with psychoactive substance-induced mood disorder; F25.9 Schizoaffective disorder, unspecified; F31.81 Bipolar II disorder; E86.0 Dehydration; N28.9 Disorder of kidney and ureter, unspecified; G47.00 Insomnia, unspecified; Z91.19 Patient's noncompliance with other medical treatment and regimen; Z86.69 Personal history of other diseases of the nervous system and sense organs
CPT/HCPCS: 36415; 80053; 80178; 85027; 86593; 93005; 93010

== ENCOUNTER 2019-03-07 16:05 | Inpatient (IN) | payer OTHER ==
--- NOTE | 2019-03-07 14:38 | HP ---
[facility] Assess/Revision - Admission History Admitted to Rehab from: [facility] Date of Admission to Rehab: 03/07/2019 - Vital signs Vital Signs: NOTED; STABLE. - Findings Detox History & Physical reviewed: Yes Concur with findings: Yes Comments/Additional Findings: PATIENT'S MEDICAL / MEDICATION HISTORY REVIEWED PRIOR TO DISCHARGE FROM DETOX UNIT. PATIENT WAS DISCHARGED FROM DETOX UNIT TO BE TAKEN OVER TO REHAB UNIT IN STABLE MEDICAL CONDITION. Inpatient Rehab Admission - Rehab Decision to Admit Inpatient rehab admission?: Yes - Initial Determination Are CD services needed?: Yes Free of communicable disease: Yes Not in need of hospitalization: Yes - Rehab Admission Criteria Previous failed treatment: Yes Poor recovery environment: Yes Comorbidities: Yes Lacks judgement: No Patient is meeting Inpatient Rehab admission criteria:: Yes
[~2019-03-07 16:05] MED LIST changes: -MAG HYDROX/AL HYDROX/SIMETH 30 ML UNIT-DOSE CUP PO PRN; -MAGNESIUM CITRATE 300 ML BOTTLE PO PRN; -MAGNESIUM HYDROX 2400MG/30ML ORAL SUSPENSION 30 ML CUP PO PRN; -MELATONIN 5 MG TABLETS PO PRN; -NICOTINE 21 MG/24 HOURS TOPICAL PATCH TD SCH; -NICOTINE POLACRILEX 4 MG GUM BUC PRN; -PRENATAL VITAMINS W/ FOLIC ACID TABLET (FP) PO SCH; -THIAMINE HCL 100 MG TABLET (FP) PO SCH; +guaiFENesin 200 MG/10 ML 10 ML UNIT-DOSE CUPS PO PRN; -guaiFENesin/D-METHORPHAN HB 10 ML UNIT-DOSE CUPS PO PRN; -hydrOXYzine PAMOATE 50 MG CAPSULE (FP) PO PRN
[2019-03-07] MEDS: BUPRENORPHINE/NALOXONE 8 MG/2 MG FILM PACKET SL SCH (21:55)
[2019-03-07] MEDS: THIAMINE HCL 100 MG TABLET (FP) PO SCH (21:55)
[2019-03-08] MEDS: PRENATAL VITAMINS W/ FOLIC ACID TABLET (FP) PO SCH (10:13)
[2019-03-08] MEDS: BUPRENORPHINE/NALOXONE 8 MG/2 MG FILM PACKET SL SCH ×2 (10:14→21:43)
[2019-03-08] MEDS: THIAMINE HCL 100 MG TABLET (FP) PO SCH (21:43)
[2019-03-08] MEDS: MELATONIN 5 MG TABLETS PO PRN (21:43)
[2019-03-09] MEDS: PRENATAL VITAMINS W/ FOLIC ACID TABLET (FP) PO SCH (10:36)
[2019-03-09] MEDS: BUPRENORPHINE/NALOXONE 8 MG/2 MG FILM PACKET SL SCH ×2 (10:37→21:38)
--- NOTE | 2019-03-09 19:37 | PN ---
[facility] Progress Note Note: Psychiatry Attending's note : Mr Paulino is now at [address] Informed by medical MULTIFOCAL LENS INSPECTOR Zhane Pedroza. Medications resumed : Wellbutrin 100 mg po daily Abilify 5 mg po coy Continuity of care.
[2019-03-09] MEDS: THIAMINE HCL 100 MG TABLET (FP) PO SCH (21:36)
[2019-03-09] MEDS: MELATONIN 5 MG TABLETS PO PRN (21:37)
[2019-03-10] MEDS: PRENATAL VITAMINS W/ FOLIC ACID TABLET (FP) PO SCH (09:40)
[2019-03-10] MEDS: ARIPiprazole 5 MG TABLET (FP) PO SCH (09:40)
[2019-03-10] MEDS: BUPRENORPHINE/NALOXONE 8 MG/2 MG FILM PACKET SL SCH ×2 (10:00→22:02)
[2019-03-10] MEDS: buPROPion HCL 100 MG TABLET PO SCH (11:26)
[2019-03-10] MEDS: THIAMINE HCL 100 MG TABLET (FP) PO SCH (22:02)
[2019-03-10] MEDS: MELATONIN 5 MG TABLETS PO PRN (22:02)
[2019-03-11] MEDS: BUPRENORPHINE/NALOXONE 8 MG/2 MG FILM PACKET SL SCH ×2 (10:01→22:20)
[2019-03-11] MEDS: ARIPiprazole 5 MG TABLET (FP) PO SCH (10:01)
[2019-03-11] MEDS: PRENATAL VITAMINS W/ FOLIC ACID TABLET (FP) PO SCH (10:01)
[2019-03-11] MEDS: buPROPion HCL 100 MG TABLET PO SCH (10:01)
[2019-03-11] MEDS: THIAMINE HCL 100 MG TABLET (FP) PO SCH (22:20)
[2019-03-11] MEDS: MELATONIN 5 MG TABLETS PO PRN (22:21)
[2019-03-12 07:26] VITALS: BP 125/92; PULSE 56; TEMP 97.7
--- NOTE | 2019-03-12 09:49 | PN ---
[facility] Progress Note (SOAP) Subjective: Pt is a 48 y/o male admitted ot rehab from detox on 03/07/19 and requesting to leave treatment today due to personal errands. Pt is connected with [facility] for CD aftercare and Suboxone MAT. Reports he has been in the program for years. Pt has a Hx alcohol,bzo,cocaine, heroin use disorder and on Suboxone maintenance. 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 PMHx/psychx of Seizures, renal insufficiency and Depresion. Pt denies s/h/i. Objective: 03/12/19 16:23 Vital Signs - 24 hr 03/12/19 03/12/19 03/12/19 00:30 03:30 07:25 Temperature 97.7 F Pulse Rate 56 L Respiratory 18 18 18 Rate Blood Pressure 125/92 Home Medications Medication Instructions Recorded Aripiprazole [Abilify -] 5 mg PO DAILY 03/03/19 Bupropion HCl [Wellbutrin -] 100 mg PO DAILY 03/03/19 Hydroxyzine HCl 50 mg PO TID PRN 03/03/19 [place] Carbonate [Eskalith -] 150 mg PO DAILY 03/03/19 Aripiprazole [Abilify -] 5 mg PO DAILY #30 tablet 03/12/19 Bupropion HCl [Wellbutrin -] 100 mg PO DAILY #30 tablet 03/12/19 Alert o x 3. NAD Cardiac:s 1 s2, rrr Lungs:cta,alex., No sob Abdomen:Soft,+bs,nt,nd Extremities/Skin:No edema or cyanosis, Full ROM, Ambulates with steady gait 03/12/19 16:46 Assessment: 03/12/19 16:23 NAD [facility] Inpatient Services Medical - Diagnosis (1) Alcohol dependence Qualifiers: Substance use status: uncomplicated Qualified Code(s): F10.20 - Alcohol dependence, uncomplicated Status: Chronic (2) Heroin abuse Status: Chronic (3) Cocaine dependence Qualifiers: Substance use status: uncomplicated Qualified Code(s): F14.20 - Cocaine dependence, uncomplicated Status: Chronic (4) Encounter for monitoring Suboxone maintenance therapy Status: Chronic (5) Nicotine dependence Qualifiers: Nicotine product type: cigarettes Substance use status: uncomplicated Qualified Code(s): F17.210 - Nicotine dependence, cigarettes, uncomplicated Status: Chronic (6) Sedative hypnotic or anxiolytic dependence Status: Chronic (7) History of seizure Status: Suspected Initialized on 03/12/19 16:25 - END OF NOTE Plan: Pt signed out AMA Follow up with CD aftercare with [facility] as recommended. Follow up with your prescriber(s) at [facility] to continue suboxone MAT.
[2019-03-12] MEDS: BUPRENORPHINE/NALOXONE 8 MG/2 MG FILM PACKET SL SCH (10:12)
[2019-03-12] MEDS: PRENATAL VITAMINS W/ FOLIC ACID TABLET (FP) PO SCH (10:12)
[2019-03-12] MEDS: buPROPion HCL 100 MG TABLET PO SCH (10:12)
[2019-03-12] MEDS: ARIPiprazole 5 MG TABLET (FP) PO SCH (10:12)
--- NOTE | 2019-03-12 12:22 | PN ---
[facility] Progress Note Note: Patient is discharged today. Scripts for 30 days supply of medications(Abilify 5 mg/day, Wellbutrin 100 mg/day) are electronically transmitted to [facility] at [address] [place], [place] [id number]
== END 2019-03-12 12:15 | disposition left against medical advice (07) | DRG 770 ==
LOC: YASAS 16:05 → Y5N 16:06
PROVIDERS: ADMIT Neuromusculoskeletal Medicine & OMM; ATTEND Neuromusculoskeletal Medicine & OMM
PROC: HZ42ZZZ Group Counseling for Substance Abuse Treatment, Cognitive-Behavioral (ICD-10-PCS; principal; 2019-03-07)
DX: F10.20 Alcohol dependence, uncomplicated (principal); F11.20 Opioid dependence, uncomplicated; F13.20 Sedative, hypnotic or anxiolytic dependence, uncomplicated; F14.20 Cocaine dependence, uncomplicated; F17.210 Nicotine dependence, cigarettes, uncomplicated; Z86.69 Personal history of other diseases of the nervous system and sense organs

== ENCOUNTER 2019-04-22 09:16 | Inpatient (IN) | payer OTHER ==
[2019-04-22 10:28] VITALS: BMI 31.2
--- NOTE | 2019-04-22 11:56 | HP ---
CIWA Score Nausea/Vomitin Muscle Tremors: 2 Anxiety: 3 Agitation: 3 Paroxysmal Sweats: 1-Minimal Palms Moist Orientation: 0-Oriented Tacttile Disturbances: 1-Very Mild Itch/Numbness Auditory Disturbances: 0-None Visual Disturbances: 0-None Headache: 2-Mild CIWA-Ar Total Score: 14 - Admission Criteria OASAS Guidelines: Admission for Medically Managed Detox: Requires at least one of the followin. CIWA greater than 12 2. Seizures within the past 24 hours 3. Delirium tremens within the past 24 hours 4. Hallucinations within the past 24 hours 5. Acute intervention needed for co occurring medical disorder 6. Acute intervention needed for co occurring psychiatric disorder 7. Severe withdrawal that cannot be handled at a lower level of care (continued vomiting, continued diarrhea, abnormal vital signs) requiring intravenous medication and/or fluids 8. Admission ROS S - HPI Chief Complaint: i need help to stop drinking alcohol and drugs Allergies/Adverse Reactions: Allergies Allergy/AdvReac Type Severity Reaction Status Date / Time No Known Allergies Allergy Verified 04/22/19 10:15 History of Present Illness: this 49 years old male with alcohol,xanax,klonopin,heroin dependence,seeking detox,withdrawal symptom, seeking detox multiple admissions in detox ,last [facility] 03/03/19 to 03/07/19 detox,rehab to 03/12/19 keep relapsing seizure syncope also on suboxone I stop showed 8 mgs/2 mgs sl tid last filled on 04/13/19 for 30 days #90 longest sobriety 7 years schizophrenia plan for rehab after detox Exam Limitations: No Limitations - Ebola screening Have you traveled outside of the country in the last 21 days: No (N) Have you had contact with anyone from an Ebola affected area: No Do you have a fever: No - Review of Systems Constitutional: Loss of Appetite, Malaise, Night Sweats, Changes in sleep, Weakness EENT: reports: Tearing, Nose Congestion Respiratory: reports: No Symptoms reported Cardiac: reports: No Symptoms Reported GI: reports: Nausea, Poor Appetite, Vomiting, Abdominal cramping : reports: No Symptoms Reported Musculoskeletal: reports: Back Pain, Muscle Pain Integumentary: reports: Dryness Neuro: reports: Headache, Tremors Endocrine: reports: No Symptoms Reported Hematology: reports: No Symptoms Reported Psychiatric: reports: No Sypmtoms Reported, Judgement Intact, Mood/Affect Appropiate, Orientated x3, other (schizoprhrenia) Patient History - Patient Medical History Hx Anemia: No Hx Asthma: No Hx Chronic Obstructive Pulmonary Disease (COPD): No Hx Cancer: No Hx Cardiac Disorders: No Hx Congestive Heart Failure: No Hx Hypertension: No Hx Hypercholesterolemia: No Hx Pacemaker: No HX Cerebrovascular Accident: No Hx Seizures: No Hx Dementia: No Hx Diabetes: No Hx Gastrointestinal Disorders: No Hx Liver Disease: No Hx Genitourinary Disorders: No Hx Sexually Transmitted Disorders: No Hx Renal Disease (ESRD): No Hx Thyroid Disease: No Hx Human Immunodeficiency Virus (HIV): No (last 2019 negative) Hx Hepatitis C: No Hx Depression: Yes Hx Suicide Attempt: No Hx Bipolar Disorder: Yes Hx Schizophrenia: Yes Other Medical History: no sucididal,no homicidal - Patient Surgical History Past Surgical History: No Hx Neurologic Surgery: No Hx Cataract Extraction: No Hx Cardiac Surgery: No Hx Lung Surgery: No Hx Breast Surgery: No Hx Breast Biopsy: No Hx Abdominal Surgery: No Hx Appendectomy: No Hx Cholecystectomy: No Hx Genitourinary Surgery: No Hx Section: No Hx Orthopedic Surgery: No Anesthesia Reaction: No - PPD History Previous Implant?: Yes Documented Results: Negative w/proof Implanted On Prior R Admission?: Yes Date: 09/11/18 Results: 0mm PPD to be Administered?: No - Smoking Cessation Smoking history: Current every day smoker Have you smoked in the past 12 months: Yes Aproximately how many cigarettes per day: 10 Cigars Per Day: 0 Hx Chewing Tobacco Use: No Initiated information on smoking cessation: Yes 'Breaking Loose' booklet given: 04/22/19 - Substance & Tx. History Hx Alcohol Use: Yes Hx Substance Use: Yes Substance Use Type: Alcohol, Cocaine, Heroin, Tranquilizers Hx Substance Use Treatment: Yes ([facility] 0503/03/19 to 03/07/19,rehab 03/07/19 to ) - Substances abused Alcohol Substance route: Oral Frequency: Daily Amount used: 1/5 vodka and 1 six pack daily Age of first use: 17 Date of last use: 04/22/19 Alprazolam (Xanax) Substance route: Oral Frequency: 1-2 times per week Amount used: 2 mg Age of first use: 34 Date of last use: 04/19/19 Cocaine Substance route: Inhalation Frequency: 3-6 times per week Amount used: $50 Age of first use: 19 Date of last use: 04/22/19 Heroin Substance route: Inhalation Frequency: 1-3 times last 30 days Amount used: 1 bag Age of first use: 19 Date of last use: 04/18/19 Benzodiazepine (Klonopin) Substance route: Oral Frequency: 1-2 times per week Amount used: 2-3 PILLS Age of first use: 34 Date of last use: 04/19/19 Admission Physical Exam S - Vital Signs Vital Signs: Vital Signs - 24 hr 04/22/19 10:18 Temperature 97.1 F L Pulse Rate 74 Respiratory 18 Rate Blood Pressure 128/76 - Physical General Appearance: Yes: Moderate Distress, Tremorous, Irritable, Sweating, Anxious HEENTM: Yes: Normal ENT Inspection, EMMANUEL, Pharynx Normal Respiratory: Yes: Lungs Clear, Normal Breath Sounds, No Respiratory Distress Neck: Yes: Within Normal Limits, Supple, Trachea in good position Breast: Yes: Within Normal Limits Cardiology: Yes: Within Normal Limits, Regular Rhythm, Regular Rate, S1, S2 Abdominal: Yes: Within Normal Limits, Normal Bowel Sounds, Non Tender, Flat, Soft Genitourinary: Yes: Within Normal Limits Back: Yes: Muscle Spasm Musculoskeletal: Yes: Back pain, Muscle Pain Extremities: Yes: Tremors Neurological: Yes: Within Normal Limits, die cast patternmaker II-XII NML intact, Fully Oriented, Alert, Motor Strength 5/5 Integumentary: Yes: Dry Lymphatic: Yes: Within Normal Limits - Diagnostic (1) Alcohol dependence with uncomplicated withdrawal Current Visit: Yes Status: Acute (2) Dehydration Current Visit: No Status: Acute (3) Cannabis dependence Current Visit: No Status: Chronic (4) Cocaine abuse Current Visit: No Status: Chronic (5) Heroin abuse Current Visit: No Status: Chronic (6) Nicotine dependence Current Visit: No Status: Chronic Qualifiers: Nicotine product type: cigarettes Substance use status: uncomplicated Qualified Code(s): F17.210 - Nicotine dependence, cigarettes, uncomplicated Comment: declines gum or patch (7) Schizoaffective disorder Current Visit: Yes Status: Chronic Qualifiers: Schizoaffective disorder type: unspecified Qualified Code(s): F25.9 - Schizoaffective disorder, unspecified Comment: As per existing records and self-report.Chronic non-adherence to OPD care and mood stabilizers. (8) History of seizure Current Visit: No Status: Suspected (9) Encounter for monitoring Suboxone maintenance therapy Current Visit: No Status: Chronic Cleared for Admission [facility] - Detox or Rehab [facility] Level of Care: Medically Managed Detox Regimen/Protocol: Librium Breathalyzer - Breathalyzer Breathalyzer: 0.083 Urine Drug Screen - Test Device Lot number: [id number] Expiration date: 12/22/20 - Control Is test valid?: Yes - Results Drug screen NEGATIVE: Yes Urine drug screen results: ZOHRA-Cocaine Inpatient Rehab Admission - Rehab Decision to Admit Inpatient rehab admission?: No
[2019-04-22] MEDS ORDERED: MENTHOL/PHENOL 1 EACH UD MM PRN (12:14)
[2019-04-22] MEDS ORDERED: hydrOXYzine PAMOATE 25 MG CAPSULE (FP) PO PRN (12:14)
[2019-04-22] MEDS ORDERED: MAG HYDROX/AL HYDROX/SIMETH 30 ML UNIT-DOSE CUP PO PRN (12:14)
[2019-04-22] MEDS ORDERED: IBUPROFEN 400 MG TABLET (FP) PO PRN (12:14)
[2019-04-22] MEDS ORDERED: MELATONIN 5 MG TABLETS PO PRN (12:14)
[2019-04-22] MEDS ORDERED: ACETAMINOPHEN 325 MG TABLET (FP) PO PRN ×2 (12:14)
[2019-04-22] MEDS ORDERED: MAGNESIUM CITRATE 300 ML BOTTLE PO PRN (12:14)
[2019-04-22] MEDS ORDERED: chlordiazePOXIDE HCL 25 MG CAPSULE PO PRN (12:14)
[2019-04-22] MEDS ORDERED: METHOCARBAMOL 500 MG TABLET PO PRN (12:14)
[2019-04-22] MEDS ORDERED: MAGNESIUM HYDROX 2400MG/30ML ORAL SUSPENSION 30 ML CUP PO PRN (12:14)
[2019-04-22] MEDS ORDERED: BISMUTH SUBSALICYLATE 524 MG/30 ML UD PO PRN (12:14)
[2019-04-22] MEDS: BUPRENORPHINE/NALOXONE 8 MG/2 MG FILM PACKET SL SCH ×2 (13:06→22:21)
--- NOTE | 2019-04-22 16:01 | CONSULT ---
[facility] Psychiatric Consult - Data Date of interview: 04/22/19 Admission source: [facility] Identifying data: Patient is a 49 year old single male, father of two, unemployed, domiciled, and is supported by Welfare benefits. This is one of multiple admissions for patient. Patient admitted to for alcohol and cocaine dependence. Substance Abuse History: Smoking Cessation. Smoking history: Current every day smoker. Have you smoked in the past 12 months: Yes. Aproximately how many cigarettes per day: 10. Cigars Per Day: 0. Hx Chewing Tobacco Use: No. Initiated information on smoking cessation: Yes. 'Breaking Loose' booklet given : 04/22/19. - Substance & Tx. History. Hx Alcohol Use: Yes. Hx Substance Use : Yes. Substance Use Type: Alcohol, Cocaine, Heroin, Tranquilizers. Hx Substance Use Treatment: Yes ([facility] 0503/03/19 to 03/07/19,rehab 03/07/19 to ). - Substances abused. Alcohol. Substance route: Oral. Frequency: Daily. Amount used: 1/5 vodka and 1 six pack daily. Age of first use: 17. Date of last use: 04/22/19. Alprazolam (Xanax). Substance route: Oral. Frequency: 1-2 times per week. Amount used: 2 mg. Age of first use: 34. Date of last use: 04/19/19. Cocaine. Substance route: Inhalation. Frequency: 3- 6 times per week. Amount used: $50. Age of first use: 19. Date of last use: 04/22/19. Heroin. Substance route: Inhalation. Frequency: 1-3 times last 30 days. Amount used: 1 bag. Age of first use: 19. Date of last use: . Benzodiazepine (Klonopin). Substance route: Oral. Frequency: 1-2 times per week. Amount used: 2-3 PILLS. Age of first use: 34. Date of last use: 04/19/19 Medical History: Medical profile is remarkable for chronic lumbar pain, antecedent of a withdrwal-related seizure (years ago) and a history of renal insufficiency. Psychiatric History: Patient reports first receiving psychiatric care as a child due to his history of disruptive behavior and restlessness as a child. Reports being diagnosed with ADHD. Stated to ghost writer that he received psychiatric care throughout his years in school as a child/adolescent/teenager but did not accept psychotropic medications because his mother did not want him taking medications. Mr. Paulino reports history of multiple psychiatric hospitalizations most recently at [facility] earlier this year after reporting depression. Reports being diagnosed with bipolar/schizophrenia as an adult. Reports seeing a psychiatrist in [place], [place] who prescribes him abilify + wellbutrin and other psychotropic medications he is unable to recall. As per previous notes patient has been prescribed vistaril 50mg TID + [place] 150mg HS. Mr. Paulino reports medication noncompliance for one week. Patient denies h/ o suicide attempt. . At present, patient presents as a fatigue and mildly sedated. Physical/Sexual Abuse/Trauma History: denies. Mental Status Exam - Mental Status Exam Alert and Oriented to: Time, Place, Person Cognitive Function: Good Patient Appearance: Well Groomed Mood: Withdrawn Affect: Mood Congruent Patient Behavior: Fatigued, Cooperative Speech Pattern: Appropriate Voice Loudness: Normal Thought Process: Goal Oriented Thought Disorder: Not Present Hallucinations: Denies Suicidal Ideation: Denies Homicidal Ideation: Denies Insight/Judgement: Poor Sleep: Fair Appetite: Fair Muscle strength/Tone: Normal Gait/Station: Normal Psychiatric Findings - Problem List ([place] 1, 2,3) (1) Alcohol dependence with uncomplicated withdrawal Current Visit: Yes Status: Acute (2) Cocaine dependence Current Visit: Yes Status: Chronic Qualifiers: Substance use status: uncomplicated Qualified Code(s): F14.20 - Cocaine dependence, uncomplicated (3) Opioid dependence on agonist therapy Current Visit: Yes Status: Chronic (4) Schizoaffective disorder Current Visit: Yes Status: Chronic Qualifiers: Schizoaffective disorder type: unspecified Qualified Code(s): F25.9 - Schizoaffective disorder, unspecified Comment: As per existing records and self-report.Chronic non-adherence to OPD care and mood stabilizers. (5) Substance induced mood disorder Current Visit: Yes Status: Acute - Initial Treatment Plan Initial Treatment Plan: Psychoeducation provided. Detoxification in progress. Will order Abilify 5mg daily. Patient refusing to resume wellbutrin at this time. Benefits and side effects discussed.
[2019-04-22] MEDS: chlordiazePOXIDE HCL 25 MG CAPSULE PO SCH ×2 (17:31→22:21)
[2019-04-22] MEDS: THIAMINE HCL 100 MG TABLET (FP) PO SCH (22:21)
[2019-04-23] MEDS: chlordiazePOXIDE HCL 25 MG CAPSULE PO SCH ×4 (05:42→22:10)
[2019-04-23] MEDS: BUPRENORPHINE/NALOXONE 8 MG/2 MG FILM PACKET SL SCH ×3 (05:42→22:10)
--- NOTE | 2019-04-23 10:18 | PN ---
S CIWA - CIWA Score Nausea/Vomitin-No Nausea/No Vomiting Muscle Tremors: 3 Anxiety: 3 Agitation: 4-Moderately Restless Paroxysmal Sweats: 3 Orientation: 0-Oriented Tacttile Disturbances: 0-None Auditory Disturbances: 0-None Visual Disturbances: 0-None Headache: 0-None Present CIWA-Ar Total Score: 13 [facility] Progress Note (SOAP) Subjective: shakes sweats interrupted sleep body aches nausea Objective: 04/23/19 10:17 Vital Signs Temperature 96.3 F L 04/23/19 09:13 Pulse Rate 62 04/23/19 09:13 Respiratory Rate 16 04/23/19 09:13 Blood Pressure 105/59 L 04/23/19 09:13 O2 Sat by Pulse Oximetry (%) labs pending aaox3 ambulating no acute distress Assessment: 04/23/19 10:18 withdrawals sx Plan: continue detox increase fluids pending labs
[2019-04-23] MEDS: ARIPiprazole 5 MG TABLET (FP) PO SCH (10:32)
[2019-04-23] MEDS: PRENATAL VITAMINS W/ FOLIC ACID TABLET (FP) PO SCH (10:32)
[2019-04-23 11:48] LABS: HEMATOCRIT 42.4 % (35.4-49); HEMOGLOBIN 14.1 GM/dL (11.7-16.9); MCH 32.5 pg (25.7-33.7); MCHC 33.3 g/dl (32.0-35.9); MEAN CELL VOLUME 97.6 fl (80-96); MEAN PLT VOLUME 8.3 fl (7.5-11.1); PLATELET COUNT 249 K/MM3 (134-434); RBC 4.34 M/mm3 (4.00-5.60); WHITE BLOOD COUNT 5.6 K/mm3 (4.0-10.0)
[2019-04-23 12:22] LABS: ALBUMIN 3.6 g/dl (3.4-5.0); BILIRUBIN,TOTAL 0.8 mg/dL (0.2-1); BLOOD UREA NITROGEN 16.6 mg/dL (7-18); CALCIUM 9.2 mg/dL (8.5-10.1); CREATININE 1.5 mg/dL (0.55-1.3); POTASSIUM 4.2 mmol/L (3.5-5.1); TOT PROT 6.7 g/dl (6.4-8.2)
[2019-04-23 13:03] LABS: PH,URINE 5.5 (5.0-8.0); URINE APPEARANCE CLEAR; URINE BILIRUBIN NEGATIVE (NEGATIVE); URINE COLOR YELLOW; URINE GLUCOSE (UA) NEGATIVE (NEGATIVE); URINE KETONE NEGATIVE (NEGATIVE); URINE LEUK ESTERASE NEGATIVE (NEGATIVE); URINE NITRITE NEGATIVE (NEGATIVE); URINE PROTEIN NEGATIVE (NEGATIVE); URINE UROBILINOGEN 0.2 mg/dL (0.2-1.0)
[2019-04-23] MEDS: THIAMINE HCL 100 MG TABLET (FP) PO SCH (22:10)
[2019-04-24] MEDS: BUPRENORPHINE/NALOXONE 8 MG/2 MG FILM PACKET SL SCH ×3 (07:09→22:08)
[2019-04-24] MEDS: chlordiazePOXIDE HCL 25 MG CAPSULE PO SCH ×4 (07:09→22:07)
[2019-04-24] MEDS: PRENATAL VITAMINS W/ FOLIC ACID TABLET (FP) PO SCH (10:21)
[2019-04-24] MEDS: ARIPiprazole 5 MG TABLET (FP) PO SCH (10:22)
--- NOTE | 2019-04-24 12:03 | PN ---
S CIWA - CIWA Score Nausea/Vomitin-No Nausea/No Vomiting Muscle Tremors: 2 Anxiety: 2 Agitation: 2 Paroxysmal Sweats: 2 Orientation: 0-Oriented Tacttile Disturbances: 0-None Auditory Disturbances: 0-None Visual Disturbances: 0-None Headache: 0-None Present CIWA-Ar Total Score: 8 S Progress Note (SOAP) Subjective: irritable agitation interrupted sleep tired Objective: 04/24/19 12:02 Vital Signs Temperature 97.5 F L 04/24/19 06:00 Pulse Rate 60 04/24/19 06:00 Respiratory Rate 18 04/24/19 06:00 Blood Pressure 106/52 L 04/24/19 06:00 O2 Sat by Pulse Oximetry (%) Laboratory Tests 04/23/19 04/23/19 04/23/19 08:45 08:50 08:50 WBC 5.6 RBC 4.34 Hgb 14.1 Hct 42.4 MCV 97.6 H MCH 32.5 MCHC 33.3 RDW 15.0 Plt Count 249 D MPV 8.3 Sodium 144 Potassium 4.2 Chloride 107 Carbon Dioxide 34 H Anion Gap 3 L BUN 16.6 Creatinine 1.5 H Est GFR (CKD-EPI)AfAm 62.02 Est GFR (CKD-EPI)NonAf 53.51 Random Glucose 104 Calcium 9.2 Total Bilirubin 0.8 AST 25 ALT 26 Alkaline Phosphatase 95 Total Protein 6.7 Albumin 3.6 Urine Color Yellow Urine Appearance Clear Urine pH 5.5 Ur Specific [employer] 1.024 Urine Protein Negative Urine Glucose (UA) Negative Urine Ketones Negative Urine Blood Negative Urine Nitrite Negative Urine Bilirubin Negative Urine Urobilinogen 0.2 Ur Leukocyte Esterase Negative RPR Titer HIV 1&2 Antibody Screen HIV P24 Antigen 04/23/19 04/23/19 08:50 08:50 WBC RBC Hgb Hct MCV MCH MCHC RDW Plt Count MPV Sodium Potassium Chloride Carbon Dioxide Anion Gap BUN Creatinine Est GFR (CKD-EPI)AfAm Est GFR (CKD-EPI)NonAf Random Glucose Calcium Total Bilirubin AST ALT Alkaline Phosphatase Total Protein Albumin Urine Color Urine Appearance Urine pH Ur Specific [employer] Urine Protein Urine Glucose (UA) Urine Ketones Urine Blood Urine Nitrite Urine Bilirubin Urine Urobilinogen Ur Leukocyte Esterase RPR Titer Nonreactive HIV 1&2 Antibody Screen Negative HIV P24 Antigen Negative labs noted aaox3 ambulating no acute distress Assessment: 04/24/19 12:02 withdrawals Plan: continue detox increase fluids
[2019-04-24] MEDS: THIAMINE HCL 100 MG TABLET (FP) PO SCH (22:07)
[2019-04-25] MEDS ORDERED: chlordiazePOXIDE HCL 10 MG CAPSULE PO PRN
[2019-04-25] MEDS: chlordiazePOXIDE HCL 10 MG CAPSULE PO SCH ×4 (05:23→22:22)
[2019-04-25] MEDS: BUPRENORPHINE/NALOXONE 8 MG/2 MG FILM PACKET SL SCH ×3 (05:23→22:22)
--- NOTE | 2019-04-25 10:43 | PN ---
[facility] CIWA - CIWA Score Nausea/Vomitin-No Nausea/No Vomiting Muscle Tremors: 3 Anxiety: 3 Agitation: 3 Paroxysmal Sweats: 2 Orientation: 0-Oriented Tacttile Disturbances: 0-None Auditory Disturbances: 0-None Visual Disturbances: 0-None Headache: 0-None Present CIWA-Ar Total Score: 11 S Progress Note (SOAP) Subjective: tired irritable agitation sweats Objective: 04/25/19 10:43 Vital Signs Temperature 97.7 F 04/25/19 09:21 Pulse Rate 64 04/25/19 09:21 Respiratory Rate 18 04/25/19 09:21 Blood Pressure 119/66 04/25/19 09:21 O2 Sat by Pulse Oximetry (%) Laboratory Tests 04/23/19 04/23/19 04/23/19 08:45 08:50 08:50 WBC 5.6 RBC 4.34 Hgb 14.1 Hct 42.4 MCV 97.6 H MCH 32.5 MCHC 33.3 RDW 15.0 Plt Count 249 D MPV 8.3 Sodium 144 Potassium 4.2 Chloride 107 Carbon Dioxide 34 H Anion Gap 3 L BUN 16.6 Creatinine 1.5 H Est GFR (CKD-EPI)AfAm 62.02 Est GFR (CKD-EPI)NonAf 53.51 Random Glucose 104 Calcium 9.2 Total Bilirubin 0.8 AST 25 ALT 26 Alkaline Phosphatase 95 Total Protein 6.7 Albumin 3.6 Urine Color Yellow Urine Appearance Clear Urine pH 5.5 Ur Specific [place] 1.024 Urine Protein Negative Urine Glucose (UA) Negative Urine Ketones Negative Urine Blood Negative Urine Nitrite Negative Urine Bilirubin Negative Urine Urobilinogen 0.2 Ur Leukocyte Esterase Negative RPR Titer HIV 1&2 Antibody Screen HIV P24 Antigen 04/23/19 04/23/19 08:50 08:50 WBC RBC Hgb Hct MCV MCH MCHC RDW Plt Count MPV Sodium Potassium Chloride Carbon Dioxide Anion Gap BUN Creatinine Est GFR (CKD-EPI)AfAm Est GFR (CKD-EPI)NonAf Random Glucose Calcium Total Bilirubin AST ALT Alkaline Phosphatase Total Protein Albumin Urine Color Urine Appearance Urine pH Ur Specific [place] Urine Protein Urine Glucose (UA) Urine Ketones Urine Blood Urine Nitrite Urine Bilirubin Urine Urobilinogen Ur Leukocyte Esterase RPR Titer Nonreactive HIV 1&2 Antibody Screen Negative HIV P24 Antigen Negative aaox3 ambulating no acute distress Assessment: 04/25/19 10:43 withdrawals Plan: continue detox increase fluids
[2019-04-25] MEDS: PRENATAL VITAMINS W/ FOLIC ACID TABLET (FP) PO SCH (11:28)
[2019-04-25] MEDS: ARIPiprazole 5 MG TABLET (FP) PO SCH (11:29)
[2019-04-25] MEDS: THIAMINE HCL 100 MG TABLET (FP) PO SCH (22:22)
[2019-04-26] MEDS: chlordiazePOXIDE HCL 10 MG CAPSULE PO SCH ×2 (07:08→17:43)
[2019-04-26] MEDS: BUPRENORPHINE/NALOXONE 8 MG/2 MG FILM PACKET SL SCH ×3 (07:08→22:19)
--- NOTE | 2019-04-26 10:50 | PN ---
S CIWA - CIWA Score Nausea/Vomitin-No Nausea/No Vomiting Muscle Tremors: 2 Anxiety: 1-Mildly Anxious Agitation: 1-Slight > Activity Paroxysmal Sweats: No Perspiration Orientation: 0-Oriented Tacttile Disturbances: 0-None Auditory Disturbances: 0-None Visual Disturbances: 0-None Headache: 0-None Present CIWA-Ar Total Score: 4 BHS Progress Note (SOAP) Subjective: irritable interrupted sleep Objective: 04/26/19 10:49 Vital Signs Temperature 97 F L 04/26/19 09:43 Pulse Rate 62 04/26/19 09:43 Respiratory Rate 18 04/26/19 09:43 Blood Pressure 129/77 04/26/19 09:43 O2 Sat by Pulse Oximetry (%) aaox3 ambulating no acute distress Assessment: 04/26/19 10:50 withdrawals Plan: continue detox d/c in am
[2019-04-26] MEDS: PRENATAL VITAMINS W/ FOLIC ACID TABLET (FP) PO SCH (14:23)
[2019-04-26] MEDS: ARIPiprazole 5 MG TABLET (FP) PO SCH (14:23)
[2019-04-26] MEDS: THIAMINE HCL 100 MG TABLET (FP) PO SCH (22:19)
[2019-04-27] MEDS ORDERED: chlordiazePOXIDE HCL 10 MG CAPSULE PO ONE (05:00)
--- NOTE | 2019-04-27 08:26 | DS ---
[facility] Detox Discharge Summary Admission Date: 04/22/19 Discharge Date: 04/27/19 - History Present History: Alcohol Dependence, Cannabis Dependence, Cocaine Dependence - Physical Exam Results Vital Signs: Vital Signs Temperature 97.5 F L 04/27/19 07:36 Pulse Rate 57 L 04/27/19 07:36 Respiratory Rate 18 04/27/19 07:36 Blood Pressure 116/61 04/27/19 07:36 O2 Sat by Pulse Oximetry (%) Pertinent Admission Physical Exam Findings: pt was admitted in withdrawals Laboratory Tests 04/23/19 04/23/19 04/23/19 08:45 08:50 08:50 WBC 5.6 RBC 4.34 Hgb 14.1 Hct 42.4 MCV 97.6 H MCH 32.5 MCHC 33.3 RDW 15.0 Plt Count 249 D MPV 8.3 Sodium 144 Potassium 4.2 Chloride 107 Carbon Dioxide 34 H Anion Gap 3 L BUN 16.6 Creatinine 1.5 H Est GFR (CKD-EPI)AfAm 62.02 Est GFR (CKD-EPI)NonAf 53.51 Random Glucose 104 Calcium 9.2 Total Bilirubin 0.8 AST 25 ALT 26 Alkaline Phosphatase 95 Total Protein 6.7 Albumin 3.6 Urine Color Yellow Urine Appearance Clear Urine pH 5.5 Ur Specific [place] 1.024 Urine Protein Negative Urine Glucose (UA) Negative Urine Ketones Negative Urine Blood Negative Urine Nitrite Negative Urine Bilirubin Negative Urine Urobilinogen 0.2 Ur Leukocyte Esterase Negative RPR Titer HIV 1&2 Antibody Screen HIV P24 Antigen 04/23/19 04/23/19 08:50 08:50 WBC RBC Hgb Hct MCV MCH MCHC RDW Plt Count MPV Sodium Potassium Chloride Carbon Dioxide Anion Gap BUN Creatinine Est GFR (CKD-EPI)AfAm Est GFR (CKD-EPI)NonAf Random Glucose Calcium Total Bilirubin AST ALT Alkaline Phosphatase Total Protein Albumin Urine Color Urine Appearance Urine pH Ur Specific [place] Urine Protein Urine Glucose (UA) Urine Ketones Urine Blood Urine Nitrite Urine Bilirubin Urine Urobilinogen Ur Leukocyte Esterase RPR Titer Nonreactive HIV 1&2 Antibody Screen Negative HIV P24 Antigen Negative today pt is aaox3 ambulating no acute distress - Treatment Hospital Course: Detox Protocol Followed, Detoxed Safely, Responded well, Discharged Condition Good, Rehab Referral Accepted - Medication Discharge Medications: Ambulatory Orders Hydroxyzine HCl 50 mg PO TID PRN 03/03/19 [place] Carbonate [Eskalith -] 150 mg PO DAILY 03/03/19 Aripiprazole [Abilify -] 5 mg PO DAILY #30 tablet 03/12/19 Bupropion HCl [Wellbutrin -] 100 mg PO DAILY #30 tablet 03/12/19 Buprenorphine HCl/Naloxone HCl [Suboxone 8 mg-2 mg Sl Tablets] 1 each SL TID - Diagnosis (1) Alcohol dependence with uncomplicated withdrawal Current Visit: Yes Status: Chronic (2) Substance induced mood disorder Current Visit: Yes Status: Acute (3) Cocaine dependence Current Visit: Yes Status: Chronic Qualifiers: Substance use status: uncomplicated Qualified Code(s): F14.20 - Cocaine dependence, uncomplicated (4) Opioid dependence on agonist therapy Current Visit: Yes Status: Chronic (5) Schizoaffective disorder Current Visit: Yes Status: Chronic Qualifiers: Schizoaffective disorder type: unspecified Qualified Code(s): F25.9 - Schizoaffective disorder, unspecified (6) Dehydration Current Visit: No Status: Acute (7) Insomnia Current Visit: No Status: Acute (8) Insomnia secondary to depression with anxiety Current Visit: No Status: Acute (9) Substance-induced sleep disorder Current Visit: No Status: Acute (10) Substance-induced sleep disorder Current Visit: No Status: Acute (11) Weight loss Current Visit: No Status: Acute (12) Anxiety Current Visit: No Status: Chronic (13) Cannabis dependence Current Visit: No Status: Chronic (14) Cocaine abuse Current Visit: No Status: Chronic (15) Depression Current Visit: No Status: Chronic Qualifiers: Depression Type: unspecified Qualified Code(s): F32.9 - Major depressive disorder, single episode, unspecified (16) Encounter for monitoring Suboxone maintenance therapy Current Visit: No Status: Chronic (17) Heroin abuse Current Visit: No Status: Chronic (18) Insomnia Current Visit: No Status: Chronic (19) Low back pain Current Visit: No Status: Chronic Qualifiers: Chronicity: unspecified Back pain laterality: unspecified Sciatica presence: unspecified whether sciatica present Qualified Code(s): M54.5 - Low back pain (20) Nicotine dependence Current Visit: No Status: Chronic Qualifiers: Nicotine product type: cigarettes Substance use status: uncomplicated Qualified Code(s): F17.210 - Nicotine dependence, cigarettes, uncomplicated (21) Non-compliance Current Visit: No Status: Chronic (22) Renal insufficiency Current Visit: No Status: Chronic (23) Sedative hypnotic or anxiolytic dependence Current Visit: No Status: Chronic (24) Substance induced mood disorder Current Visit: No Status: Chronic (25) History of seizure Current Visit: No Status: Suspected - AMA Did Patient Leave Against Medical Advice: No
[2019-04-27] MEDS: BUPRENORPHINE/NALOXONE 8 MG/2 MG FILM PACKET SL SCH ×2 (08:37→14:23)
[2019-04-27] MEDS: ARIPiprazole 5 MG TABLET (FP) PO SCH (10:47)
[2019-04-27] MEDS: PRENATAL VITAMINS W/ FOLIC ACID TABLET (FP) PO SCH (10:48)
[2019-04-27 13:09] VITALS: BP 145/80; PULSE 54; TEMP 96.8
== END 2019-04-27 15:04 | disposition other institution (70) | DRG 773 ==
LOC: YASAS 09:16 → Y6N 12:35
PROVIDERS: ADMIT Surgery; ATTEND Surgery
PROC: HZ2ZZZZ Detoxification Services for Substance Abuse Treatment (ICD-10-PCS; principal; 2019-04-22)
DX: F10.230 Alcohol dependence with withdrawal, uncomplicated (principal); F11.20 Opioid dependence, uncomplicated; F13.20 Sedative, hypnotic or anxiolytic dependence, uncomplicated; F14.20 Cocaine dependence, uncomplicated; F12.20 Cannabis dependence, uncomplicated; F17.210 Nicotine dependence, cigarettes, uncomplicated; F19.282 Other psychoactive substance dependence with psychoactive substance-induced sleep disorder; F19.24 Other psychoactive substance dependence with psychoactive substance-induced mood disorder; F25.9 Schizoaffective disorder, unspecified; F51.05 Insomnia due to other mental disorder; F31.9 Bipolar disorder, unspecified; F41.9 Anxiety disorder, unspecified; N28.9 Disorder of kidney and ureter, unspecified; E86.0 Dehydration; R63.4 Abnormal weight loss; Z68.31 Body mass index [BMI] 31.0-31.9, adult; Z51.81 Encounter for therapeutic drug level monitoring
CPT/HCPCS: 36415; 80053; 81003; 85027; 86593; 87389

== ENCOUNTER 2019-04-27 15:14 | Inpatient (IN) | payer OTHER ==
[2019-04-27] MEDS ORDERED: MAGNESIUM CITRATE 300 ML BOTTLE PO PRN (18:58)
[2019-04-27] MEDS ORDERED: MENTHOL/PHENOL 1 EACH UD MM PRN (18:58)
[2019-04-27] MEDS ORDERED: NICOTINE POLACRILEX 2 MG GUM BUC PRN (18:58)
[2019-04-27] MEDS ORDERED: P-EPHED 60MG/TRIPROLIDI 2.5MG TABLET PO PRN (18:58)
[2019-04-27] MEDS ORDERED: guaiFENesin 200 MG/10 ML 10 ML UNIT-DOSE CUPS PO PRN (18:58)
[2019-04-27] MEDS ORDERED: LOPERAMIDE HCL 2 MG CAPSULE PO PRN (18:58)
[2019-04-27] MEDS ORDERED: MAG HYDROX/AL HYDROX/SIMETH 30 ML UNIT-DOSE CUP PO PRN (18:58)
[2019-04-27] MEDS ORDERED: hydrOXYzine PAMOATE 25 MG CAPSULE (FP) PO PRN (18:58)
[2019-04-27] MEDS ORDERED: IBUPROFEN 400 MG TABLET (FP) PO PRN (18:58)
[2019-04-27] MEDS ORDERED: ACETAMINOPHEN 325 MG TABLET (FP) PO PRN (18:58)
[2019-04-27] MEDS ORDERED: MAGNESIUM HYDROX 2400MG/30ML ORAL SUSPENSION 30 ML CUP PO PRN (18:58)
--- NOTE | 2019-04-27 18:58 | HP ---
ARSALAN HANNA[facility] Rehab Assess/Revision - Admission History Admitted to Rehab from: [facility] [place] Date of Admission to Rehab: 04/27/19 - Vital signs Vital Signs: Vital Signs Period Temp Pulse Resp BP Sys/Garcia Pulse Ox Last 24 Hr 98.0 F-98.2 F 53-53 18-18 119-119/83-83 - Findings Detox History & Physical reviewed: Yes Concur with findings: Yes Inpatient Rehab Admission - Rehab Decision to Admit Inpatient rehab admission?: Yes - Initial Determination Are CD services needed?: Yes Free of communicable disease: Yes Not in need of hospitalization: Yes - Rehab Admission Criteria Previous failed treatment: Yes Poor recovery environment: Yes Comorbidities: Yes Lacks judgement: Yes Patient is meeting Inpatient Rehab admission criteria:: Yes
[2019-04-27] MEDS ORDERED: THIAMINE HCL 100 MG TABLET (FP) PO SCH (22:00)
[2019-04-27] MEDS ORDERED: MELATONIN 5 MG TABLETS PO PRN (22:00)
[2019-04-28 06:52] VITALS: TEMP 97.7
[2019-04-28] MEDS ORDERED: NICOTINE 14 MG/24 HOURS TOPICAL PATCH TD SCH (10:00)
[2019-04-28] MEDS ORDERED: PRENATAL VITAMINS W/ FOLIC ACID TABLET (FP) PO SCH (10:00)
[2019-04-28 13:07] VITALS: BP 125/79; PULSE 57
== END 2019-04-28 12:27 | disposition left against medical advice (07) | DRG 770 ==
LOC: YASAS 15:14 → Y5N 15:15
PROVIDERS: ADMIT Neuromusculoskeletal Medicine & OMM; ATTEND Neuromusculoskeletal Medicine & OMM
PROC: HZ42ZZZ Group Counseling for Substance Abuse Treatment, Cognitive-Behavioral (ICD-10-PCS; principal; 2019-04-27)
DX: F10.20 Alcohol dependence, uncomplicated (principal); F11.20 Opioid dependence, uncomplicated; F13.20 Sedative, hypnotic or anxiolytic dependence, uncomplicated; F14.20 Cocaine dependence, uncomplicated; F17.210 Nicotine dependence, cigarettes, uncomplicated; F31.9 Bipolar disorder, unspecified; F25.9 Schizoaffective disorder, unspecified; E86.0 Dehydration; Z51.81 Encounter for therapeutic drug level monitoring

== ENCOUNTER 2019-06-05 18:52 | Inpatient (IN) | payer OTHER ==
[2019-06-05 20:49] VITALS: BMI 30.9
--- NOTE | 2019-06-05 23:57 | HP ---
CIWA Score Nausea/Vomitin Muscle Tremors: 3 Anxiety: 2 Agitation: 0-Normal Activity Paroxysmal Sweats: 3 Orientation: 0-Oriented Tacttile Disturbances: 0-None Auditory Disturbances: 0-None Visual Disturbances: 0-None Headache: 3-Moderate CIWA-Ar Total Score: 13 - Admission Criteria OASAS Guidelines: Admission for Medically Managed Detox: Requires at least one of the followin. CIWA greater than 12 2. Seizures within the past 24 hours 3. Delirium tremens within the past 24 hours 4. Hallucinations within the past 24 hours 5. Acute intervention needed for co occurring medical disorder 6. Acute intervention needed for co occurring psychiatric disorder 7. Severe withdrawal that cannot be handled at a lower level of care (continued vomiting, continued diarrhea, abnormal vital signs) requiring intravenous medication and/or fluids 8. Admitting History and Physical - Smoking History Smoking history: Current every day smoker Have you smoked in the past 12 months: Yes Aproximately how many cigarettes per day: 10 - Alcohol/Substance Use Hx Alcohol Use: Yes Admission ROS [facility] Chief Complaint: Seeking admission to detox from alcohol Allergies/Adverse Reactions: Allergies Allergy/AdvReac Type Severity Reaction Status Date / Time No Known Allergies Allergy Verified 06/05/19 20:42 History of Present Illness: 49 years old male with a long history of of alcohol dependence is seeking admission to detox. Patient has been in previous detox and reports 7 years of sobriety. He has denies past medical history and reports psych. of Bipolar, schizophrenia and depression. Patient 's urine was positive for only cocaine Exam Limitations: No Limitations - Ebola screening Have you traveled outside of the country in the last 21 days: No (N) Have you had contact with anyone from an Ebola affected area: No Do you have a fever: No - Review of Systems Constitutional: Night Sweats, Changes in sleep, Unintentional Wgt. Loss (about 10 pounds) EENT: reports: Nose Congestion Respiratory: reports: No Symptoms reported Cardiac: reports: No Symptoms Reported GI: reports: Nausea, Poor Appetite, Poor Fluid Intake, Abdominal cramping Musculoskeletal: reports: Back Pain Integumentary: reports: Dryness, Flushing Neuro: reports: Tremors Endocrine: reports: No Symptoms Reported Hematology: reports: No Symptoms Reported Psychiatric: reports: Mood/Affect Appropiate, Orientated x3, Anxious, Depressed Other Systems: Reviewed and Negative Patient History - Patient Medical History Hx Anemia: No Hx Asthma: No Hx Chronic Obstructive Pulmonary Disease (COPD): No Hx Cancer: No Hx Cardiac Disorders: No Hx Congestive Heart Failure: No Hx Hypertension: No Hx Hypercholesterolemia: No Hx Pacemaker: No HX Cerebrovascular Accident: No Hx Seizures: No Hx Dementia: No Hx Diabetes: No Hx Gastrointestinal Disorders: No Hx Liver Disease: No Hx Genitourinary Disorders: No Hx Sexually Transmitted Disorders: No Hx Renal Disease (ESRD): No Hx Thyroid Disease: No Hx Human Immunodeficiency Virus (HIV): No (last 2019 negative) Hx Hepatitis C: No Hx Depression: Yes Hx Suicide Attempt: No Hx Bipolar Disorder: Yes Hx Schizophrenia: Yes - Patient Surgical History Past Surgical History: No Hx Neurologic Surgery: No Hx Cataract Extraction: No Hx Cardiac Surgery: No Hx Lung Surgery: No Hx Breast Surgery: No Hx Breast Biopsy: No Hx Abdominal Surgery: No Hx Appendectomy: No Hx Cholecystectomy: No Hx Genitourinary Surgery: No Hx Section: No Hx Orthopedic Surgery: No Anesthesia Reaction: No - PPD History Previous Implant?: Yes Documented Results: Negative w/proof Implanted On Prior [facility] Admission?: Yes Date: 09/11/18 Results: 0mm PPD to be Administered?: No - Reproductive History Patient is a Female of Child Bearing Age (11 -55 yrs old): No (male) - Smoking Cessation Smoking history: Current every day smoker Have you smoked in the past 12 months: Yes Aproximately how many cigarettes per day: 10 Cigars Per Day: 0 Hx Chewing Tobacco Use: No Initiated information on smoking cessation: Yes 'Breaking Loose' booklet given: 06/06/19 - Substance & Tx. History Hx Alcohol Use: Yes Hx Substance Use: Yes Substance Use Type: Alcohol, Cocaine Hx Substance Use Treatment: Yes ([facility]) - Substances abused Alcohol Substance route: Oral Frequency: Daily Amount used: 1/5 vodka and 1 six pack daily Age of first use: 17 Date of last use: 06/05/19 Alprazolam (Xanax) Substance route: Oral Frequency: 1-2 times per week Amount used: 2 mg Age of first use: 34 Date of last use: 06/02/19 Cocaine Substance route: Inhalation Frequency: 3-6 times per week Amount used: $50 Age of first use: 19 Date of last use: 06/02/19 Heroin Substance route: Inhalation Frequency: 1-3 times last 30 days Amount used: 1 bag Age of first use: 19 Date of last use: 06/02/19 Benzodiazepine (Klonopin) Substance route: Oral Frequency: 1-2 times per week Amount used: 2-3 PILLS Age of first use: 34 Date of last use: 06/02/19 Admission Physical Exam [facility] - Vital Signs Vital Signs: Vital Signs - 24 hr 06/05/19 06/05/19 20:40 22:42 Temperature 97.6 F 97.6 F Pulse Rate 96 H 96 H Respiratory 18 18 Rate Blood Pressure 113/68 113/68 - Physical General Appearance: Yes: Moderate Distress, Tremorous, Sweating HEENTM: Yes: Within Normal Limits Respiratory: Yes: Lungs Clear, Normal Breath Sounds, No Respiratory Distress Neck: Yes: Supple Breast: Yes: Breast Exam Deferred Cardiology: Yes: Tachycardia Abdominal: Yes: Normal Bowel Sounds Genitourinary: Yes: Within Normal Limits Back: Yes: Normal Inspection Musculoskeletal: Yes: Within Normal Limits Extremities: Yes: Tremors Neurological: Yes: Alert, Normal Mood/Affect Integumentary: Yes: Warm Lymphatic: Yes: Within Normal Limits - Diagnostic (1) Alcohol dependence with uncomplicated withdrawal Current Visit: Yes Status: Acute (2) Cocaine abuse Current Visit: Yes Status: Chronic (3) Depression Current Visit: Yes Status: Chronic Qualifiers: Depression Type: unspecified Qualified Code(s): F32.9 - Major depressive disorder, single episode, unspecified (4) Dehydration Current Visit: Yes Status: Acute (5) Anxiety Current Visit: Yes Status: Chronic (6) Cocaine dependence Current Visit: Yes Status: Chronic Qualifiers: Substance use status: uncomplicated Qualified Code(s): F14.20 - Cocaine dependence, uncomplicated Cleared for Admission [facility] - Detox or Rehab [facility] Level of Care: Medically Managed Detox Regimen/Protocol: Librium Breathalyzer - Breathalyzer Breathalyzer: 0.031 Urine Drug Screen - Test Device Lot number: [id number] Expiration date: 02/21/21 - Control Is test valid?: Yes - Results Drug screen NEGATIVE: No Urine drug screen results: ZOHRA-Cocaine Inpatient Rehab Admission - Rehab Decision to Admit Inpatient rehab admission?: No
[2019-06-06] MEDS ORDERED: METHOCARBAMOL 500 MG TABLET PO PRN (00:17)
[2019-06-06] MEDS ORDERED: BISMUTH SUBSALICYLATE 524 MG/30 ML UD PO PRN (00:17)
[2019-06-06] MEDS ORDERED: MAGNESIUM HYDROX 2400MG/30ML ORAL SUSPENSION 30 ML CUP PO PRN (00:17)
[2019-06-06] MEDS ORDERED: MELATONIN 5 MG TABLETS PO PRN (00:17)
[2019-06-06] MEDS ORDERED: MENTHOL/PHENOL 1 EACH UD MM PRN (00:17)
[2019-06-06] MEDS ORDERED: NICOTINE POLACRILEX 2 MG GUM BUC PRN (00:17)
[2019-06-06] MEDS ORDERED: hydrOXYzine PAMOATE 25 MG CAPSULE (FP) PO PRN (00:17)
[2019-06-06] MEDS ORDERED: ACETAMINOPHEN 325 MG TABLET (FP) PO PRN ×2 (00:17)
[2019-06-06] MEDS ORDERED: MAG HYDROX/AL HYDROX/SIMETH 30 ML UNIT-DOSE CUP PO PRN (00:17)
[2019-06-06] MEDS ORDERED: IBUPROFEN 400 MG TABLET (FP) PO PRN (00:17)
[2019-06-06] MEDS ORDERED: MAGNESIUM CITRATE 300 ML BOTTLE PO PRN (00:17)
[2019-06-06] MEDS ORDERED: chlordiazePOXIDE HCL 10 MG CAPSULE PO PRN (01:21)
[2019-06-06] MEDS: chlordiazePOXIDE HCL 25 MG CAPSULE PO SCH ×3 (06:10→23:09)
--- NOTE | 2019-06-06 09:31 | EKG ---
Test Reason : Blood Pressure : / mmHG Vent. Rate : 069 BPM Atrial Rate : 069 BPM P-R Int : 148 ms QRS Dur : 088 ms QT Int : 426 ms P-R-T Axes : 072 -24 056 degrees QTc Int : 456 ms NORMAL SINUS RHYTHM BIATRIAL ENLARGEMENT ABNORMAL ECG WHEN COMPARED WITH ECG OF 03-MAR-2019 14:10, PREMATURE ATRIAL COMPLEXES ARE NO LONGER PRESENT Confirmed by HARRIS HANNAH, MARLIN ([id number]) on 06/06/2019 9:30:55 AM Referred By: Confirmed By:MARLIN IGLESIAS MD
[2019-06-06] MEDS: NICOTINE 14 MG/24 HOURS TOPICAL PATCH TD SCH (10:20)
[2019-06-06] MEDS: PRENATAL VITAMINS W/ FOLIC ACID TABLET (FP) PO SCH (10:20)
[2019-06-06] MEDS: ARIPiprazole 5 MG TABLET (FP) PO SCH (11:13)
--- NOTE | 2019-06-06 11:26 | PN ---
S CIWA - CIWA Score Nausea/Vomitin-Mild Nausea/No Vomiting Muscle Tremors: 4-Moderate,w/Arms Extend Anxiety: 3 Agitation: 1-Slight > Activity Paroxysmal Sweats: No Perspiration Orientation: 0-Oriented Tacttile Disturbances: 0-None Auditory Disturbances: 1-Very Mild Visual Disturbances: 0-None Headache: 2-Mild CIWA-Ar Total Score: 12 BHS Progress Note (SOAP) Subjective: 49 years old male admitted on 06/05/19 for alcohol and benzo withdrawal sx management treated with librium detox regimen ate breakfast resting on bed feeling tired limited conversation with staff Objective: 06/06/19 11:25 Vital Signs Temperature 97.4 F L 06/06/19 09:20 Pulse Rate 75 06/06/19 09:20 Respiratory Rate 18 06/06/19 09:20 Blood Pressure 119/80 06/06/19 09:20 O2 Sat by Pulse Oximetry (%) 06/06/19 11:25 lab pending Assessment: 06/06/19 11:26 alcohol and benzo withdrawal sx Plan: continue librium detox regimen
--- NOTE | 2019-06-06 13:32 | CONSULT ---
[facility] Psychiatric Consult - Data Date of interview: 06/06/19 Admission source: [facility] Identifying data: This is one of multiple admissions to [facility] for this 49 y/ o AA male self-referred for detoxification (alcohol, cocaine, heroin, nicotine, xanax). Interviewed at [address] [place] [address]. Patient is , a father of three, domiciled, unemployed and currently supported on welfare. Substance Abuse History: Discussed in this session. Details in current [facility] report as follows : Smoking history: Current every day smoker. Have you smoked in the past 12 months: Yes. Aproximately how many cigarettes per day: 10. Cigars Per Day: 0. Hx Chewing Tobacco Use: No. Initiated information on smoking cessation: Yes. 'Breaking Loose' booklet given: 06/06/19. - Substance & Tx. History. Hx Alcohol Use: Yes. Hx Substance Use: Yes. Substance Use Type : Alcohol, Cocaine. Hx Substance Use Treatment: Yes ([facility]). - Substances abused. Alcohol. Substance route: Oral. Frequency: Daily. Amount used: 1/ 5 vodka and 1 six pack daily. Age of first use: 17. Date of last use: . Alprazolam (Xanax). Substance route: Oral. Frequency: 1-2 times per week. Amount used: 2 mg. Age of first use: 34. Date of last use: 06/02/19. * * Cocaine. Substance route: Inhalation. Frequency: 3-6 times per week. Amount used: $50. Age of first use: 19. Date of last use: 06/02/19. Heroin. Substance route: Inhalation. Frequency: 1-3 times last 30 days. Amount used: 1 bag. Age of first use: 19. Date of last use: 06/02/19. Benzodiazepine (Klonopin). Substance route: Oral. Frequency: 1-2 times per week. Amount used: 2-3 PILLS. Age of first use: 34. Date of last use: Medical History: Medical profile is remarkable for chronic lumbar pain, antecedent of a withdrwal-related seizure (years ago) and a history of renal insufficiency. Psychiatric History: History of multiple psychiatric hospitalizations (all at [facility]). Onset of psychiatric disturbances (behavioral) : childhood. Mr Paulino had initially been diagnosed with ADHD and prescribed psychostimulants (psychiatric care was opposed by patient's mother). Diagnosis was later revised to schizophrenia/bipolar disorder. Various medications ( lithium, abilify, wellbutrin, trazodone) were utilized over the years. Patient is still affiliated with the [facility] outpatient program in [facility] ( [facility]PD care). Admits to chronic non-adherence to psychiatric aftercare. Has no recall of the names of psychotropic medications prescribed to him at this time. Dropped out of suboxone maintenance. Patient denies history of suicide attempts. Physical/Sexual Abuse/Trauma History: Patient declines to discuss this domain. Additional Comment: Urine drug screen results: ZOHRA-Cocaine. Noted. Mental Status Exam - Mental Status Exam Alert and Oriented to: Time, Place, Person Cognitive Function: Good Patient Appearance: Well Groomed Mood: Withdrawn, Hopeful Affect: Mood Congruent, Constricted Patient Behavior: Fatigued, Appropriate, Cooperative Speech Pattern: Clear Voice Loudness: Normal Thought Process: Intact, Goal Oriented Thought Disorder: Not Present Hallucinations: Denies Suicidal Ideation: Denies Homicidal Ideation: Denies Insight/Judgement: Poor Sleep: Fair Appetite: Good Muscle strength/Tone: Normal Gait/Station: Normal Psychiatric Findings - Problem List ([place] 1, 2,3) (1) Alcohol dependence with uncomplicated withdrawal Current Visit: Yes Status: Acute (2) Cocaine dependence Current Visit: Yes Status: Chronic Qualifiers: Substance use status: uncomplicated Qualified Code(s): F14.20 - Cocaine dependence, uncomplicated (3) Nicotine dependence Current Visit: Yes Status: Chronic Qualifiers: Nicotine product type: cigarettes Substance use status: uncomplicated Qualified Code(s): F17.210 - Nicotine dependence, cigarettes, uncomplicated Comment: declines gum or patch (4) Substance induced mood disorder Current Visit: Yes Status: Chronic (5) Schizoaffective disorder Current Visit: Yes Status: Chronic Qualifiers: Schizoaffective disorder type: unspecified Qualified Code(s): F25.9 - Schizoaffective disorder, unspecified Comment: As per existing records and self-report.Chronic non-adherence to OPD care and mood stabilizers. (6) Insomnia Current Visit: Yes Status: Chronic (7) Non-compliance Current Visit: Yes Status: Chronic - Initial Treatment Plan Initial Treatment Plan: Psychoeducation. Sleep hygiene. Detoxification. Resumed : abilify 5 mg po daily + wellbutrin 75 mg po daily. Side effects/benefits of both drugs are discussed with patient. Mr Paulino is in agreement with this plan of care. Gave verbal consent to MD. Observation.
[2019-06-06] MEDS: THIAMINE HCL 100 MG TABLET (FP) PO SCH (23:09)
[2019-06-07] MEDS: chlordiazePOXIDE 5 MG CAPSULE PO SCH ×3 (06:17→22:26)
[2019-06-07] MEDS: PRENATAL VITAMINS W/ FOLIC ACID TABLET (FP) PO SCH (09:36)
[2019-06-07] MEDS: buPROPion HCL 75 MG TABLET PO SCH (09:36)
[2019-06-07] MEDS: ARIPiprazole 5 MG TABLET (FP) PO SCH (09:36)
[2019-06-07] MEDS: NICOTINE 14 MG/24 HOURS TOPICAL PATCH TD SCH (09:37)
[2019-06-07 09:42] LABS: HEMATOCRIT 39.8 % (35.4-49); HEMOGLOBIN 13.1 GM/dL (11.7-16.9); MCH 31.8 pg (25.7-33.7); MEAN CELL VOLUME 96.3 fl (80-96); MEAN PLT VOLUME 8.3 fl (7.5-11.1); PLATELET COUNT 224 K/MM3 (134-434); RBC 4.13 M/mm3 (4.00-5.60); RDW 14.3 % (11.9-15.9); WHITE BLOOD COUNT 4.8 K/mm3 (4.0-10.0)
[2019-06-07 10:03] LABS: ALBUMIN 3.1 g/dl (3.4-5.0); BILIRUBIN,TOTAL 0.6 mg/dL (0.2-1); BLOOD UREA NITROGEN 17.9 mg/dL (7-18); CALCIUM 9.2 mg/dL (8.5-10.1); CREATININE 1.3 mg/dL (0.55-1.3); POTASSIUM 4.3 mmol/L (3.5-5.1); TOT PROT 5.8 g/dl (6.4-8.2)
--- NOTE | 2019-06-07 12:58 | PN ---
S CIWA - CIWA Score Nausea/Vomitin-Mild Nausea/No Vomiting Muscle Tremors: 1-None Visible, but [place] Anxiety: 2 Agitation: 2 Paroxysmal Sweats: 1-Minimal Palms Moist Orientation: 0-Oriented Tacttile Disturbances: 1-Very Mild Itch/Numbness Auditory Disturbances: 0-None Visual Disturbances: 0-None Headache: 2-Mild CIWA-Ar Total Score: 10 BHS Progress Note (SOAP) Subjective: alert,irritable,anxious,interrupted sleep,tremor,pain in the body Objective: 06/07/19 12:57 Vital Signs Temperature 96.5 F L 06/07/19 09:10 Pulse Rate 73 06/07/19 09:10 Respiratory Rate 16 06/07/19 09:10 Blood Pressure 123/73 06/07/19 09:10 O2 Sat by Pulse Oximetry (%) Laboratory Last Values WBC 4.8 K/mm3 (4.0-10.0) 06/07/19 07:30 RBC 4.13 M/mm3 (4.00-5.60) 06/07/19 07:30 Hgb 13.1 GM/dL (11.7-16.9) 06/07/19 07:30 Hct 39.8 % (35.4-49) 06/07/19 07:30 MCV 96.3 fl (80-96) H 06/07/19 07:30 MCH 31.8 pg (25.7-33.7) 06/07/19 07:30 MCHC 33.0 g/dl (32.0-35.9) 06/07/19 07:30 RDW 14.3 % (11.9-15.9) 06/07/19 07:30 Plt Count 224 K/MM3 (134-434) 06/07/19 07:30 MPV 8.3 fl (7.5-11.1) 06/07/19 07:30 Sodium 143 mmol/L (136-145) 06/07/19 07:30 Potassium 4.3 mmol/L (3.5-5.1) 06/07/19 07:30 Chloride 110 mmol/L (98-107) H 06/07/19 07:30 Carbon Dioxide 29 mmol/L (21-32) 06/07/19 07:30 Anion Gap 4 MMOL/L (8-16) L 06/07/19 07:30 BUN 17.9 mg/dL (7-18) 06/07/19 07:30 Creatinine 1.3 mg/dL (0.55-1.3) 06/07/19 07:30 Est GFR (CKD-EPI)AfAm 73.74 06/07/19 07:30 Est GFR (CKD-EPI)NonAf 63.62 06/07/19 07:30 Random Glucose 103 mg/dL (74-106) 06/07/19 07:30 Calcium 9.2 mg/dL (8.5-10.1) 06/07/19 07:30 Total Bilirubin 0.6 mg/dL (0.2-1) 06/07/19 07:30 AST 21 U/L (15-37) 06/07/19 07:30 ALT 18 U/L (13-61) 06/07/19 07:30 Alkaline Phosphatase 92 U/L (45-117) 06/07/19 07:30 Total Protein 5.8 g/dl (6.4-8.2) L 06/07/19 07:30 Albumin 3.1 g/dl (3.4-5.0) L 06/07/19 07:30 RPR Titer Nonreactive (NONREACTIVE) 06/07/19 07:30 Assessment: 06/07/19 12:58 withdrawal symptom Plan: continue detox librium regimen,i stop showed patient is on suboxone maintenance 8mg/2 mg tid last filled 05/10/19 90 films for 30 days, will ordered suboxone
[2019-06-07] MEDS: BUPRENORPHINE/NALOXONE 8 MG/2 MG FILM PACKET SL SCH ×2 (14:41→22:27)
[2019-06-07] MEDS: THIAMINE HCL 100 MG TABLET (FP) PO SCH (22:26)
[2019-06-08] MEDS ORDERED: chlordiazePOXIDE HCL 10 MG CAPSULE PO PRN
[2019-06-08] MEDS ORDERED: chlordiazePOXIDE HCL 10 MG CAPSULE PO SCH (05:00)
[2019-06-08] MEDS: BUPRENORPHINE/NALOXONE 8 MG/2 MG FILM PACKET SL SCH (06:53)
[2019-06-08 09:13] VITALS: BP 102/70; PULSE 68; TEMP 97.4
--- NOTE | 2019-06-08 09:14 | PN ---
[facility] CIWA - CIWA Score Nausea/Vomitin-No Nausea/No Vomiting Muscle Tremors: 1-None Visible, but [place] Anxiety: 1-Mildly Anxious Agitation: 1-Slight > Activity Paroxysmal Sweats: No Perspiration Orientation: 0-Oriented Tacttile Disturbances: 0-None Auditory Disturbances: 0-None Visual Disturbances: 0-None Headache: 0-None Present CIWA-Ar Total Score: 3 [facility] Progress Note (SOAP) Subjective: alert,no complaint Objective: 06/08/19 09:13 Vital Signs Temperature 97.4 F L 06/08/19 09:12 Pulse Rate 68 06/08/19 09:12 Respiratory Rate 18 06/08/19 09:12 Blood Pressure 102/70 06/08/19 09:12 O2 Sat by Pulse Oximetry (%) Assessment: 06/08/19 09:13 no withdrawal symptom Plan: discharge today,follow up with after care program as arrangement
--- NOTE | 2019-06-08 09:20 | DS ---
[facility] Detox Discharge Summary Admission Date: 06/06/19 Discharge Date: 06/08/19 - History Present History: Alcohol Dependence, Cocaine Dependence, Sedative Dependence Additional Comments: follow up with own provider for suboxone maintenance Pertinent Past History: encounter suboxone maintenance - Physical Exam Results Vital Signs: Vital Signs Temperature 97.4 F L 06/08/19 09:12 Pulse Rate 68 06/08/19 09:12 Respiratory Rate 18 06/08/19 09:12 Blood Pressure 102/70 06/08/19 09:12 O2 Sat by Pulse Oximetry (%) Pertinent Admission Physical Exam Findings: Vital Signs Temperature 97.4 F L 06/08/19 09:12 Pulse Rate 68 06/08/19 09:12 Respiratory Rate 18 06/08/19 09:12 Blood Pressure 102/70 06/08/19 09:12 O2 Sat by Pulse Oximetry (%) - Treatment Hospital Course: Detox Protocol Followed, Detoxed Safely, Responded well, Discharged Condition Good Patient has Accepted a Rehab Referral to: [facility] - Medication Discharge Medications: Ambulatory Orders Hydroxyzine HCl 50 mg PO TID PRN 03/03/19 [place] Carbonate [Eskalith -] 150 mg PO DAILY 03/03/19 Aripiprazole [Abilify -] 5 mg PO DAILY #30 tablet 03/12/19 Bupropion HCl [Wellbutrin -] 100 mg PO DAILY #30 tablet 03/12/19 Buprenorphine HCl/Naloxone HCl [Suboxone 8 mg-2 mg Sl Tablets] 1 each SL TID - Diagnosis (1) Alcohol dependence with uncomplicated withdrawal Current Visit: Yes Status: Acute (2) Cocaine dependence Current Visit: Yes Status: Chronic Qualifiers: Substance use status: uncomplicated Qualified Code(s): F14.20 - Cocaine dependence, uncomplicated (3) Encounter for monitoring Suboxone maintenance therapy Current Visit: No Status: Chronic (4) Sedative hypnotic or anxiolytic dependence Current Visit: No Status: Chronic - AMA Did Patient Leave Against Medical Advice: No
[2019-06-08] MEDS: NICOTINE 14 MG/24 HOURS TOPICAL PATCH TD SCH (10:38)
[2019-06-08] MEDS: PRENATAL VITAMINS W/ FOLIC ACID TABLET (FP) PO SCH (10:38)
[2019-06-08] MEDS: ARIPiprazole 5 MG TABLET (FP) PO SCH (10:38)
[2019-06-08] MEDS: buPROPion HCL 75 MG TABLET PO SCH (10:38)
[2019-06-09] MEDS ORDERED: chlordiazePOXIDE HCL 10 MG CAPSULE PO ONE (05:00)
== END 2019-06-08 10:05 | disposition home or self-care (01) | DRG 774 ==
LOC: YASAS 18:52 → Y3N 06-06 01:01
PROVIDERS: ADMIT Allergy & Immunology; ATTEND Allergy & Immunology
PROC: HZ2ZZZZ Detoxification Services for Substance Abuse Treatment (ICD-10-PCS; principal; 2019-06-06)
DX: F10.230 Alcohol dependence with withdrawal, uncomplicated (principal); F13.20 Sedative, hypnotic or anxiolytic dependence, uncomplicated; F14.20 Cocaine dependence, uncomplicated; F25.9 Schizoaffective disorder, unspecified; F19.24 Other psychoactive substance dependence with psychoactive substance-induced mood disorder; F32.9 Major depressive disorder, single episode, unspecified; G47.00 Insomnia, unspecified; Z51.81 Encounter for therapeutic drug level monitoring; Z91.19 Patient's noncompliance with other medical treatment and regimen
CPT/HCPCS: 36415; 80053; 85027; 86593; 93005; 93010

== ENCOUNTER 2022-01-01 10:53 | Inpatient (IN) | payer OTHER ==
[2022-01-01 11:29] VITALS: BMI 25.4
[2022-01-01] MEDS ORDERED: NICOTINE 10 MG CARTRIDGE (INHALER) IH PRN (12:27)
[2022-01-01] MEDS ORDERED: ONDANSETRON *ODT* 4 MG TABLET SL PRN (12:27)
[2022-01-01] MEDS ORDERED: BENZOCAINE/MENTHOL (CHLORASEPTIC ) LOZENGE MM PRN (12:27)
[2022-01-01] MEDS ORDERED: LOPERAMIDE HCL 2 MG CAPSULE PO PRN (12:27)
[2022-01-01] MEDS ORDERED: BISMUTH SUBSALICYLATE 262 MG/15 ML BTL PO PRN (12:27)
[2022-01-01] MEDS ORDERED: MAGNESIUM CITRATE 300 ML BOTTLE PO PRN (12:27)
[2022-01-01] MEDS ORDERED: ACETAMINOPHEN 325 MG TABLET (FP) PO PRN ×2 (12:27)
[2022-01-01] MEDS ORDERED: MAG HYDROX/AL HYDROX/SIMETH 30 ML UNIT-DOSE CUP PO PRN (12:27)
[2022-01-01] MEDS ORDERED: IBUPROFEN 400 MG TABLET (FP) PO PRN (12:27)
[2022-01-01] MEDS ORDERED: MAGNESIUM HYDROX 2400MG/30ML ORAL SUSPENSION 30 ML CUP PO PRN (12:27)
[2022-01-01] MEDS ORDERED: DICYCLOMINE HCL 10 MG CAPSULE PO PRN (12:27)
[2022-01-01] MEDS: hydrOXYzine PAMOATE 25 MG CAPSULE (FP) PO SCH (18:47)
[2022-01-02] MEDS: MELATONIN 5 MG TABLETS PO SCH ×2 (00:43→22:30)
[2022-01-02] MEDS: THIAMINE HCL 100 MG TABLET (FP) PO SCH ×2 (00:43→22:29)
[2022-01-02] MEDS: hydrOXYzine PAMOATE 25 MG CAPSULE (FP) PO SCH ×6 (00:43→22:29)
[2022-01-02] MEDS ORDERED: chlordiazePOXIDE HCL 25 MG CAPSULE PO PRN (09:58)
[2022-01-02] MEDS: chlordiazePOXIDE HCL 25 MG CAPSULE PO SCH ×3 (10:36→22:29)
[2022-01-02] MEDS: PRENATAL VITAMINS W/ FOLIC ACID TABLET (FP) PO SCH (10:38)
[2022-01-02] MEDS: NICOTINE 7 MG/24 HOURS TOPICAL PATCH TD SCH (10:39)
[2022-01-02] MEDS: ARTIFICIAL TEARS (POLYVINYL ALCOHOL) OPTH DROPS OU PRN ×2 (11:30→22:31)
[2022-01-02] MEDS: IBUPROFEN 600 MG TABLET (FP) PO PRN ×2 (11:33→19:14)
[2022-01-02] MEDS: METHOCARBAMOL 500 MG TABLET PO PRN (22:29)
[2022-01-03] MEDS: chlordiazePOXIDE HCL 25 MG CAPSULE PO SCH ×4 (06:06→22:34)
[2022-01-03] MEDS: hydrOXYzine PAMOATE 25 MG CAPSULE (FP) PO SCH ×5 (06:06→22:32)
[2022-01-03] MEDS: PRENATAL VITAMINS W/ FOLIC ACID TABLET (FP) PO SCH (10:54)
[2022-01-03] MEDS: NICOTINE 7 MG/24 HOURS TOPICAL PATCH TD SCH (10:55)
[2022-01-03] MEDS: IBUPROFEN 600 MG TABLET (FP) PO PRN (10:55)
[2022-01-03] MEDS: ARTIFICIAL TEARS (POLYVINYL ALCOHOL) OPTH DROPS OU PRN (10:56)
[2022-01-03] MEDS: METHOCARBAMOL 500 MG TABLET PO PRN (10:57)
[2022-01-03] MEDS: ARIPiprazole 5 MG TABLET PO SCH (11:46)
[2022-01-03 11:58] LABS: HEMATOCRIT 39.5 % (35.4-49); HEMOGLOBIN 13.1 GM/dL (11.7-16.9); MCH 32.5 pg (25.7-33.7); MCHC 33.2 g/dl (32.0-35.9); MEAN PLT VOLUME 8.1 fl (7.5-11.1); PLATELET COUNT 213 10^3/uL (134-434); RBC 4.03 M/mm3 (4.00-5.60); RDW 13.9 % (11.9-15.9); WHITE BLOOD COUNT 4.5 K/mm3 (4.0-10.0)
[2022-01-03 12:03] LABS: ALBUMIN 2.9 g/dl (3.4-5.0); CALCIUM 9.1 mg/dL (8.5-10.1)
[2022-01-03 12:04] LABS: BLOOD UREA NITROGEN 17.6 mg/dL (7-18)
[2022-01-03 12:08] LABS: BILIRUBIN,TOTAL 0.4 mg/dL (0.2-1); TOT PROT 5.6 g/dl (6.4-8.2)
[2022-01-03 13:05] LABS: HIV INTERPRETATION NEGATIVE (NEGATIVE)
[2022-01-03] MEDS: MELATONIN 5 MG TABLETS PO SCH (22:32)
[2022-01-03] MEDS: THIAMINE HCL 100 MG TABLET (FP) PO SCH (22:32)
[2022-01-03 22:37] VITALS: TEMP 97.1
[2022-01-04] MEDS: hydrOXYzine PAMOATE 25 MG CAPSULE (FP) PO SCH ×2 (07:19→09:39)
[2022-01-04] MEDS: chlordiazePOXIDE HCL 25 MG CAPSULE PO SCH ×2 (07:19→11:00)
[2022-01-04 08:51] VITALS: BP 136/101; PULSE 78
[2022-01-04] MEDS: PRENATAL VITAMINS W/ FOLIC ACID TABLET (FP) PO SCH (09:39)
[2022-01-04] MEDS: NICOTINE 7 MG/24 HOURS TOPICAL PATCH TD SCH (09:39)
[2022-01-04] MEDS: ARIPiprazole 5 MG TABLET PO SCH (09:39)
[2022-01-05] MEDS ORDERED: chlordiazePOXIDE HCL 10 MG CAPSULE PO PRN
[2022-01-05] MEDS ORDERED: chlordiazePOXIDE HCL 10 MG CAPSULE PO SCH (05:00)
[2022-01-06] MEDS ORDERED: chlordiazePOXIDE HCL 10 MG CAPSULE PO SCH (05:00)
[2022-01-07] MEDS ORDERED: chlordiazePOXIDE HCL 10 MG CAPSULE PO ONE (05:00)
== END 2022-01-04 09:32 | disposition left against medical advice (07) | DRG 770 ==
LOC: YASAS 10:53 → Y3N 14:29
PROVIDERS: ADMIT Allergy & Immunology; ATTEND Surgery
PROC: HZ2ZZZZ Detoxification Services for Substance Abuse Treatment (ICD-10-PCS; principal; 2022-01-01)
DX: F10.230 Alcohol dependence with withdrawal, uncomplicated (principal); F14.20 Cocaine dependence, uncomplicated; F12.20 Cannabis dependence, uncomplicated; F17.210 Nicotine dependence, cigarettes, uncomplicated; F25.9 Schizoaffective disorder, unspecified; F19.282 Other psychoactive substance dependence with psychoactive substance-induced sleep disorder; F19.24 Other psychoactive substance dependence with psychoactive substance-induced mood disorder; F31.9 Bipolar disorder, unspecified; F51.05 Insomnia due to other mental disorder; H11.31 Conjunctival hemorrhage, right eye; M54.50 Low back pain, unspecified; G89.29 Other chronic pain; Z91.19 Patient's noncompliance with other medical treatment and regimen; Z87.448 Personal history of other diseases of urinary system
CPT/HCPCS: 36415; 80053; 85027; 86780; 87389; C9803-CS; U0003; U0005